=== PATIENT | male | born 1985 | race Caucasian/White ===

== ENCOUNTER 2020-12-17 12:54 | Emergency (ER) | payer MEDICAID, SELFPAY ==
[2020-12-17 13:08] VITALS: BP 151/99; PULSE 100; RESP 16; TEMP 36.9; O2SAT 99; BMI 29.2
--- NOTE | 2020-12-17 14:15 | XR_ITS ---
EXAMINATION: XR ELBOW, RIGHT CLINICAL INFORMATION: Pain, swelling, redness and warmth COMPARISON: None TECHNIQUE: AP, lateral, and oblique views of the right elbow. FINDINGS: Bone alignment is normal. No fracture or dislocation is seen. The joint spaces are normal. There is no joint effusion. There may be soft tissue swelling along the medial elbow, lower arm and forearm. XR/XR elbow RT min 3V IMPRESSION: Medial soft tissue swelling. Otherwise normal elbow.
--- NOTE | 2020-12-17 14:15 | ED.GENADULT ---
HPI - General Adult General Chief complaint: Skin/Abscess/Foreign Body Stated complaint: RIGHT ELBOW PAIN X'S 3 DAYS, ? SPIDER BITE Time Seen by Provider: 12/17/20 14:13 Source: patient Mode of arrival: ambulatory Limitations: language barrier History of Present Illness HPI narrative: 35 y/o male with history of DM, HTN presenting with right elbow pain, swelling and warmth after a possible spider bite. He reports an opening with clear drainage. No fevers at home. He has full ROM of the elbow. MD complaint: elbow pain Onset (ago): day(s) (3) Location: right and upper extremity Radiation: non-radiation Severity: moderate Severity scale (1-10): 6 Quality: burning and aching Pain Consistency: constant Relieving factors: none Exacerbating factors: movement Associated symptoms: denies other symptoms Treatments prior to arrival: none Related Data Previous Rx's Medication Instructions Recorded cephalexin [Keflex] 500 mg PO QID #28 cap 12/17/20 doxycycline monohydrate 100 mg PO BID #20 cap 12/17/20 Allergies Allergy/AdvReac Type Severity Reaction Status Date / Time No Known Allergies Allergy Unverified 08/14/20 17:22 Review of Systems Review of Systems: Constitutional: No Fever, No Chills ENT/Mouth: No sore throat Cardiovascular: No Chest Pain, No SOB, + Edema (right upper forarm) Respiratory: No Cough, No Sputum Gastrointestinal: No Nausea, No Vomiting Skin: + Skin Lesions, No rash Neuro: No Weakness, No Numbness, No Dizziness, No Headache Heme/Lymph: No Bruising PMFSH Past Medical History Attestation statement: The following information was validated with the patient. Medical History Diabetes Physical Exam Vital Signs: Vital Signs: Last Vital Signs Temp 98.4 F 12/17/20 13:08 Pulse 100 12/17/20 13:08 Resp 16 12/17/20 13:08 BP 151/99 H 12/17/20 13:08 Pulse Ox 99 12/17/20 13:08 Body Mass Index 29.2 Appearance: Alert. Oriented X3. No acute distress. HEENT: normal inspection CVS: Normal heart rate and rhythm. Pulses normal. Respiratory: No respiratory distress. Skin: Skin warm and dry. Normal skin color. Normal skin turgor. No rashes. Extremities: right dorsal elbow with erythema, warmth and swelling. minimal tenderness full ROM without pain. small wound with clear discharge, orange colored scabbing. no palpable abscess. compartments soft and compressable. Neuro: Oriented X 3. No motor deficit. No sensory deficit. Course Course Course Narrative: rapid medical assessment - 35 y/o male with hx DM, HTN presenting with 3 days of red, painful swollen right elbow with small amount of pus draining. ?Spider bite per patient. Will get XR of elbow and plan to start abx. Reevaluation(s) Reevaluation #1: XR shows soft tissue swelling. Will start abx - risk for MRSA, hx DM. Will refer to [facility] and have him f/u with PCP. He has been counseled on warning signs/symptoms to come back to the ER. Stable for d/c. Discharge Plan Discharge Clinical Impression: Cellulitis Qualifiers: Site of cellulitis: extremity Site of cellulitis of extremity: upper extremity Laterality: right Qualified Code(s): L03.113 - Cellulitis of right upper limb Patient Disposition: Home, Self-Care Instructions: Cellulitis (ED) Additional Instructions: Your x-ray showed soft tissue swelling. You are being started on 2 antibiotics for infection in the skin. Use warm soaks to your elbow multiple times per day. Elevate your arm when possible. Follow up with the Wound Center and your doctor. If the redness and swelling get worse, or if you can no longer bend or extend your elbow come back to the ER for further evaluation. Prescriptions: New doxycycline monohydrate 100 mg capsule 100 mg PO BID Qty: 20 RF: 0 cephalexin [Keflex] 500 mg capsule 500 mg PO QID Qty: 28 RF: 0 Referrals: [facility] [Outside] - 2 days Print Language: Syrian
--- NOTE | 2020-12-17 14:39 | PC.NURSE ---
PT EVALUATED BY HAYDEN COLLADO. PT AWARE/AGREEABLE TO PLAN OF CARE AND PENDING D/C.
== END 2020-12-17 14:52 | disposition home or self-care (01) ==
PROVIDERS: Emergency Provider Emergency Medicine
DX: L03.113 Cellulitis of right upper limb (principal); M25.521 Pain in right elbow; Z79.899 Other long term (current) drug therapy
CPT/HCPCS: 73080; 99283

== ENCOUNTER 2021-02-24 10:42 | Emergency (ER) | payer MEDICAID, SELFPAY ==
[2021-02-24 10:58] VITALS: BP 150/117; PULSE 88; RESP 18; TEMP 37.2; O2SAT 98; BMI 30.5
--- NOTE | 2021-02-24 11:11 | ED_ITS ---
HPI - Dental/Oral General Chief complaint: Dental/Oral Stated complaint: DENTAL PAIN Time Seen by Provider: 02/24/21 11:05 Source: patient and family Mode of arrival: ambulatory Limitations: no limitations History of Present Illness HPI Narrative: 35 y/o male presenting with 1 week of left upper tooth pain. He called an emergency dentist at [facility] and has an appointment on 03/11. They were worried about a possible infection and told him to complete a course of antibiotics before being seen. He denies fever, chills, facial swelling. He reports pain with eating and worsening pain last night. He has been taking extra strength tylenol with minimal relief. He has history of dental caries and extractions in the past. Location: Tooth # (2) Onset (ago): day(s) (7) Duration: worsening Severity: severe Relieving factors: nothing Exacerbating factors: chewing Context: history of dental caries and poor dental care Treatment prior to arrival: none Related Data Previous Rx's Medication Instructions Recorded cephalexin [Keflex] 500 mg PO QID #28 cap 12/17/20 doxycycline monohydrate 100 mg PO BID #20 cap 12/17/20 ibuprofen 600 mg PO Q8H PRN #20 tab 02/24/21 penicillin V potassium 500 mg PO BID #20 tab 02/24/21 tramadol 50 mg PO BID PRN #5 tab 02/24/21 Allergies Allergy/AdvReac Type Severity Reaction Status Date / Time No Known Allergies Allergy Verified 02/24/21 11:00 Review of Systems Review of Systems: Constitutional: No Fever, No Chills ENT/Mouth: No sore throat, No Rhinorrhea, No Swallowing Difficulty, +dental pain Cardiovascular: No Chest Pain, No SOB Respiratory: No Cough, No Sputum Gastrointestinal: No Nausea, No Vomiting, No Diarrhea, No abdominal Pain Skin: No Skin Lesions, No rash Neuro: + Headache Psych: No Anxiety/Panic, No Depression Heme/Lymph: No Lymphadenopathy PMFSH Past Medical History Attestation statement: The following information was validated with the patient. Medical History Diabetes Social History Social History Advance Directives: No Advance Directives Information Provided: No Physical Exam Vital Signs: Vital Signs: Last Vital Signs Temp 98.9 F 02/24/21 10:58 Pulse 88 02/24/21 10:58 Resp 18 02/24/21 10:58 BP 150/117 H 02/24/21 10:58 Pulse Ox 98 02/24/21 10:58 Body Mass Index 30.5 Appearance: Alert. Oriented X3. No acute distress. HEENT: normal external inspection, upper pre-molar with mild decay, mild gingival erythema and tenderness without palpable abscess, uvula midline, no LAD, no trismus CVS: Normal heart rate and rhythm. Pulses normal. Respiratory: No respiratory distress. Skin: Skin warm and dry. Normal skin color. Normal skin turgor. No rashes. Extremities: atraumatic, no edema. Neuro: Oriented X 3. No motor deficit. No sensory deficit. Course Course Course Narrative: 35 y/o male presenting with upper left premolar pain x1 week. No evidence of abscess on exam. Will treat with NSAID, abx and have him follow up as scheduled. He is stable for d/c, instructed to return to the ER if wor sening pain or swelling. Critical Care Time Critical Care Time Critical Care Time: No Discharge Plan Discharge Clinical Impression: Toothache Patient Disposition: Home, Self-Care Instructions: Toothache (ED) Additional Instructions: Take the prescribed antibiotic until it is completely gone. Take ibuprofen every 6 hours as needed for pain - take with food. Take tramadol as needed for severe pain. Do not drive after taking this, it can make you drowsy. Follow up with your dentist as scheduled in 2 weeks. If you have worsening pain despite prescribed medications come back to the ER for further evaluation. Prescriptions: New ibuprofen 600 mg tablet 600 mg PO Q8H PRN (Reason: pain) Qty: 20 RF: 0 penicillin V potassium 500 mg tablet 500 mg PO BID Qty: 20 RF: 0 tramadol 50 mg tablet 50 mg PO BID PRN (Reason: pain) Qty: 5 RF: 0 No Action doxycycline monohydrate 100 mg capsule 100 mg PO BID Qty: 20 RF: 0 cephalexin [Keflex] 500 mg capsule 500 mg PO QID Qty: 28 RF: 0 Stand Alone Forms: Work/School Release Discharge Date/Time: 02/24/21 11:30
== END 2021-02-24 11:30 | disposition home or self-care (01) ==
PROVIDERS: Emergency Provider Emergency Medicine; PCP Internal Medicine
DX: K08.89 Other specified disorders of teeth and supporting structures (principal); Z79.899 Other long term (current) drug therapy
CPT/HCPCS: 99283

== ENCOUNTER 2021-04-17 23:14 | Emergency (ER) | payer MEDICAID, SELFPAY ==
[2021-04-17 23:22] VITALS: BP 170/111; PULSE 115; RESP 14; O2SAT 100; BMI 30.1
[2021-04-18 00:09] VITALS: BP 158/104; PULSE 89; RESP 16; TEMP 36.9; O2SAT 97
--- NOTE | 2021-04-18 01:58 | PC.NURSE ---
PT LEFT AMA, PT EDUCATED ON THE DANGERS OF LEAVING AMA, BUT PT STILL WISHED TO LEAVE. PT REFUSED TO HAVE VITAL SIGNS TAKEN PRIOR TO D/C, PT IS A+O, AMBULATORY, STEADY GAIT, AND ACCOMPANIED BY FAMILY.
--- NOTE | 2021-04-18 02:06 | ED.DIZZY ---
HPI - Dizziness General Chief Complaint: Dizziness Stated Complaint: dizzy Time Seen by Provider: 04/18/21 01:48 Related Data Previous Rx's Medication Instructions Recorded cephalexin [Keflex] 500 mg PO QID #28 cap 12/17/20 doxycycline monohydrate 100 mg PO BID #20 cap 12/17/20 ibuprofen 600 mg PO Q8H PRN #20 tab 02/24/21 penicillin V potassium 500 mg PO BID #20 tab 02/24/21 tramadol 50 mg PO BID PRN #5 tab 02/24/21 Allergies Allergy/AdvReac Type Severity Reaction Status Date / Time No Known Allergies Allergy Verified 02/24/21 11:00 [facility] Past Medical History Medical History Diabetes Social History Social History Alcohol intake: never Smoking Status: Never smoker Use of substances other than those prescribed or required for medical reasons: No Advance Directives: No Advance Directives Information Provided: Yes Physical Exam Vital Signs: Vital Signs: Last Vital Signs Temp 98.5 F 04/18/21 00:09 Pulse 89 04/18/21 00:09 Resp 16 04/18/21 00:09 BP 158/104 H 04/18/21 00:09 Pulse Ox 97 04/18/21 00:09 Body Mass Index 30.1 Discharge Plan Discharge Patient Disposition: Left Against Medical Advice Prescriptions: No Action doxycycline monohydrate 100 mg capsule 100 mg PO BID Qty: 20 RF: 0 cephalexin [Keflex] 500 mg capsule 500 mg PO QID Qty: 28 RF: 0 ibuprofen 600 mg tablet 600 mg PO Q8H PRN (Reason: pain) Qty: 20 RF: 0 penicillin V potassium 500 mg tablet 500 mg PO BID Qty: 20 RF: 0 tramadol 50 mg tablet 50 mg PO BID PRN (Reason: pain) Qty: 5 RF: 0 Discharge Date/Time: 04/18/21 01:59
== END 2021-04-18 01:59 | disposition left against medical advice (07) ==
PROVIDERS: Emergency Provider Student in an Organized Health Care Education/Training Program; PCP Internal Medicine
DX: R42 Dizziness and giddiness (principal)
CPT/HCPCS: 99284

== ENCOUNTER 2021-04-18 21:19 | Emergency (ER) | payer MEDICAID, SELFPAY ==
[2021-04-18 22:29] VITALS: BP 165/96; PULSE 91; RESP 16; TEMP 36.8; O2SAT 99; BMI 30.1
[2021-04-19 02:00] VITALS: BP 151/101; PULSE 78; RESP 18; O2SAT 98
--- NOTE | 2021-04-19 02:37 | ECG_ITS ---
Test Reason : HEADACHE Blood Pressure : / mmHG Vent. Rate : 072 BPM Atrial Rate : 072 BPM P-R Int : 172 ms QRS Dur : 086 ms QT Int : 380 ms P-R-T Axes : 042 008 -04 degrees QTc Int : 416 ms Normal sinus rhythm Nonspecific ST and T wave abnormality Abnormal ECG When compared with ECG of 03-SEP-2011 23:55, ST elevation now present in Anterior leads Referred By: Elvie Underowod Electronically Signed By:BEL VANG MD
[2021-04-19 02:58] LABS: MANUAL DIFF FLAG NO
[2021-04-19 02:59] LABS: Basophils Percent Auto 0.2 % (0-2); Eosinophils Absolute Auto 0.1 X10*3/uL (0.0-0.4); Eosinophils Percent Auto 1.1 % (0-4); Hematocrit 43.5 % (42-52); Hemoglobin 13.4 g/dl (14.0-18.0); Imm Gran Abs Auto 0.04 X10*3/uL (0.00-0.03); Imm Gran Pct Auto 0.4 % (0.0-0.4); Lymphocytes Absolute Auto 3.3 X10*3/uL (1.2-4.9); Lymphocytes Percent Auto 34.1 % (20-40); Mean Corpuscular HGB Conc 30.8 g/dl (31.0-36.0); Mean Corpuscular Hemoglobin 22.8 pg (27.0-33.0); Mean Platelet Volume 10.4 fL (9.4-12.4); Monocytes Absolute Auto 0.6 X10*3/uL (0.1-1.2); Monocytes Percent Auto 6.5 % (2-11); Neutrophils Absolute Auto 5.6 X10*3/uL (2.0-8.3); Neutrophils Percent Auto 57.7 % (45-73); Platelet Count 255 X10*3/uL (160-400); Red Blood Count 5.88 X10*6/uL (4.60-5.80); White Blood Count 9.7 X10*3/uL (4.8-10.8)
--- NOTE | 2021-04-19 03:13 | ED.GENADULT ---
HPI - General Adult General Chief complaint: Headache Stated complaint: High blood pressure Time Seen by Provider: 04/19/21 00:04 Source: patient Mode of arrival: ambulatory History of Present Illness HPI narrative: 36-year-old male with history of diabetes and recently found out that he has high blood pressure and now has been experiencing mild headaches that resolved with Tylenol and currently that has resolved. He denies any shortness of breath, chest pain/palpitations, GI or symptoms. Related Data Previous Rx's Medication Instructions Recorded cephalexin [Keflex] 500 mg PO QID #28 cap 12/17/20 doxycycline monohydrate 100 mg PO BID #20 cap 12/17/20 ibuprofen 600 mg PO Q8H PRN #20 tab 02/24/21 penicillin V potassium 500 mg PO BID #20 tab 02/24/21 tramadol 50 mg PO BID PRN #5 tab 02/24/21 hydrochlorothiazide 12.5 mg PO DAILY 14 Days #14 tab 04/19/21 Allergies Allergy/AdvReac Type Severity Reaction Status Date / Time No Known Allergies Allergy Verified 04/18/21 22:33 Review of Systems Review of Systems: Pertinent positives and negatives as stated in HPI 10 point review systems is other otherwise negative PMFSH Past Medical History Source: nursing notes reviewed Medical History Diabetes Social History Social History Alcohol intake: never Smoking Status: Current every day smoker Smoked in Last 30 Days: Yes Substance Use Type: Marijuana Advance Directives: No Physical Exam Vital Signs: Vital Signs: Last Vital Signs Temp 98.2 F 04/18/21 22:29 Pulse 78 04/19/21 02:00 Resp 18 04/19/21 02:00 BP 151/101 H 04/19/21 02:00 Pulse Ox 98 04/19/21 02:00 Body Mass Index 30.1 VITAL SIGNS: Reviewed. GENERAL: Well developed, well nourished, in no acute distress. HEAD: Normocephalic/atraumatic EYES: PERRLA, EOMI NOSE: Nares patent bilateral OROPHARYNX: no oral lesions noted, posterior pharynx clear NECK: Supple, no adenopathy LUNGS: Normal breath sounds. No adventitious sounds or accessory muscle use. SpO2<98> CARDIOVASCULAR: Regular rate and rhythm without noted murmurs, no JVD or lower extremity edema. ABDOMEN: Soft, non-tender, non-distended with bowel sounds. NEUROLOGIC: Alert and oriented x 4. Strength and sensation to light touch were grossly intact x 4, no focal findings. Course Course Course Narrative: 36-year-old male with history and clinical presentation suggestive of anxiety regarding recent diagnosis of high blood pressure and is currently asymptomatic without any neurological findings. Will rule out any evidence of renal dysfunction, and obtain troponin. Patient provided with a 1 time dose of hydrochlorothiazide 25 mg. Review of all investigations negative for any acute findings from baseline. All results were discussed with him at bedside and he was discharged to home in stable condition. Medical Decision Making Lab Data Result diagrams: 04/19/21 02:51 04/19/21 02:51 Labs: Lab Results 04/19/21 04/19/21 04/19/21 Range/Units 02:51 02:51 02:51 WBC 9.7 (4.8-10.8) X10*3/uL RBC 5.88 H (4.60-5.80) X10*6/uL Hgb 13.4 L (14.0-18.0) g/dl Hct 43.5 (42-52) % MCV 74.0 L (80-98) fL MCH 22.8 L (27.0-33.0) pg MCHC 30.8 L (31.0-36.0) g/dl RDW 14.0 (11.0-16.0) % Plt Count 255 (160-400) X10*3/uL MPV 10.4 (9.4-12.4) fL Immature Gran % (Auto) 0.4 (0.0-0.4) % Neut % (Auto) 57.7 (45-73) % Lymph % (Auto) 34.1 (20-40) % Wright % (Auto) 6.5 (2-11) % Eos % (Auto) 1.1 (0-4) % Baso % (Auto) 0.2 (0-2) % Lymph # (Auto) 3.3 (1.2-4.9) X10*3/uL Wright # (Auto) 0.6 (0.1-1.2) X10*3/uL Eos # (Auto) 0.1 (0.0-0.4) X10*3/uL Baso # (Auto) 0.0 (0.0-0.2) X10*3/uL Abs Immat Gran (auto) 0.04 H (0.00-0.03) X10*3/uL Absolute Neuts (auto) 5.6 (2.0-8.3) X10*3/uL Absolute Nucleated RBC 0.000 (0.0-0.012) X10*3/uL Nucleated RBC % (auto) 0.0 (0.0-0.2) /100WBC Sodium 139 (135-145) mmol/L Potassium 4.0 (3.3-5.1) mmol/L Chloride 101 (96-108) mmol/L Carbon Dioxide 29 (22-29) mmol/L Anion Gap 13 (12-20) BUN 12 (9-16) mg/dL Creatinine 0.79 (0.5-1.4) mg/dL Estim Creat Clear Calc 155.7 Estimated GFR > 60 Random Glucose 126 H (60-115) mg/dL Calcium 9.8 (8.4-10.2) mg/dL Total Bilirubin 0.4 (0.0-1.0) mg/dL AST 20 (5-37) U/L ALT 28 (0-40) U/L Alkaline Phosphatase 75 (39-117) U/L Troponin I High Sens (<3.5-35.0) ng/L Total Protein 8.3 H (6.5-8.0) g/dL Albumin 4.7 (3.5-5.0) g/dL Urine Color Urine Appearance Urine pH (5.0-8.0) Ur Specific Crockett (1.005-1.025) Urine Protein (NEG-TRACE) MG/DL Urine Glucose (UA) (NEG) MG/DL Urine Ketones (NEG) MG/DL Urine Blood (NEG) Urine Nitrite (NEG) Ur Leukocyte Esterase (NEG) Urine Opiates Screen (Not Detect) Ur Barbiturates Screen (Not Detect) Ur Phencyclidine Scrn (Not Detect) Ur Amphetamines Screen (Not Detect) U Benzodiazepines Scrn (Not Detect) Urine Cocaine Screen (Not Detect) U Marijuana (THC) Screen (Not Detect) Ethyl Alcohol < 10 mg/dL 04/19/21 04/19/21 04/19/21 Range/Units 02:51 03:50 03:50 WBC (4.8-10.8) X10*3/uL RBC (4.60-5.80) X10*6/uL Hgb (14.0-18.0) g/dl Hct (42-52) % MCV (80-98) fL MCH (27.0-33.0) pg MCHC (31.0-36.0) g/dl RDW (11.0-16.0) % Plt Count (160-400) X10*3/uL MPV (9.4-12.4) fL Immature Gran % (Auto) (0.0-0.4) % Neut % (Auto) (45-73) % Lymph % (Auto) (20-40) % Wright % (Auto) (2-11) % Eos % (Auto) (0-4) % Baso % (Auto) (0-2) % Lymph # (Auto) (1.2-4.9) X10*3/uL Wright # (Auto) (0.1-1.2) X10*3/uL Eos # (Auto) (0.0-0.4) X10*3/uL Baso # (Auto) (0.0-0.2) X10*3/uL Abs Immat Gran (auto) (0.00-0.03) X10*3/uL Absolute Neuts (auto) (2.0-8.3) X10*3/uL Absolute Nucleated RBC (0.0-0.012) X10*3/uL Nucleated RBC % (auto) (0.0-0.2) /100WBC Sodium (135-145) mmol/L Potassium (3.3-5.1) mmol/L Chloride (96-108) mmol/L Carbon Dioxide (22-29) mmol/L Anion Gap (12-20) BUN (9-16) mg/dL Creatinine (0.5-1.4) mg/dL Estim Creat Clear Calc Estimated GFR Random Glucose (60-115) mg/dL Calcium (8.4-10.2) mg/dL Total Bilirubin (0.0-1.0) mg/dL AST (5-37) U/L ALT (0-40) U/L Alkaline Phosphatase (39-117) U/L Troponin I High Sens < 3.5 (<3.5-35.0) ng/L Total Protein (6.5-8.0) g/dL Albumin (3.5-5.0) g/dL Urine Color YELLOW Urine Appearance CLEAR Urine pH 6.0 (5.0-8.0) Ur Specific Crockett 1.020 (1.005-1.025) Urine Protein NEG (NEG-TRACE) MG/DL Urine Glucose (UA) NEG (NEG) MG/DL Urine Ketones NEG (NEG) MG/DL Urine Blood NEG (NEG) Urine Nitrite NEG (NEG) Ur Leukocyte Esterase NEG (NEG) Urine Opiates Screen Not Detected (Not Detect) Ur Barbiturates Screen Not Detected (Not Detect) Ur Phencyclidine Scrn Not Detected (Not Detect) Ur Amphetamines Screen Not Detected (Not Detect) U Benzodiazepines Scrn Not Detected (Not Detect) Urine Cocaine Screen Not Detected (Not Detect) U Marijuana (THC) Screen POSITIVE H (Not Detect) Ethyl Alcohol mg/dL Discharge Plan Discharge Clinical Impression: Hypertension Patient Disposition: Home, Self-Care Instructions: DASH Eating Plan (ED), Hypertension (ED) Additional Instructions: Follow-up with your primary care provider in 2-3 days for re-evaluation and discussion regarding medication for blood pressure control. Prescriptions: New hydrochlorothiazide 12.5 mg tablet 12.5 mg PO DAILY 14 Days Qty: 14 RF: 0 No Action doxycycline monohydrate 100 mg capsule 100 mg PO BID Qty: 20 RF: 0 cephalexin [Keflex] 500 mg capsule 500 mg PO QID Qty: 28 RF: 0 ibuprofen 600 mg tablet 600 mg PO Q8H PRN (Reason: pain) Qty: 20 RF: 0 penicillin V potassium 500 mg tablet 500 mg PO BID Qty: 20 RF: 0 tramadol 50 mg tablet 50 mg PO BID PRN (Reason: pain) Qty: 5 RF: 0 Referrals: Asiya Ochoa MD [Primary Care Provider] - 2 days Print Language: Malay
[2021-04-19 03:20] LABS: Ethanol < 10 mg/dL
[2021-04-19 03:22] LABS: Alanine Aminotransferase 28 U/L (0-40); Albumin Level 4.7 g/dL (3.5-5.0); Alkaline Phosphatase 75 U/L (39-117); Anion Gap 13 (12-20); Aspartate Amino Transferase 20 U/L (5-37); Bilirubin Total 0.4 mg/dL (0.0-1.0); Blood Urea Nitrogen 12 mg/dL (9-16); Calcium 9.8 mg/dL (8.4-10.2); Carbon Dioxide 29 mmol/L (22-29); Chloride 101 mmol/L (96-108); Creatinine Clr Calc Pharmacy 155.7; Estimated Glomerular Filt Rate > 60; Glucose Random 126 mg/dL (60-115); Sodium 139 mmol/L (135-145); Total Protein 8.3 g/dL (6.5-8.0)
[2021-04-19 04:02] LABS: Glucose Urine UA NEG (NEG); Leukocyte Esterase Urine NEG (NEG); Nitrite Urine NEG (NEG); Urine Blood NEG (NEG); Urine Ketones NEG (NEG); Urine Protein NEG (NEG-TRACE)
[2021-04-19 04:05] LABS: Appearance Urine CLEAR; Color Urine YELLOW
[2021-04-19 04:11] LABS: Troponin-I High Sensitivity < 3.5 ng/L (<3.5-35.0)
[2021-04-19 04:26] LABS: Amphetamine Screen Urine Not Detected (Not Detect); Barbiturates, Urine Not Detected (Not Detect); Benzodiazepines Screen Urine Not Detected (Not Detect); Cannabinoid Screen Urine POSITIVE (Not Detect); Cocaine Screen Urine Not Detected (Not Detect); Opiate Screen Urine Not Detected (Not Detect); Phencyclidine Screen Urine Not Detected (Not Detect)
[2021-04-19 04:34] VITALS: BP 153/99; PULSE 72; RESP 16; O2SAT 99
[2021-04-19] MEDS: hydroCHLOROthiazide 25 MG TABLET PO (04:35)
--- NOTE | 2021-04-19 04:36 | PC.NURSE ---
Report taken from Kati, pat RN resuming care. Pt found sitting upright in bed, family at bedside. VSS. Pt medicated per JAN. Continue to monitor.
== END 2021-04-19 04:57 | disposition home or self-care (01) ==
PROVIDERS: Emergency Provider Student in an Organized Health Care Education/Training Program; PCP Internal Medicine
DX: I10 Essential (primary) hypertension (principal); E11.9 Type 2 diabetes mellitus without complications; F17.200 Nicotine dependence, unspecified, uncomplicated; F12.90 Cannabis use, unspecified, uncomplicated
CPT/HCPCS: 36415; 80053; 80307; 80320; 81003; 84484; 85025; 93005; 99283; 99285

== ENCOUNTER 2021-05-29 06:44 | Emergency (ER) | payer MEDICAID, SELFPAY ==
[2021-05-29 06:54] VITALS: BP 161/96; PULSE 85; RESP 16; TEMP 36.8; O2SAT 98; BMI 30.1
--- NOTE | 2021-05-29 08:26 | ED.DENTAL ---
HPI - Dental/Oral General Chief complaint: Dental/Oral Stated complaint: oral pain Time Seen by Provider: 05/29/21 08:09 Source: patient Mode of arrival: ambulatory Limitations: no limitations History of Present Illness MD Complaint: tooth pain ( right upper molar right lower molar) Onset (ago): day(s) ( a few days worse today) Duration: worsening Severity: moderate Relieving factors: nothing Exacerbating factors: nothing Context: history of dental caries ( old dental fractures) and poor dental care Treatment prior to arrival: other ( has been taking [id number] Motrin Tylenol without any symptomatic relief) Related Data Previous Rx's Medication Instructions Recorded cephalexin [Keflex] 500 mg PO QID #28 cap 12/17/20 doxycycline monohydrate 100 mg PO BID #20 cap 12/17/20 ibuprofen 600 mg PO Q8H PRN #20 tab 02/24/21 penicillin V potassium 500 mg PO BID #20 tab 02/24/21 tramadol 50 mg PO BID PRN #5 tab 02/24/21 hydrochlorothiazide 12.5 mg PO DAILY 14 Days #14 tab 04/19/21 acetaminophen [Tylenol Extra 1,000 mg PO QID PRN #14 tab 05/29/21 Strength] amoxicillin-pot clavulanate 1 tab PO BID 10 Days #20 tab 05/29/21 [Augmentin] ibuprofen 800 mg PO Q8H PRN #14 tab 05/29/21 oxycodone 5 mg PO BID PRN #10 tab 05/29/21 Allergies Allergy/AdvReac Type Severity Reaction Status Date / Time No Known Allergies Allergy Verified 04/18/21 22:33 Review of Systems Review of Systems: Constitutional : No Fever, No Chills, No changes in PO intake, No difficulty speaking, no recent dental procedure, no heat or cold intolerance while eating, no recent face trauma, ENT/Mouth : + Dental pain, No Sore throat, No Jaw pain, No throat swelling, No swallowing difficulty, no change in voice, No facial swelling, no drooling, no trismus, no bleeding, no lacerations, no tongue swelling, gum swelling, Eyes: No Eye Pain, No periorbital Swelling Cardiovascular : No Chest Pain, No SOB Respiratory : No Cough, No Sputum, No Wheezing, No Smoke Exposure, No Dyspnea Gastrointestinal : No Nausea, No Vomiting, No Diarrhea Genitourinary : No Dysuria Musculoskeletal : No Myalgias Skin : No rash, no facial swelling or redness, Neuro : No Weakness, No Numbness, No Headache Yes all other systems are reviewed and are negative [facility] Past Medical History Attestation statement: The following information was validated with the patient. Medical History Diabetes Social History Social History Alcohol intake: never Substance Use Type: Marijuana Advance Directives: Yes Advance Directives Information Provided: No Advance Directives on File: No Physical Exam Vital Signs: Vital Signs: Last Vital Signs Temp 98.3 F 05/29/21 06:54 Pulse 85 05/29/21 06:54 Resp 16 05/29/21 06:54 BP 161/96 H 05/29/21 06:54 Pulse Ox 98 05/29/21 06:54 Body Mass Index 30.1 vital signs have been reviewed as normal and appeared to be correct. Blood pressure normal. Heart rate normal. Respiration rate normal. Temperature normal. Oxygen saturation normal. Appearance: Alert. Oriented X3. No acute distress. Head: Normal external exam. Normocephalic. Atraumatic. Eyes: PERRLA. EOMI. Conjunctiva and sclera normal. Eyelids normal. ENT: EAC normal. TM's Normal. Pharynx normal. Uvula midline. Moist mucous membranes. No trismus noted. No drooling noted. No muffled voice noted. Dentition: Patient with poor dentition throughout with multiple old fractured teeth with multiple dental caries. Gingival within normal limits. No fluctuance. Not consistent with peritonsillar abscess. Not consistent with dental abscess. No salivary duct obstruction noted. Neck: Normal inspection. Neck supple. FROM. No adenopathy. Thyroid Normal. No meningeal signs. No neck mass noted. Trachea midline. CVS: Normal heart rate and rhythm. Heart sound normal. No murmurs noted. Pulses normal throughout. Respiratory: No respiratory distress. Painless inspiration. Breath sounds normal. No wheezes/rales/rhonchi noted. Chest nontender. No accessory muscle usage noted or decreased air movement noted. Back: Full range of motion noted. Skin: Skin warm and dry. Normal skin color. Normal skin turgor. No rashes/lesions/lacerations noted. Extremities:Extremities exhibit normal range of motion. Extremities nontender. Neuro: Oriented X 3. No motor deficit. No sensory deficit. Reflexes normal. MDM - Dental/Oral Medical Records Attestation: I reviewed the patient's medical records. Discharge Plan Discharge Clinical Impression: Toothache, Dental caries, Fracture of tooth Patient Disposition: Home, Self-Care Instructions: Mouth Care (ED) Additional Instructions: you need to follow-up with your dentist as soon as possible. Return if any new or worsening symptoms. Prescriptions: New ibuprofen 800 mg tablet 800 mg PO Q8H PRN (Reason: pain) Qty: 14 RF: 0 acetaminophen [Tylenol Extra Strength] 500 mg tablet 1,000 mg PO QID PRN (Reason: fever or pain) Qty: 14 RF: 0 amoxicillin-pot clavulanate [Augmentin] 875-125 mg tablet 1 tab PO BID 10 Days Qty: 20 RF: 0 oxycodone 5 mg tablet 5 mg PO BID PRN (Reason: pain) Qty: 10 RF: 0 No Action doxycycline monohydrate 100 mg capsule 100 mg PO BID Qty: 20 RF: 0 cephalexin [Keflex] 500 mg capsule 500 mg PO QID Qty: 28 RF: 0 ibuprofen 600 mg tablet 600 mg PO Q8H PRN (Reason: pain) Qty: 20 RF: 0 penicillin V potassium 500 mg tablet 500 mg PO BID Qty: 20 RF: 0 tramadol 50 mg tablet 50 mg PO BID PRN (Reason: pain) Qty: 5 RF: 0 hydrochlorothiazide 12.5 mg tablet 12.5 mg PO DAILY 14 Days Qty: 14 RF: 0 Referrals: Asiya Ochoa MD [Primary Care Provider] - 2 days Print Language: Senegalese
== END 2021-05-29 08:33 | disposition home or self-care (01) ==
PROVIDERS: Emergency Provider Emergency Medicine Emergency Medical Services; PCP Internal Medicine
DX: K02.9 Dental caries, unspecified (principal); S02.5XXA Fracture of tooth (traumatic), initial encounter for closed fracture; X58.XXXA Exposure to other specified factors, initial encounter; Y93.9 Activity, unspecified; Y92.9 Unspecified place or not applicable; Y99.9 Unspecified external cause status
CPT/HCPCS: 99283

== ENCOUNTER 2022-03-11 03:44 | Emergency (ER) | payer MEDICAID, SELFPAY ==
--- NOTE | ~2022-03-11 | CT_ITS ---
EXAMINATION: CT ABDOMEN AND PELVIS WITHOUT CONTRAST CLINICAL INFORMATION: Abdominal pain. COMPARISON: CT abdomen and pelvis 05/13/2015.. TECHNIQUE: Multidetector volumetric imaging was performed from the superior aspect of the liver through the pubic symphysis. Sagittal and coronal reformatted images were obtained on the technologist's workstation. This CT examination was performed using dose optimization techniques as appropriate, variously including the following: *Automated exposure control *Adjustment of mA and/or kV according to patient size (this includes techniques or standardized protocols for targeted exams where dose is matched to indication/reason for exam; i.e. extremities or head) *Use of iterative reconstruction technique DLP: 791 mGy-cm FINDINGS: LUNG BASES: The visualized lung bases are unremarkable. LIVER, GALLBLADDER, AND BILIARY TREE: The liver is enlarged in size measuring 24 cm in length. There is diffuse hypoattenuation without focal lesion. No intrahepatic ductal dilatation. There is normal hepatic contour. The gallbladder is unremarkable with no evidence of radiopaque gallstones, gallbladder wall thickening, or obvious pericholecystic inflammatory changes. PANCREAS: Unremarkable. SPLEEN: Unremarkable. ADRENAL GLANDS: Unremarkable. KIDNEYS AND URETERS: The kidneys are normal in size, shape, and attenuation. No hydronephrosis, hydroureter, or calculi seen. No perinephric stranding. BLADDER: Unremarkable. GASTROINTESTINAL TRACT: There is scattered stool and gas seen throughout the colon without significant distention. The small bowel loops are normal caliber. Appendix ABDOMINAL WALL: No significant hernia is appreciated. LYMPH NODES: Normal. VASCULAR: Unremarkable. PELVIC VISCERA: Unremarkable. OSSEOUS STRUCTURES: No aggressive lytic or sclerotic process seen. CT/CT abdomen pelvis wo con IMPRESSION: No acute intra-abdominal process seen. No evidence of urolithiasis or hydronephrosis. Mild attenuation liver without focal lesion. No major change compared to previous study 05/13/2015. Fleischner guidelines were followed.
[2022-03-11 04:06] VITALS: BP 158/93; PULSE 79; RESP 18; TEMP 36.6; O2SAT 99; BMI 27.8
--- NOTE | 2022-03-11 05:06 | PC.NURSE ---
pt a&o, no sob or chest pain. IV placed and labs drawn. pt changed into hospital attire.
[2022-03-11 05:07] LABS: Basophils Absolute Auto 0.1 X10*3/uL (0.0-0.2); Basophils Percent Auto 0.3 % (0-2); Eosinophils Percent Auto 0.2 % (0-4); Hematocrit 44.7 % (42.0-52.0); Hemoglobin 13.9 g/dl (14.0-18.0); Imm Gran Abs Auto 0.06 X10*3/uL (0.00-0.03); Imm Gran Pct Auto 0.4 % (0.0-0.4); Lymphocytes Absolute Auto 1.8 X10*3/uL (1.2-4.9); Lymphocytes Percent Auto 11.1 % (20-40); MANUAL DIFF FLAG NO; Mean Corpuscular HGB Conc 31.1 g/dl (31.0-36.0); Mean Corpuscular Hemoglobin 22.6 pg (27.0-33.0); Mean Corpuscular Volume 72.8 fL (80.0-98.0); Mean Platelet Volume 11.5 fL (9.4-12.4); Monocytes Absolute Auto 0.7 X10*3/uL (0.1-1.2); Monocytes Percent Auto 4.4 % (2-11); Neutrophils Absolute Auto 13.3 x10*3/uL (2.0-8.3); Neutrophils Percent Auto 83.6 % (45-73); Platelet Count 244 X10*3/uL (160-400); Red Blood Count 6.14 X10*6/uL (4.60-5.80); Red Cell Distribution Width 13.9 % (11.0-16.0); White Blood Count 15.9 X10*3/uL (4.8-10.8)
[2022-03-11 05:27] LABS: Anion Gap 21 (12-20); Blood Urea Nitrogen 11 mg/dL (9-16); Calcium 10.1 mg/dL (8.4-10.2); Carbon Dioxide 20 mmol/L (22-29); Chloride 102 mmol/L (96-108); Creatinine Clr Calc Pharmacy 141.4; Estimated Glomerular Filt Rate > 60; Glucose Random 202 mg/dL (60-115); Lipase 9 U/L (8-78); Potassium 4.3 mmol/L (3.3-5.1); Sodium 139 mmol/L (135-145)
--- NOTE | 2022-03-11 05:45 | PC.NURSE ---
Pt awaiting provider evaluation. Provider is currently inserting chest tube in another pt room.
[2022-03-11 06:08] VITALS: BP 148/97; PULSE 81; RESP 16; TEMP 37.1; O2SAT 99
--- NOTE | 2022-03-11 07:04 | ED_ITS ---
HPI - Abdominal Pain General Chief Complaint: Abdominal Pain Stated Complaint: vomiting, migraine, insomnia Time Seen by Provider: 03/11/22 07:02 Source: patient and family Mode of arrival: ambulatory Limitations: no limitations History of Present Illness HPI narrative: 36-year-old male came in for evaluation of abdominal pain. Abdominal pain started since 12 midnight after eating pork and rice, patient described pain as burning and dull aching to the epigastric/right upper quadrant areas, pain is constant, described as severe 7/10, associated with nausea and vomiting, no diarrhea, no fever, no chills, no other sick contacts. No recent travel, no recent use of antibiotic. No history of abdominal surgery. No history of alcohol abuse just small marijuana daily. Related Data Previous Rx's Medication Instructions Recorded cephalexin 500 mg capsule (Keflex) 500 mg PO QID #28 cap 12/17/20 doxycycline monohydrate 100 mg 100 mg PO BID #20 cap 12/17/20 capsule ibuprofen 600 mg tablet 600 mg PO Q8H PRN #20 tab 02/24/21 penicillin V potassium 500 mg 500 mg PO BID #20 tab 02/24/21 tablet tramadol 50 mg tablet 50 mg PO BID PRN #5 tab 02/24/21 hydrochlorothiazide 12.5 mg tablet 12.5 mg PO DAILY 14 Days #14 tab 04/19/21 acetaminophen 500 mg tablet 1,000 mg PO QID PRN #14 tab 05/29/21 (Tylenol Extra Strength) amoxicillin 875 mg-potassium 1 tab PO BID 10 Days #20 tab 05/29/21 clavulanate 125 mg tablet (Augmentin) ibuprofen 800 mg tablet 800 mg PO Q8H PRN #14 tab 05/29/21 oxycodone 5 mg tablet 5 mg PO BID PRN #10 tab 05/29/21 omeprazole 40 mg capsule,delayed 40 mg PO DAILY #15 cap 03/11/22 release ondansetron 4 mg disintegrating 4 mg PO BEDTIME PRN 4 Days #8 tab 03/11/22 tablet Allergies Allergy/AdvReac Type Severity Reaction Status Date / Time No Known Allergies Allergy Verified 04/18/21 22:33 Review of Systems Review of Systems All other systems are reviewed and are negative Constitutional: Reports as per HPI and Reports no additional constitutional complaints Eyes: Reports as per HPI and Reports no additional eye complaints Reports system reviewed and no additional complaints, except as documented Cardiovascular: Reports as per HPI and Reports no additional cardiovascular complaints Respiratory: Reports as per HPI and Reports no additional respiratory complaints Gastrointestinal: Reports as per HPI and Reports no additional gastrointestinal complaints Genitourinary: Reports no additional female genitourinary complaints Musculoskeletal: Reports no additional musculoskeletal complaints Skin/Breast: Reports system reviewed and no additional complaints, except as doc u Psychiatric: Reports no additional psychiatric complaints Endocrine: Reports no additional endocrine complaints Hematologic/Lymphatic: Reports no additional hematologic/lymphatic complaints Allergic/Immunologic: Reports no additional allergic/immunologic complaints Reports system reviewed and no additional complaints, except as documented and Reports Abnormal speech present [facility] Past Medical History Medical History Diabetes Social History Social History Alcohol intake: never Substance Use Type: Marijuana Advance Directives: No Advance Directives Information Provided: Yes Physical Exam ED Vital Signs: Vital Signs - 24 hr 03/11/22 04:06 03/11/22 06:08 03/11/22 07:59 Temperature 97.9 F 98.7 F Pulse Rate 79 81 89 Respiratory Rate 18 16 14 Blood Pressure 158/93 H 148/97 H 139/80 Pulse Oximetry 99 99 99 03/11/22 12:36 Temperature Pulse Rate 96 Respiratory Rate 16 Blood Pressure 167/97 H Pulse Oximetry 98 BMI result Body Mass Index 27.8 Vital signs have been reviewed as appeared to be correct. Blood pressure normal. Heart rate normal. Respiration rate normal. Temperature normal. Oxygen saturation normal. Appearance: Alert. Oriented X3. No acute distress. Head: Normal external exam. Normocephalic. Atraumatic. No Nava signs noted. No raccoon eyes noted Eyes: PERRLA. EOMI. Conjunctiva and sclera normal. Eyelids normal. ENT: TM's Normal. Pharynx normal. Uvula midline. Moist mucous membranes. No trismus noted. No drooling noted. No muffled voice noted. Neck: Normal inspection. Neck supple. FROM. No adenopathy. Thyroid Normal. No meningeal signs. No neck mass noted. CVS: Normal heart rate and rhythm. Heart sound normal. No murmurs noted. Pulses normal throughout. Respiratory: No respiratory distress. Painless inspiration. Breath sounds normal. No wheezes/rales/rhonchi noted. Chest nontender. No accessory muscle usage noted or decreased air movement noted. Abdomen: Soft, epigastric tenderness, no guarding, no rebound tenderness. Bowel sounds normal in all 4 quadrants. No distention noted. No organomegaly noted. No visible injury noted. Back: No CVA tenderness. Full range of motion noted. Skin: Skin warm and dry. Normal skin color. Normal skin turgor. No rashes/lesions/lacerations noted. Extremities: No lower extremity edema. Extremities exhibit normal range of motion. Extremities nontender. Neuro: Oriented X 3. Cranial nerve exam: II-XII are grossly intact No motor deficit. No sensory deficit. Reflexes normal. Course Course Course Narrative: Assessment and plan. 36-year-old male came in for evaluation of abdominal pain and vomiting after eating pork last night, unremarkable labs/CT of the abdomen pelvis showed normal appendix, patient received IV hydration and PPI and anti emetic medication now feels better able to tolerate p.o. intake. Will discharge to follow-up with PCP. MDM - Abdominal Pain Lab Data Attestation: I reviewed the patient's lab results. Result diagrams: 03/11/22 05:00 03/11/22 05:00 Labs: Lab Results 03/11/22 03/11/22 Range/Units 05:00 05:00 WBC 15.9 H (4.8-10.8) X10*3/uL RBC 6.14 H (4.60-5.80) X10*6/uL Hgb 13.9 L (14.0-18.0) g/dl Hct 44.7 (42.0-52.0) % MCV 72.8 L (80.0-98.0) fL MCH 22.6 L (27.0-33.0) pg MCHC 31.1 (31.0-36.0) g/dl RDW 13.9 (11.0-16.0) % Plt Count 244 (160-400) X10*3/uL MPV 11.5 (9.4-12.4) fL Immature Gran % (Auto) 0.4 (0.0-0.4) % Neut % (Auto) 83.6 H (45-73) % Lymph % (Auto) 11.1 L (20-40) % [place]aufman % (Auto) 4.4 (2-11) % Eos % (Auto) 0.2 (0-4) % Baso % (Auto) 0.3 (0-2) % Lymph # (Auto) 1.8 (1.2-4.9) X10*3/uL [place] # (Auto) 0.7 (0.1-1.2) X10*3/uL Eos # (Auto) 0.0 (0.0-0.4) X10*3/uL Baso # (Auto) 0.1 (0.0-0.2) X10*3/uL Abs Immat Gran (auto) 0.06 H (0.00-0.03) X10*3/uL Absolute Neuts (auto) 13.3 H (2.0-8.3) x10*3/uL Absolute Nucleated RBC 0.000 (0.0-0.012) X10*3/uL Nucleated RBC % (auto) 0.0 (0.0-0.2) /100WBC Sodium 139 (135-145) mmol/L Potassium 4.3 (3.3-5.1) mmol/L Chloride 102 (96-108) mmol/L Carbon Dioxide 20 L (22-29) mmol/L Anion Gap 21 H (12-20) BUN 11 (9-16) mg/dL Creatinine 0.84 (0.5-1.4) mg/dL Estim Creat Clear Calc 141.4 Estimated GFR > 60 Random Glucose 202 H D (60-115) mg/dL Calcium 10.1 (8.4-10.2) mg/dL Total Bilirubin 0.6 (0.0-1.0) mg/dL Direct Bilirubin < 0.2 (0.0-0.5) mg/dL AST 24 (5-37) U/L ALT 23 (0-40) U/L Alkaline Phosphatase 75 (39-117) U/L Total Protein 8.6 H (6.5-8.0) g/dL Albumin 4.8 (3.5-5.0) g/dL Lipase 9 (8-78) U/L Imaging Data CT abdomen pelvis: Attestation: I personally reviewed and interpreted this imaging study as follows: My impression: No acute intra-abdominal process seen. ?No evidence of urolithiasis or hydronephrosis. ?Mild attenuation liver without focal lesion. ?No major change compared to previous study 05/13/2015. ? Discharge Plan Discharge Clinical Impression: Gastritis Patient Disposition: Home, Self-Care Instructions: Gastritis (DC) Prescriptions: New omeprazole 40 mg capsule,delayed release(DR/EC) 40 mg PO DAILY Qty: 15 0RF ondansetron 4 mg tablet,disintegrating 4 mg PO BEDTIME PRN (Reason: nausea and vomiting) 4 Days Qty: 8 0RF No Action doxycycline monohydrate 100 mg capsule 100 mg PO BID Qty: 20 0RF cephalexin [Keflex] 500 mg capsule 500 mg PO QID Qty: 28 0RF ibuprofen 600 mg tablet 600 mg PO Q8H PRN (Reason: pain) Qty: 20 0RF penicillin V potassium 500 mg tablet 500 mg PO BID Qty: 20 0RF tramadol 50 mg tablet 50 mg PO BID PRN (Reason: pain) Qty: 5 0RF Rx Instructions: for 3 days hydrochlorothiazide 12.5 mg tablet 12.5 mg PO DAILY 14 Days Qty: 14 0RF ibuprofen 800 mg tablet 800 mg PO Q8H PRN (Reason: pain) Qty: 14 0RF acetaminophen [Tylenol Extra Strength] 500 mg tablet 1,000 mg PO QID PRN (Reason: fever or pain) Qty: 14 0RF amoxicillin-pot clavulanate [Augmentin] 875-125 mg tablet 1 tab PO BID 10 Days Qty: 20 0RF oxycodone 5 mg tablet 5 mg PO BID PRN (Reason: pain) Qty: 10 0RF Referrals: [facility] [Primary Care Provider] -
[2022-03-11 07:23] LABS: Alanine Aminotransferase 23 U/L (0-40); Albumin Level 4.8 g/dL (3.5-5.0); Alkaline Phosphatase 75 U/L (39-117); Aspartate Amino Transferase 24 U/L (5-37); Bilirubin Direct < 0.2 mg/dL (0.0-0.5); Bilirubin Total 0.6 mg/dL (0.0-1.0); Total Protein 8.6 g/dL (6.5-8.0)
[2022-03-11] MEDS: Magnesium Hydrox/Alum Hydrox 30 ML ORAL.SUSP PO (07:25)
[2022-03-11] MEDS: 0.9 % Sodium Chloride 1,000 ML 999 ML IV (07:25)
[2022-03-11] MEDS: Famotidine/PF 20 MG/2 ML VIAL IVPUSH (07:25)
[2022-03-11] MEDS: ondansetron HCL 4 MG/2 ML VIAL IVPUSH (07:25)
[2022-03-11 07:59] VITALS: BP 139/80; PULSE 89; RESP 14; O2SAT 99
[2022-03-11] MEDS: Morphine Sulfate 2 MG/ML CARTRIDGE IVPUSH (10:39)
[2022-03-11 12:36] VITALS: BP 167/97; PULSE 96; RESP 16; O2SAT 98
== END 2022-03-11 13:10 | disposition home or self-care (01) ==
PROVIDERS: Emergency Provider Emergency Medicine
DX: K29.70 Gastritis, unspecified, without bleeding (principal); R10.11 Right upper quadrant pain; F12.90 Cannabis use, unspecified, uncomplicated; Z79.899 Other long term (current) drug therapy
CPT/HCPCS: 36415; 74176; 80048; 80076; 83690; 85025; 96361; 96374; 96375; 99284; J2270; J2405

== ENCOUNTER 2022-12-06 03:41 | Emergency (ER) | payer MEDICAID, SELFPAY ==
--- NOTE | ~2022-12-06 | CT_ITS ---
EXAMINATION: CT ABDOMEN AND PELVIS WITHOUT CONTRAST CLINICAL INFORMATION: Abdominal pain, nausea and vomiting. Evaluate for appendicitis. COMPARISON: 03/11/2022 TECHNIQUE: Multidetector volumetric imaging was performed from the superior aspect of the liver through the pubic symphysis. Sagittal and coronal reformatted images were obtained on the technologist's workstation. This CT examination was performed using dose optimization techniques as appropriate, variously including the following: *Automated exposure control *Adjustment of mA and/or kV according to patient size (this includes techniques or standardized protocols for targeted exams where dose is matched to indication/reason for exam; i.e. extremities or head) *Use of iterative reconstruction technique DLP: 1138 mGy-cm FINDINGS: LUNG BASES: The visualized lung bases are unremarkable. LIVER, GALLBLADDER, AND BILIARY TREE: The liver is normal in size, shape, and attenuation. No focal hepatic lesion or biliary ductal dilatation is present. Gallbladder unremarkable. PANCREAS: Unremarkable. SPLEEN: Unremarkable. ADRENAL GLANDS: Unremarkable. KIDNEYS AND URETERS: The kidneys are normal in size, shape, and attenuation. No hydronephrosis or hydroureter. There are one or 2 punctate nonobstructing calculi in the right kidney.. No perinephric stranding. BLADDER: Unremarkable. GASTROINTESTINAL TRACT: Small sliding-type hiatal hernia. Stomach otherwise unremarkable. The small and large bowel are unremarkable. Normal appendix. ABDOMINAL WALL: No significant hernia is appreciated. LYMPH NODES: Normal. VASCULAR: Unremarkable. PELVIC VISCERA: Unremarkable. OSSEOUS STRUCTURES: Unremarkable. CT/CT abdomen pelvis wo IV con IMPRESSION: * No acute findings within the abdomen or pelvis to explain the patient's symptomatology. * Normal appendix. * There are 1 or 2 punctate nonobstructing calculi in the right kidney.
[2022-12-06 03:47] VITALS: BP 158/102; PULSE 90; RESP 22; TEMP 36.4; O2SAT 100; BMI 28.5
[2022-12-06 04:13] LABS: Basophils Absolute Auto 0.1 X10*3/uL (0.0-0.2); Basophils Percent Auto 0.4 % (0-2); Eosinophils Absolute Auto 0.2 X10*3/uL (0.0-0.4); Eosinophils Percent Auto 0.9 % (0-4); Hematocrit 42.3 % (42.0-52.0); Hemoglobin 13.3 g/dl (14.0-18.0); Imm Gran Abs Auto 0.05 X10*3/uL (0.00-0.03); Imm Gran Pct Auto 0.3 % (0.0-0.4); Lymphocytes Absolute Auto 2.9 X10*3/uL (1.2-4.9); Lymphocytes Percent Auto 18.3 % (20-40); MANUAL DIFF FLAG NO; Mean Corpuscular HGB Conc 31.4 g/dl (31.0-36.0); Mean Corpuscular Hemoglobin 22.7 pg (27.0-33.0); Mean Corpuscular Volume 72.3 fL (80.0-98.0); Mean Platelet Volume 11.1 fL (9.4-12.4); Monocytes Absolute Auto 0.9 X10*3/uL (0.1-1.2); Monocytes Percent Auto 5.5 % (2-11); Neutrophils Absolute Auto 11.9 x10*3/uL (2.0-8.3); Neutrophils Percent Auto 74.6 % (45-73); Platelet Count 237 X10*3/uL (160-400); Red Blood Count 5.85 X10*6/uL (4.60-5.80); Red Cell Distribution Width 13.2 % (11.0-16.0)
--- NOTE | 2022-12-06 04:18 | ED.NAVMDI ---
HPI - Nausea/Vomiting/Diarrhea General Chief complaint: Nausea/Vomiting/Diarrhea Stated complaint: possible food poisoning Time Seen by Provider: 12/06/22 04:08 Source: patient Mode of arrival: ambulatory Limitations: no limitations History of Present Illness HPI Narrative: 37-year-old male came in for evaluation of abdominal pain, nausea, vomiting no diarrhea symptoms started about 6 hours ago, patient stated that he eat steak that he undercooked then the symptoms started about 1 hours later, pain was associated with nausea and multiple vomiting 4-5 times. No sick contacts, no recent travel, no recent use of antibiotic nobody else sick at home. Related Data Previous Rx's Medication Instructions Recorded cephalexin 500 mg capsule (Keflex) 500 mg PO QID #28 caps 12/17/20 doxycycline monohydrate 100 mg 100 mg PO BID #20 caps 12/17/20 capsule ibuprofen 600 mg tablet 600 mg PO Q8H PRN pain #20 tabs 02/24/21 penicillin V potassium 500 mg 500 mg PO BID #20 tabs 02/24/21 tablet tramadol 50 mg tablet 50 mg PO BID PRN pain #5 tabs 02/24/21 hydrochlorothiazide 12.5 mg tablet 12.5 mg PO DAILY 14 days #14 tabs 04/19/21 acetaminophen 500 mg tablet 1,000 mg PO QID PRN fever or pain 05/29/21 (Tylenol Extra Strength) #14 tabs amoxicillin 875 mg-potassium 1 tab PO BID 10 days #20 tabs 05/29/21 clavulanate 125 mg tablet (Augmentin) ibuprofen 800 mg tablet 800 mg PO Q8H PRN pain #14 tabs 05/29/21 oxycodone 5 mg tablet 5 mg PO BID PRN pain #10 tabs 05/29/21 omeprazole 40 mg capsule,delayed 40 mg PO DAILY #15 caps 03/11/22 release ondansetron 4 mg disintegrating 4 mg PO BEDTIME PRN nausea and 03/11/22 tablet vomiting 4 days #8 tabs Allergies Allergy/AdvReac Type Severity Reaction Status Date / Time No Known Allergies Allergy Verified 12/06/22 03:51 Review of Systems Review of Systems: All other systems are reviewed and are negative Constitutional: Reports as per HPI and Reports no additional constitutional complaints Eyes: Reports as per HPI and Reports no additional eye complaints Reports system reviewed and no additional complaints, except as documented Cardiovascular: Reports as per HPI and Reports no additional cardiovascular complaints Respiratory: Reports as per HPI and Reports no additional respiratory complaints Gastrointestinal: Reports as per HPI and Reports no additional gastrointestinal complaints Genitourinary: Reports no additional female genitourinary complaints Musculoskeletal: Reports no additional musculoskeletal complaints Skin/Breast: Reports system reviewed and no additional complaints, except as docu Psychiatric: Reports no additional psychiatric complaints Endocrine: Reports no additional endocrine complaints Hematologic/Lymphatic: Reports no additional hematologic/lymphatic complaints Allergic/Immunologic: Reports no additional allergic/immunologic complaints Reports system reviewed and no additional complaints, except as documented and Reports Abnormal speech present [facility] Past Medical History Medical History Diabetes Social History Social History Alcohol intake: never Substance Use Type: Marijuana Advance Directives: No Advance Directives Information Provided: Yes Physical Exam Vital Signs: Vital Signs: Last Vital Signs Temp 97.6 F 12/06/22 03:47 Pulse 90 12/06/22 03:47 Resp 22 H 12/06/22 03:47 BP 158/102 H 12/06/22 03:47 Pulse Ox 100 12/06/22 03:47 O2 Del Method 12/06/22 03:47 BMI result Body Mass Index 28.5 Vital signs have been reviewed as appeared to be correct. Blood pressure normal. Heart rate normal. Respiration rate normal. Temperature normal. Oxygen saturation normal. Appearance: Alert. Oriented X3. No acute distress. Head: Normal external exam. Normocephalic. Atraumatic. No Nava signs noted. No raccoon eyes noted Eyes: PERRLA. EOMI. Conjunctiva and sclera normal. Eyelids normal. ENT: TM's Normal. Pharynx normal. Uvula midline. Moist mucous membranes. No trismus noted. No drooling noted. No muffled voice noted. Neck: Normal inspection. Neck supple. FROM. No adenopathy. Thyroid Normal. No meningeal signs. No neck mass noted. CVS: Normal heart rate and rhythm. Heart sound normal. No murmurs noted. Pulses normal throughout. Respiratory: No respiratory distress. Painless inspiration. Breath sounds normal. No wheezes/rales/rhonchi noted. Chest nontender. No accessory muscle usage noted or decreased air movement noted. Abdomen: Soft, epigastric tenderness, no rebound tenderness, no guarding. Bowel sounds normal in all 4 quadrants. No distention noted. No organomegaly noted. No visible injury noted. Back: No CVA tenderness. Full range of motion noted. Skin: Skin warm and dry. Normal skin color. Normal skin turgor. No rashes/lesions/lacerations noted. Extremities: No lower extremity edema. Extremities exhibit normal range of motion. Extremities nontender. Neuro: Oriented X 3. Cranial nerve exam: II-XII are grossly intact No motor deficit. No sensory deficit. Reflexes normal. Course Course Course Narrative: 37-year-old male came in for abdominal pain with nausea and vomiting after eating undercooked steak home patient's symptoms is more than likely to be due to food poisoning, patient had a CT of the abdomen pelvis revealed a normal appendix. Leukocytosis secondary to vomiting and food poisoning. Patient's symptoms controlled well after Dilaudid and Zofran, able to tolerate p.o. intake with no nausea or vomiting or abdominal pain will discharge with his home. Medications Administered Discontinued Medications Generic Name Dose Route Start Last Admin Trade Name Freq PRN Reason Stop Dose Admin Al Hydroxide/Mg Hydroxide 30 ml 12/06/22 04:16 12/06/22 04:25 Magnesium Hydrox/Alum Hydrox 30 Ml Oral.Susp PO 12/06/22 04:17 30 ml ONCE ONE Administration Famotidine 20 mg 12/06/22 04:16 12/06/22 04:25 Famotidine/Pf 20 Mg/2 Ml Vial IVPUSH 12/06/22 04:17 20 mg ONCE ONE Administration Hydromorphone HCl 2 mg 12/06/22 05:01 12/06/22 05:10 Hydromorphone Hcl 2 Mg/Ml Vial IVPUSH 12/06/22 05:02 2 mg ONCE ONE Administration Protocol Sodium Chloride 1,000 mls @ 999 mls/hr 12/06/22 04:16 12/06/22 04:25 Ns IV 12/06/22 05:16 999 mls/hr .Q1H1M ONE Administration Ondansetron HCl 4 mg 12/06/22 04:16 12/06/22 04:25 Ondansetron Hcl 4 Mg/2 Ml Vial IVPUSH 12/06/22 04:17 4 mg ONCE ONE Administration Medical Decision Making Differential Diagnosis Differential Diagnoses: The differential diagnosis associated with the presentation includes (Food poisoning, gastroenteritis, kidney stone, acute appendicitis, colitis.) Lab Data MDM Lab Attestation statement: I reviewed the patient's lab results. 12/06/22 04:10 12/06/22 04:10 Labs: Lab Results 12/06/22 12/06/22 12/06/22 Range/Units 04:08 04:10 04:10 WBC 16.0 H (4.8-10.8) X10*3/uL RBC 5.85 H (4.60-5.80) X10*6/uL Hgb 13.3 L (14.0-18.0) g/dl Hct 42.3 (42.0-52.0) % MCV 72.3 L (80.0-98.0) fL MCH 22.7 L (27.0-33.0) pg MCHC 31.4 (31.0-36.0) g/dl RDW 13.2 (11.0-16.0) % Plt Count 237 (160-400) X10*3/uL MPV 11.1 (9.4-12.4) fL Immature Gran % (Auto) 0.3 (0.0-0.4) % Neut % (Auto) 74.6 H (45-73) % Lymph % (Auto) 18.3 L (20-40) % [place] % (Auto) 5.5 (2-11) % Eos % (Auto) 0.9 (0-4) % Baso % (Auto) 0.4 (0-2) % Lymph # (Auto) 2.9 (1.2-4.9) X10*3/uL [place] # (Auto) 0.9 (0.1-1.2) X10*3/uL Eos # (Auto) 0.2 (0.0-0.4) X10*3/uL Baso # (Auto) 0.1 (0.0-0.2) X10*3/uL Abs Immat Gran (auto) 0.05 H (0.00-0.03) X10*3/uL Absolute Neuts (auto) 11.9 H (2.0-8.3) x10*3/uL Absolute Nucleated RBC 0.000 (0.0-0.012) X10*3/uL Nucleated RBC % (auto) 0.0 (0.0-0.2) /100WBC Sodium 139 (135-145) mmol/L Potassium 3.4 D (3.3-5.1) mmol/L Chloride 104 (96-108) mmol/L Carbon Dioxide 25 (22-29) mmol/L Anion Gap 13 (12-20) BUN 9 (9-16) mg/dL Creatinine 0.87 (0.5-1.4) mg/dL Estim Creat Clear Calc 140.5 Estimated GFR > 60 Random Glucose 220 H (60-115) mg/dL Calcium 9.5 (8.4-10.2) mg/dL Total Bilirubin 0.3 (0.0-1.0) mg/dL Direct Bilirubin < 0.2 (0.0-0.5) mg/dL AST 14 (5-37) U/L ALT 15 (0-40) U/L Alkaline Phosphatase 86 (39-117) U/L Total Protein 7.3 (6.5-8.0) g/dL Albumin 4.4 (3.5-5.0) g/dL Lipase 42 (8-78) U/L Influenza Type A (PCR) NEGATIVE (Negative) Influenza Type B (PCR) NEGATIVE (Negative) RSV RNA Qual (PCR) NEGATIVE (Negative) SARS-CoV-2 RNA (RT-PCR) NEGATIVE (Negative) Independent Interpretation I performed an independent interpretation of an: CT Scan (Abdomen pelvis: No acute pathology.) Radiology Impression Discussion of test interpretation with radiology: I have reviewed the radiologist's reading. Discharge Plan Discharge Clinical Impression: Food poisoning Patient Disposition: Home, Self-Care Instructions: Food Poisoning (ED) Prescriptions: No Action doxycycline monohydrate 100 mg capsule 100 mg PO BID Qty: 20 0RF cephalexin [Keflex] 500 mg capsule 500 mg PO QID Qty: 28 0RF ibuprofen 600 mg tablet 600 mg PO Q8H PRN (Reason: pain) Qty: 20 0RF penicillin V potassium 500 mg tablet 500 mg PO BID Qty: 20 0RF tramadol 50 mg tablet 50 mg PO BID PRN (Reason: pain) Qty: 5 0RF Rx Instructions: for 3 days hydrochlorothiazide 12.5 mg tablet 12.5 mg PO DAILY 14 Days Qty: 14 0RF ibuprofen 800 mg tablet 800 mg PO Q8H PRN (Reason: pain) Qty: 14 0RF acetaminophen [Tylenol Extra Strength] 500 mg tablet 1,000 mg PO QID PRN (Reason: fever or pain) Qty: 14 0RF amoxicillin-pot clavulanate [Augmentin] 875-125 mg tablet 1 tab PO BID 10 Days Qty: 20 0RF oxycodone 5 mg tablet 5 mg PO BID PRN (Reason: pain) Qty: 10 0RF omeprazole 40 mg capsule,delayed release(DR/EC) 40 mg PO DAILY Qty: 15 0RF ondansetron 4 mg tablet,disintegrating 4 mg PO BEDTIME PRN (Reason: nausea and vomiting) 4 Days Qty: 8 0RF Referrals: Physician,Unknown J [Primary Care Provider] - Stand Alone Forms: Work/School Release
[2022-12-06] MEDS: ondansetron HCL 4 MG/2 ML VIAL IVPUSH (04:25)
[2022-12-06] MEDS: Famotidine/PF 20 MG/2 ML VIAL IVPUSH (04:25)
[2022-12-06] MEDS: 0.9 % Sodium Chloride 1,000 ML 999 ML IV (04:25)
[2022-12-06] MEDS: Magnesium Hydrox/Alum Hydrox 30 ML ORAL.SUSP PO (04:25)
[2022-12-06 04:33] LABS: Alanine Aminotransferase 15 U/L (0-40); Albumin Level 4.4 g/dL (3.5-5.0); Alkaline Phosphatase 86 U/L (39-117); Anion Gap 13 (12-20); Aspartate Amino Transferase 14 U/L (5-37); Bilirubin Direct < 0.2 mg/dL (0.0-0.5); Bilirubin Total 0.3 mg/dL (0.0-1.0); Blood Urea Nitrogen 9 mg/dL (9-16); Calcium 9.5 mg/dL (8.4-10.2); Carbon Dioxide 25 mmol/L (22-29); Chloride 104 mmol/L (96-108); Creatinine Clr Calc Pharmacy 140.5; Estimated Glomerular Filt Rate > 60; Glucose Random 220 mg/dL (60-115); Lipase 42 U/L (8-78); Potassium 3.4 mmol/L (3.3-5.1); Sodium 139 mmol/L (135-145); Total Protein 7.3 g/dL (6.5-8.0)
--- NOTE | 2022-12-06 04:33 | PC.NURSE ---
pt medicated according to mar at this time. pt provided with warm blanket. pt awaiting to be taken for CT
[2022-12-06 04:52] LABS: Influenza A PCR NEGATIVE (Negative); Influenza B PCR NEGATIVE (Negative); Resp Syncy Virus RNA Qual PCR NEGATIVE (Negative); SARS COV2 PCR INHOUSE NEGATIVE (Negative)
[2022-12-06] MEDS: HYDROmorphone HCl 2 MG/ML VIAL IVPUSH (05:10)
--- NOTE | 2022-12-06 05:13 | PC.NURSE ---
pt reports to this rn 09/[address] mcdaniel. orders placed. this rn medicated pt according to mar
[2022-12-06 06:16] VITALS: BP 143/94; PULSE 93; RESP 18; TEMP 36.8; O2SAT 98
--- NOTE | 2022-12-06 06:48 | PC.NURSE ---
iv removed at time of discharge. pt reports 0/10 pain at this time. discharge packet and work note provided to pt. pt verbalized understanding of dsicharge plan
== END 2022-12-06 06:49 | disposition home or self-care (01) ==
PROVIDERS: Emergency Provider Emergency Medicine
DX: A05.9 Bacterial foodborne intoxication, unspecified (principal); Z20.822 Contact with and (suspected) exposure to COVID-19; Z20.828 Contact with and (suspected) exposure to other viral communicable diseases; E11.9 Type 2 diabetes mellitus without complications; F12.90 Cannabis use, unspecified, uncomplicated; Z79.899 Other long term (current) drug therapy
CPT/HCPCS: 0241U; 36415; 74176; 80048; 80076; 83690; 85025; 96361; 96374; 96375; 99284; J1170; J2405

== ENCOUNTER 2023-01-05 19:52 | Emergency (ER) | payer MEDICAID, SELFPAY ==
[2023-01-05 19:54] VITALS: BP 180/90; PULSE 96; O2SAT 100
--- NOTE | 2023-01-05 20:13 | ED_ITS ---
HPI - General Adult General Chief complaint: General Medical <Teodora Mcallister NP - Last Filed: 01/05/23 20:17> Stated complaint: Hypertensive <Teodora Mcallister NP - Last Filed: 01/05/23 20:17> Time Seen by Provider: 01/05/23 22:44 <Teodora Mcallister NP - Last Filed: 01/05/23 20:17> Source: patient <Shayne Quiñonez MD - Last Filed: 01/05/23 23:22> Mode of arrival: ambulatory <Shayne Quiñonez MD - Last Filed: 01/05/23 23:22> Limitations: no limitations <Shayne Quiñonez MD - Last Filed: 01/05/23 23:22> History of Present Illness HPI narrative: Patient history of hypertension was given prescription 6 months ago never followed with PCP never took the medication after that today at work under stress patient check the blood pressure was 181/105 on arrival it was 166/102 repeat blood pressure 165/95. Patient denied any other symptoms no nausea no headache no chest pain or palpitation no shortness of breath not on NSAIDs <Shayne Quiñonez MD - Last Filed: 01/05/23 23:22> Related Data Home medications: Previous Rx's Medication Instructions Recorded cephalexin 500 mg capsule (Keflex) 500 mg PO QID #28 caps 12/17/20 doxycycline monohydrate 100 mg 100 mg PO BID #20 caps 12/17/20 capsule ibuprofen 600 mg tablet 600 mg PO Q8H PRN pain #20 tabs 02/24/21 penicillin V potassium 500 mg 500 mg PO BID #20 tabs 02/24/21 tablet tramadol 50 mg tablet 50 mg PO BID PRN pain #5 tabs 02/24/21 hydrochlorothiazide 12.5 mg tablet 12.5 mg PO DAILY 14 days #14 tabs 04/19/21 acetaminophen 500 mg tablet 1,000 mg PO QID PRN fever or pain 05/29/21 (Tylenol Extra Strength) #14 tabs amoxicillin 875 mg-potassium 1 tab PO BID 10 days #20 tabs 05/29/21 clavulanate 125 mg tablet (Augmentin) ibuprofen 800 mg tablet 800 mg PO Q8H PRN pain #14 tabs 05/29/21 oxycodone 5 mg tablet 5 mg PO BID PRN pain #10 tabs 05/29/21 omeprazole 40 mg capsule,delayed 40 mg PO DAILY #15 caps 03/11/22 release ondansetron 4 mg disintegrating 4 mg PO BEDTIME PRN nausea and 03/11/22 tablet vomiting 4 days #8 tabs lisinopril 10 mg tablet 10 mg PO DAILY #90 tabs 01/05/23 <Teodora Mcallister NP - Last Filed: 01/05/23 20:17> Allergies/adverse reactions: Allergies Allergy/AdvReac Type Severity Reaction Status Date / Time No Known Allergies Allergy Verified 01/05/23 20:16 <Teodora Mcallister NP - Last Filed: 01/05/23 20:17> Review of Systems Review of Systems: Yes all other systems are reviewed and are negative <Shayne Quiñonez MD - Last Filed: 01/05/23 23:22> PMFSH Past Medical History Medical History: Medical History Diabetes <Teodora Mcallister NP - Last Filed: 01/05/23 20:17> Social History Social History: Social History Alcohol intake: never Substance Use Type: Marijuana Advance Directives: No Advance Directives Information Provided: No <Teodora Mcallister NP - Last Filed: 01/05/23 20:17> Physical Exam ED Vital Signs: Vital Signs - 24 hr 01/05/23 20:14 Temperature 98.2 F Pulse Rate 82 Respiratory Rate 20 Blood Pressure 165/95 H Pulse Oximetry 97 Oxygen Delivery Method Room Air BMI result Body Mass Index 28.5 <Teodora Mcallister NP - Last Filed: 01/05/23 20:17> Vital Signs - 24 hr 01/05/23 20:14 Temperature 98.2 F Pulse Rate 82 Respiratory Rate 20 Blood Pressure 165/95 H Pulse Oximetry 97 Oxygen Delivery Method Room Air BMI result Body Mass Index 28.5 <Shayne Quiñonez MD - Last Filed: 01/05/23 23:22> Appearance: Alert. Oriented X3. No acute distress. Eyes: No pallor or icterus ENT: Pharynx normal. Oral Mucosa moist Neck: Normal inspection. Neck supple. CVS: Normal heart rate and rhythm. Pulses normal. Respiratory: No respiratory distress. Equal air entry bilateral, no wheezing/rales/rhonchi Abdomen: Soft and nontender. Bowel sounds are present, no mass palpable, no CVA tenderness Skin: Skin warm and dry. Normal skin color. Normal skin turgor. Extremities: No lower extremity edema. No calf tenderness Neuro: Oriented X 3. No motor deficit. <Shayne Quiñonez MD - Last Filed: 01/05/23 23:22> Course Course Course Narrative: This is a rapid medical exam. Deferred additional HPI, ROS, PE to primary provider. 37 yo with past medical history of DM, HTN here with complaints of high blood pressure at home, feeling dizzy when blood pressure is elevated. Patient has not taken his blood pressure and diabetes medication for many months. He does have a primary care. States he stopped taking the medication because he was feeling good. Will check labs, EKG. Mild hypertension in triage. Otherwise vitals stable <Teodroa Mcallister NP - Last Filed: 01/05/23 20:17> Medical Decision Making Medical Decision Making [facility] [place] Narrative: Patient with asymptomatic hypertension will start patient on lisinopril 10 mg daily advised to follow with PCP <Shayne Quiñonez MD - Last Filed: 01/05/23 23:22> Lab Data [facility] [place] Lab Attestation statement: I reviewed the patient's lab results. <Shayne Quiñonez MD - Last Filed: 01/05/23 23:22> Result Diagrams: 01/05/23 20:50 01/05/23 20:50 <Teodora Mcallister NP - Last Filed: 01/05/23 20:17> Labs: Lab Results 01/05/23 01/05/23 01/05/23 Range/Units 20:36 20:50 20:50 WBC 7.5 (4.8-10.8) X10*3/uL RBC 5.75 (4.60-5.80) X10*6/uL Hgb 13.2 L (14.0-18.0) g/dl Hct 41.7 L (42.0-52.0) % MCV 72.5 L (80.0-98.0) fL MCH 23.0 L (27.0-33.0) pg MCHC 31.7 (31.0-36.0) g/dl RDW 13.4 (11.0-16.0) % Plt Count 185 (160-400) X10*3/uL MPV 11.1 (9.4-12.4) fL Immature Gran % (Auto) 0.3 (0.0-0.4) % Neut % (Auto) 72.2 (45-73) % Lymph % (Auto) 17.2 L (20-40) % [place] % (Auto) 9.1 (2-11) % Eos % (Auto) 0.9 (0-4) % Baso % (Auto) 0.3 (0-2) % Lymph # (Auto) 1.3 (1.2-4.9) X10*3/uL [place] # (Auto) 0.7 (0.1-1.2) X10*3/uL Eos # (Auto) 0.1 (0.0-0.4) X10*3/uL Baso # (Auto) 0.0 (0.0-0.2) X10*3/uL Abs Immat Gran (auto) 0.02 (0.00-0.03) X10*3/uL Absolute Neuts (auto) 5.4 (2.0-8.3) x10*3/uL Absolute Nucleated RBC 0.000 (0.0-0.012) X10*3/uL Nucleated RBC % (auto) 0.0 (0.0-0.2) /100WBC Sodium 140 (135-145) mmol/L Potassium 3.4 (3.3-5.1) mmol/L Chloride 107 (96-108) mmol/L Carbon Dioxide 21 L (22-29) mmol/L Anion Gap 15 (12-20) BUN 9 (9-16) mg/dL Creatinine 0.76 (0.5-1.4) mg/dL Estim Creat Clear Calc 160.9 Estimated GFR > 60 POC Glucose 122 H (60-115) mg/dL Random Glucose 129 H (60-115) mg/dL Calcium 9.0 (8.4-10.2) mg/dL Total Bilirubin 0.4 (0.0-1.0) mg/dL Direct Bilirubin < 0.2 (0.0-0.5) mg/dL AST 14 (5-37) U/L ALT 15 (0-40) U/L Alkaline Phosphatase 83 (39-117) U/L Troponin I High Sens (<3.5-35.0) ng/L Total Protein 7.2 (6.5-8.0) g/dL Albumin 4.3 (3.5-5.0) g/dL 01/05/23 Range/Units 20:50 WBC (4.8-10.8) X10*3/uL RBC (4.60-5.80) X10*6/uL Hgb (14.0-18.0) g/dl Hct (42.0-52.0) % MCV (80.0-98.0) fL MCH (27.0-33.0) pg MCHC (31.0-36.0) g/dl RDW (11.0-16.0) % Plt Count (160-400) X10*3/uL MPV (9.4-12.4) fL Immature Gran % (Auto) (0.0-0.4) % Neut % (Auto) (45-73) % Lymph % (Auto) (20-40) % [place] % (Auto) (2-11) % Eos % (Auto) (0-4) % Baso % (Auto) (0-2) % Lymph # (Auto) (1.2-4.9) X10*3/uL [place] # (Auto) (0.1-1.2) X10*3/uL Eos # (Auto) (0.0-0.4) X10*3/uL Baso # (Auto) (0.0-0.2) X10*3/uL Abs Immat Gran (auto) (0.00-0.03) X10*3/uL Absolute Neuts (auto) (2.0-8.3) x10*3/uL Absolute Nucleated RBC (0.0-0.012) X10*3/uL Nucleated RBC % (auto) (0.0-0.2) /100WBC Sodium (135-145) mmol/L Potassium (3.3-5.1) mmol/L Chloride (96-108) mmol/L Carbon Dioxide (22-29) mmol/L Anion Gap (12-20) BUN (9-16) mg/dL Creatinine (0.5-1.4) mg/dL Estim Creat Clear Calc Estimated GFR POC Glucose (60-115) mg/dL Random Glucose (60-115) mg/dL Calcium (8.4-10.2) mg/dL Total Bilirubin (0.0-1.0) mg/dL Direct Bilirubin (0.0-0.5) mg/dL AST (5-37) U/L ALT (0-40) U/L Alkaline Phosphatase (39-117) U/L Troponin I High Sens < 3.5 (<3.5-35.0) ng/L Total Protein (6.5-8.0) g/dL Albumin (3.5-5.0) g/dL <Teodora Mcallister, SHELTER DIRECTOR - Last Filed: 01/05/23 20:17> Lab Results 01/05/23 01/05/23 01/05/23 Range/Units 20:36 20:50 20:50 WBC 7.5 (4.8-10.8) X10*3/uL RBC 5.75 (4.60-5.80) X10*6/uL Hgb 13.2 L (14.0-18.0) g/dl Hct 41.7 L (42.0-52.0) % MCV 72.5 L (80.0-98.0) fL MCH 23.0 L (27.0-33.0) pg MCHC 31.7 (31.0-36.0) g/dl RDW 13.4 (11.0-16.0) % Plt Count 185 (160-400) X10*3/uL MPV 11.1 (9.4-12.4) fL Immature Gran % (Auto) 0.3 (0.0-0.4) % Neut % (Auto) 72.2 (45-73) % Lymph % (Auto) 17.2 L (20-40) % [place] % (Auto) 9.1 (2-11) % Eos % (Auto) 0.9 (0-4) % Baso % (Auto) 0.3 (0-2) % Lymph # (Auto) 1.3 (1.2-4.9) X10*3/uL [place] # (Auto) 0.7 (0.1-1.2) X10*3/uL Eos # (Auto) 0.1 (0.0-0.4) X10*3/uL Baso # (Auto) 0.0 (0.0-0.2) X10*3/uL Abs Immat Gran (auto) 0.02 (0.00-0.03) X10*3/uL Absolute Neuts (auto) 5.4 (2.0-8.3) x10*3/uL Absolute Nucleated RBC 0.000 (0.0-0.012) X10*3/uL Nucleated RBC % (auto) 0.0 (0.0-0.2) /100WBC Sodium 140 (135-145) mmol/L Potassium 3.4 (3.3-5.1) mmol/L Chloride 107 (96-108) mmol/L Carbon Dioxide 21 L (22-29) mmol/L Anion Gap 15 (12-20) BUN 9 (9-16) mg/dL Creatinine 0.76 (0.5-1.4) mg/dL Estim Creat Clear Calc 160.9 Estimated GFR > 60 POC Glucose 122 H (60-115) mg/dL Random Glucose 129 H (60-115) mg/dL Calcium 9.0 (8.4-10.2) mg/dL Total Bilirubin 0.4 (0.0-1.0) mg/dL Direct Bilirubin < 0.2 (0.0-0.5) mg/dL AST 14 (5-37) U/L ALT 15 (0-40) U/L Alkaline Phosphatase 83 (39-117) U/L Troponin I High Sens (<3.5-35.0) ng/L Total Protein 7.2 (6.5-8.0) g/dL Albumin 4.3 (3.5-5.0) g/dL 01/05/23 Range/Units 20:50 WBC (4.8-10.8) X10*3/uL RBC (4.60-5.80) X10*6/uL Hgb (14.0-18.0) g/dl Hct (42.0-52.0) % MCV (80.0-98.0) fL MCH (27.0-33.0) pg MCHC (31.0-36.0) g/dl RDW (11.0-16.0) % Plt Count (160-400) X10*3/uL MPV (9.4-12.4) fL Immature Gran % (Auto) (0.0-0.4) % Neut % (Auto) (45-73) % Lymph % (Auto) (20-40) % [place] % (Auto) (2-11) % Eos % (Auto) (0-4) % Baso % (Auto) (0-2) % Lymph # (Auto) (1.2-4.9) X10*3/uL [place] # (Auto) (0.1-1.2) X10*3/uL Eos # (Auto) (0.0-0.4) X10*3/uL Baso # (Auto) (0.0-0.2) X10*3/uL Abs Immat Gran (auto) (0.00-0.03) X10*3/uL Absolute Neuts (auto) (2.0-8.3) x10*3/uL Absolute Nucleated RBC (0.0-0.012) X10*3/uL Nucleated RBC % (auto) (0.0-0.2) /100WBC Sodium (135-145) mmol/L Potassium (3.3-5.1) mmol/L Chloride (96-108) mmol/L Carbon Dioxide (22-29) mmol/L Anion Gap (12-20) BUN (9-16) mg/dL Creatinine (0.5-1.4) mg/dL Estim Creat Clear Calc Estimated GFR POC Glucose (60-115) mg/dL Random Glucose (60-115) mg/dL Calcium (8.4-10.2) mg/dL Total Bilirubin (0.0-1.0) mg/dL Direct Bilirubin (0.0-0.5) mg/dL AST (5-37) U/L ALT (0-40) U/L Alkaline Phosphatase (39-117) U/L Troponin I High Sens < 3.5 (<3.5-35.0) ng/L Total Protein (6.5-8.0) g/dL Albumin (3.5-5.0) g/dL <Shayne Quiñonez MD - Last Filed: 01/05/23 23:22> Independent Interpretation I performed an independent interpretation of an: EKG <Shayne Quiñonez MD - Last Filed: 01/05/23 23:22> Interpretation: Normal sinus rhythm heart rate 72 beats per minute poor progression of R- waves in anterior leads similar that in the past, nonspecific ST T wave changes no acute ischemia <Shayne Quiñonez MD - Last Filed: 01/05/23 23:22> Discharge Plan Discharge Clinical Impression: Benign essential HTN <Teodora Mcallister NP - Last Filed: 01/05/23 20:17> Patient Disposition: Home, Self-Care <Teodora Mcallister NP - Last Filed: 01/05/23 20:17> Instructions: Hypertension (ED) <Teodora Mcallister NP - Last Filed: 01/05/23 20:17> Additional Instructions: Decreased salt intake Start taking the blood pressure medication as prescribed daily Check blood pressure in the morning before you take the medicine and before going to bed it should be less than 135/85 <Teodora Mcallister NP - Last Filed: 01/05/23 20:17> Prescriptions: New lisinopril 10 mg tablet 10 mg PO DAILY Qty: 90 1RF No Action doxycycline monohydrate 100 mg capsule 100 mg PO BID Qty: 20 0RF cephalexin [Keflex] 500 mg capsule 500 mg PO QID Qty: 28 0RF ibuprofen 600 mg tablet 600 mg PO Q8H PRN (Reason: pain) Qty: 20 0RF penicillin V potassium 500 mg tablet 500 mg PO BID Qty: 20 0RF tramadol 50 mg tablet 50 mg PO BID PRN (Reason: pain) Qty: 5 0RF Rx Instructions: for 3 days hydrochlorothiazide 12.5 mg tablet 12.5 mg PO DAILY 14 Days Qty: 14 0RF ibuprofen 800 mg tablet 800 mg PO Q8H PRN (Reason: pain) Qty: 14 0RF acetaminophen [Tylenol Extra Strength] 500 mg tablet 1,000 mg PO QID PRN (Reason: fever or pain) Qty: 14 0RF amoxicillin-pot clavulanate [Augmentin] 875-125 mg tablet 1 tab PO BID 10 Days Qty: 20 0RF oxycodone 5 mg tablet 5 mg PO BID PRN (Reason: pain) Qty: 10 0RF omeprazole 40 mg capsule,delayed release(DR/EC) 40 mg PO DAILY Qty: 15 0RF ondansetron 4 mg tablet,disintegrating 4 mg PO BEDTIME PRN (Reason: nausea and vomiting) 4 Days Qty: 8 0RF <Teodora Mcallister SHELTER DIRECTOR - Last Filed: 01/05/23 20:17>
[2023-01-05 20:14] VITALS: BP 165/95; PULSE 82; RESP 20; TEMP 36.8; O2SAT 97; BMI 28.5
--- NOTE | 2023-01-05 20:16 | ECG_ITS ---
Test Reason : CHEST PAIN Blood Pressure : / mmHG Vent. Rate : 077 BPM Atrial Rate : 077 BPM P-R Int : 174 ms QRS Dur : 066 ms QT Int : 332 ms P-R-T Axes : 066 -04 -30 degrees QTc Int : 375 ms Normal sinus rhythm Possible Anterior infarct , age undetermined Abnormal ECG When compared to the previous EKG of Poor R wave progression is now Present Referred By: Teodora Mcallister Electronically Signed By:BEL VANG MD
[2023-01-05 20:44] LABS: Glucose, Whole Blood 122 mg/dL (60-115)
[2023-01-05 20:44] LABS: MANUAL DIFF FLAG NO
[2023-01-05 20:46] LABS: Basophils Percent Auto 0.3 % (0-2); Eosinophils Absolute Auto 0.1 X10*3/uL (0.0-0.4); Eosinophils Percent Auto 0.9 % (0-4); Hematocrit 41.7 % (42.0-52.0); Hemoglobin 13.2 g/dl (14.0-18.0); Imm Gran Abs Auto 0.02 X10*3/uL (0.00-0.03); Imm Gran Pct Auto 0.3 % (0.0-0.4); Lymphocytes Absolute Auto 1.3 X10*3/uL (1.2-4.9); Lymphocytes Percent Auto 17.2 % (20-40); Mean Corpuscular HGB Conc 31.7 g/dl (31.0-36.0); Mean Corpuscular Volume 72.5 fL (80.0-98.0); Mean Platelet Volume 11.1 fL (9.4-12.4); Monocytes Absolute Auto 0.7 X10*3/uL (0.1-1.2); Monocytes Percent Auto 9.1 % (2-11); Neutrophils Absolute Auto 5.4 x10*3/uL (2.0-8.3); Neutrophils Percent Auto 72.2 % (45-73); Platelet Count 185 X10*3/uL (160-400); Red Blood Count 5.75 X10*6/uL (4.60-5.80); Red Cell Distribution Width 13.4 % (11.0-16.0); White Blood Count 7.5 X10*3/uL (4.8-10.8)
[2023-01-05 22:35] LABS: Alanine Aminotransferase 15 U/L (0-40); Albumin Level 4.3 g/dL (3.5-5.0); Alkaline Phosphatase 83 U/L (39-117); Anion Gap 15 (12-20); Aspartate Amino Transferase 14 U/L (5-37); Bilirubin Direct < 0.2 mg/dL (0.0-0.5); Bilirubin Total 0.4 mg/dL (0.0-1.0); Blood Urea Nitrogen 9 mg/dL (9-16); Chloride 107 mmol/L (96-108); Creatinine Clr Calc Pharmacy 160.9; Estimated Glomerular Filt Rate > 60; Glucose Random 129 mg/dL (60-115); Potassium 3.4 mmol/L (3.3-5.1); Sodium 140 mmol/L (135-145); Total Protein 7.2 g/dL (6.5-8.0)
[2023-01-05 22:37] LABS: Carbon Dioxide 21 mmol/L (22-29)
[2023-01-05 22:43] LABS: Troponin-I High Sensitivity < 3.5 ng/L (<3.5-35.0)
[2023-01-05] MEDS: lisinopriL 10 MG TABLET PO (23:35)
== END 2023-01-05 23:38 | disposition home or self-care (01) ==
PROVIDERS: Nurse Practitioner Family; Emergency Provider Internal Medicine
DX: I10 Essential (primary) hypertension (principal); E11.9 Type 2 diabetes mellitus without complications; Z91.14 Patient's other noncompliance with medication regimen
CPT/HCPCS: 36415; 80048; 80076; 82947; 84484; 85025; 93005; 99283

== ENCOUNTER 2023-02-05 00:22 | Emergency (ER) | payer MEDICAID, SELFPAY ==
--- NOTE | 2023-02-05 | ECG_ITS ---
Test Reason : PALPATIONS Blood Pressure : / mmHG Vent. Rate : 073 BPM Atrial Rate : 073 BPM P-R Int : 166 ms QRS Dur : 084 ms QT Int : 374 ms P-R-T Axes : 071 015 024 degrees QTc Int : 412 ms Normal sinus rhythm Normal ECG When compared with ECG of 05-JAN-2023 20:27, No significant changes seen Referred By: Generic ED Physician Electronically Signed By:PRABHU QUIROGA
[2023-02-05 00:32] VITALS: BP 188/90; PULSE 88; O2SAT 98; BMI 27.1
--- NOTE | 2023-02-05 01:15 | ED.ARRPALP ---
HPI - Arrhythmia/Palpitations General Chief Complaint: Arrhythmia/Palpitations Stated Complaint: ANXIETY,S/P SMOKING MARIJUANA,HIGH BP 192/130 Time Seen by Provider: 02/05/23 01:09 Source: patient Mode of arrival: ambulatory Limitations: no limitations History of Present Illness HPI narrative: Patient comes to the emergency room complaining of palpitations after smoking marijuana. Patient states that it was given by his friend who said he got the marijuana from a dispensary. Patient denies chest pain or shortness of breath. Related Data Previous Rx's Medication Instructions Recorded cephalexin 500 mg capsule (Keflex) 500 mg PO QID #28 caps 12/17/20 doxycycline monohydrate 100 mg 100 mg PO BID #20 caps 12/17/20 capsule ibuprofen 600 mg tablet 600 mg PO Q8H PRN pain #20 tabs 02/24/21 penicillin V potassium 500 mg 500 mg PO BID #20 tabs 02/24/21 tablet tramadol 50 mg tablet 50 mg PO BID PRN pain #5 tabs 02/24/21 hydrochlorothiazide 12.5 mg tablet 12.5 mg PO DAILY 14 days #14 tabs 04/19/21 acetaminophen 500 mg tablet 1,000 mg PO QID PRN fever or pain 05/29/21 (Tylenol Extra Strength) #14 tabs amoxicillin 875 mg-potassium 1 tab PO BID 10 days #20 tabs 05/29/21 clavulanate 125 mg tablet (Augmentin) ibuprofen 800 mg tablet 800 mg PO Q8H PRN pain #14 tabs 05/29/21 oxycodone 5 mg tablet 5 mg PO BID PRN pain #10 tabs 05/29/21 omeprazole 40 mg capsule,delayed 40 mg PO DAILY #15 caps 03/11/22 release ondansetron 4 mg disintegrating 4 mg PO BEDTIME PRN nausea and 03/11/22 tablet vomiting 4 days #8 tabs lisinopril 10 mg tablet 10 mg PO DAILY #90 tabs 01/05/23 Allergies Allergy/AdvReac Type Severity Reaction Status Date / Time No Known Allergies Allergy Verified 01/05/23 20:16 [facility] Past Medical History Medical History Diabetes Social History Social History Alcohol intake: never Substance Use Type: Marijuana Advance Directives: No Advance Directives Information Provided: Yes Physical Exam Vital Signs: Vital Signs: Last Vital Signs Pulse 70 02/05/23 01:19 Resp 16 02/05/23 01:19 BP 153/91 H 02/05/23 01:19 Pulse Ox 99 02/05/23 01:19 O2 Del Method 02/05/23 01:19 BMI result Body Mass Index 27.1 Medical Decision Making Medical Decision Making MDM Narrative: Patient's EKG and troponin negative. Patient asymptomatic. Patient likely having palpitations from THC use Patient did not provide a urine sample for U tox. Differential Diagnosis Differential Diagnoses: The differential diagnosis associated with the presentation includes (Palpitations, THC overdose) Lab Data [facility] Lab Attestation statement: I reviewed the patient's lab results. 02/05/23 01:27 02/05/23 01:27 Labs: Lab Results 02/05/23 02/05/23 02/05/23 Range/Units 01:27 01:27 01:27 WBC 7.6 (4.8-10.8) X10*3/uL RBC 5.72 (4.60-5.80) X10*6/uL Hgb 12.9 L (14.0-18.0) g/dl Hct 42.1 (42.0-52.0) % MCV 73.6 L (80.0-98.0) fL MCH 22.6 L (27.0-33.0) pg MCHC 30.6 L (31.0-36.0) g/dl RDW 13.7 (11.0-16.0) % Plt Count 199 (160-400) X10*3/uL MPV 10.4 (9.4-12.4) fL Immature Gran % (Auto) 0.1 (0.0-0.4) % Neut % (Auto) 64.4 (45-73) % Lymph % (Auto) 26.9 (20-40) % [place] % (Auto) 6.6 (2-11) % Eos % (Auto) 1.7 (0-4) % Baso % (Auto) 0.3 (0-2) % Lymph # (Auto) 2.0 (1.2-4.9) X10*3/uL [place] # (Auto) 0.5 (0.1-1.2) X10*3/uL Eos # (Auto) 0.1 (0.0-0.4) X10*3/uL Baso # (Auto) 0.0 (0.0-0.2) X10*3/uL Abs Immat Gran (auto) 0.01 (0.00-0.03) X10*3/uL Absolute Neuts (auto) 4.9 (2.0-8.3) x10*3/uL Absolute Nucleated RBC 0.000 (0.0-0.012) X10*3/uL Nucleated RBC % (auto) 0.0 (0.0-0.2) /100WBC Sodium 142 (135-145) mmol/L Potassium 3.9 (3.3-5.1) mmol/L Chloride 106 (96-108) mmol/L Carbon Dioxide 27 (22-29) mmol/L Anion Gap 13 (12-20) BUN 9 (9-16) mg/dL Creatinine 0.74 (0.5-1.4) mg/dL Estim Creat Clear Calc 151.4 Estimated GFR > 60 Random Glucose 122 H (60-115) mg/dL Calcium 9.1 (8.4-10.2) mg/dL Troponin I High Sens < 3.5 (<3.5-35.0) ng/L Discharge Plan Discharge Clinical Impression: Palpitations Patient Disposition: Home, Self-Care Instructions: Heart Palpitations (ED) Additional Instructions: Please follow-up with your primary care physician tomorrow. If you have any worsening or new symptoms, please return to the emergency room or call 911 Prescriptions: No Action doxycycline monohydrate 100 mg capsule 100 mg PO BID Qty: 20 0RF cephalexin [Keflex] 500 mg capsule 500 mg PO QID Qty: 28 0RF ibuprofen 600 mg tablet 600 mg PO Q8H PRN (Reason: pain) Qty: 20 0RF penicillin V potassium 500 mg tablet 500 mg PO BID Qty: 20 0RF tramadol 50 mg tablet 50 mg PO BID PRN (Reason: pain) Qty: 5 0RF Rx Instructions: for 3 days hydrochlorothiazide 12.5 mg tablet 12.5 mg PO DAILY 14 Days Qty: 14 0RF ibuprofen 800 mg tablet 800 mg PO Q8H PRN (Reason: pain) Qty: 14 0RF acetaminophen [Tylenol Extra Strength] 500 mg tablet 1,000 mg PO QID PRN (Reason: fever or pain) Qty: 14 0RF amoxicillin-pot clavulanate [Augmentin] 875-125 mg tablet 1 tab PO BID 10 Days Qty: 20 0RF oxycodone 5 mg tablet 5 mg PO BID PRN (Reason: pain) Qty: 10 0RF omeprazole 40 mg capsule,delayed release(DR/EC) 40 mg PO DAILY Qty: 15 0RF ondansetron 4 mg tablet,disintegrating 4 mg PO BEDTIME PRN (Reason: nausea and vomiting) 4 Days Qty: 8 0RF lisinopril 10 mg tablet 10 mg PO DAILY Qty: 90 1RF
[2023-02-05 01:19] VITALS: BP 153/91; PULSE 70; RESP 16; O2SAT 99
[2023-02-05 01:32] LABS: MANUAL DIFF FLAG NO
[2023-02-05 01:33] LABS: Basophils Percent Auto 0.3 % (0-2); Eosinophils Absolute Auto 0.1 X10*3/uL (0.0-0.4); Eosinophils Percent Auto 1.7 % (0-4); Hematocrit 42.1 % (42.0-52.0); Hemoglobin 12.9 g/dl (14.0-18.0); Imm Gran Abs Auto 0.01 X10*3/uL (0.00-0.03); Imm Gran Pct Auto 0.1 % (0.0-0.4); Lymphocytes Percent Auto 26.9 % (20-40); Mean Corpuscular HGB Conc 30.6 g/dl (31.0-36.0); Mean Corpuscular Hemoglobin 22.6 pg (27.0-33.0); Mean Corpuscular Volume 73.6 fL (80.0-98.0); Mean Platelet Volume 10.4 fL (9.4-12.4); Monocytes Absolute Auto 0.5 X10*3/uL (0.1-1.2); Monocytes Percent Auto 6.6 % (2-11); Neutrophils Absolute Auto 4.9 x10*3/uL (2.0-8.3); Neutrophils Percent Auto 64.4 % (45-73); Platelet Count 199 X10*3/uL (160-400); Red Blood Count 5.72 X10*6/uL (4.60-5.80); Red Cell Distribution Width 13.7 % (11.0-16.0); White Blood Count 7.6 X10*3/uL (4.8-10.8)
[2023-02-05 01:52] LABS: Anion Gap 13 (12-20); Blood Urea Nitrogen 9 mg/dL (9-16); Calcium 9.1 mg/dL (8.4-10.2); Carbon Dioxide 27 mmol/L (22-29); Chloride 106 mmol/L (96-108); Creatinine Clr Calc Pharmacy 151.4; Estimated Glomerular Filt Rate > 60; Glucose Random 122 mg/dL (60-115); Potassium 3.9 mmol/L (3.3-5.1); Sodium 142 mmol/L (135-145)
[2023-02-05 02:01] LABS: Troponin-I High Sensitivity < 3.5 ng/L (<3.5-35.0)
== END 2023-02-05 02:15 | disposition home or self-care (01) ==
PROVIDERS: Emergency Provider Emergency Medicine
DX: R00.2 Palpitations (principal); F12.90 Cannabis use, unspecified, uncomplicated; E11.9 Type 2 diabetes mellitus without complications; Z79.899 Other long term (current) drug therapy
CPT/HCPCS: 36415; 80048; 84484; 85025; 93005; 99283; 99285

== ENCOUNTER 2023-02-08 21:04 | Emergency (ER) | payer MEDICAID, SELFPAY ==
[2023-02-08 21:09] VITALS: BP 172/110; BP 174/120; PULSE 88; PULSE 93; RESP 18; TEMP 36.4; O2SAT 98; BMI 25.7
[2023-02-08 21:51] LABS: MANUAL DIFF FLAG NO
[2023-02-08 21:52] LABS: Basophils Absolute Auto 0.1 X10*3/uL (0.0-0.2); Basophils Percent Auto 0.6 % (0-2); Eosinophils Absolute Auto 0.1 X10*3/uL (0.0-0.4); Hematocrit 46.3 % (42.0-52.0); Hemoglobin 14.4 g/dl (14.0-18.0); Imm Gran Abs Auto 0.01 X10*3/uL (0.00-0.03); Imm Gran Pct Auto 0.1 % (0.0-0.4); Lymphocytes Absolute Auto 2.7 X10*3/uL (1.2-4.9); Lymphocytes Percent Auto 31.9 % (20-40); Mean Corpuscular HGB Conc 31.1 g/dl (31.0-36.0); Mean Corpuscular Hemoglobin 22.6 pg (27.0-33.0); Mean Corpuscular Volume 72.6 fL (80.0-98.0); Mean Platelet Volume 10.2 fL (9.4-12.4); Monocytes Absolute Auto 0.7 X10*3/uL (0.1-1.2); Monocytes Percent Auto 8.4 % (2-11); Neutrophils Absolute Auto 4.8 x10*3/uL (2.0-8.3); Platelet Count 246 X10*3/uL (160-400); Red Blood Count 6.38 X10*6/uL (4.60-5.80); Red Cell Distribution Width 13.4 % (11.0-16.0); White Blood Count 8.3 X10*3/uL (4.8-10.8)
[2023-02-08 22:06] LABS: Alanine Aminotransferase 24 U/L (0-40); Albumin Level 4.5 g/dL (3.5-5.0); Alkaline Phosphatase 73 U/L (39-117); Anion Gap 13 (12-20); Aspartate Amino Transferase 26 U/L (5-37); Bilirubin Total 0.7 mg/dL (0.0-1.0); Blood Urea Nitrogen 12 mg/dL (9-16); Calcium 9.3 mg/dL (8.4-10.2); Carbon Dioxide 26 mmol/L (22-29); Chloride 107 mmol/L (96-108); Creatinine Clr Calc Pharmacy 130.3; Estimated Glomerular Filt Rate > 60; Glucose Random 156 mg/dL (60-115); Potassium 3.9 mmol/L (3.3-5.1); Sodium 142 mmol/L (135-145); Total Protein 7.7 g/dL (6.5-8.0)
[2023-02-08 23:40] VITALS: BP 168/109; PULSE 75; RESP 17; TEMP 37; O2SAT 99
--- NOTE | 2023-02-08 23:50 | ED.GENADULT ---
HPI - General Adult General Chief complaint: General Medical Stated complaint: Hypertension Time Seen by Provider: 02/08/23 23:44 Source: patient Mode of arrival: ambulatory Limitations: no limitations History of Present Illness HPI narrative: Patient recently diagnosed with hypertension 01/05/2023 started on lisinopril 10 mg has increased anxiety been here 3 days ago for same sling pressure. Patient comes back again blood pressure was elevated at home 170/112 on arrival it was 174/120 repeat blood pressure 165/104 heart rate of 80s patient feels relaxed otherwise no headache no chest pain no palpitation no shortness of breath Related Data Previous Rx's Medication Instructions Recorded cephalexin 500 mg capsule (Keflex) 500 mg PO QID #28 caps 12/17/20 doxycycline monohydrate 100 mg 100 mg PO BID #20 caps 12/17/20 capsule ibuprofen 600 mg tablet 600 mg PO Q8H PRN pain #20 tabs 02/24/21 penicillin V potassium 500 mg 500 mg PO BID #20 tabs 02/24/21 tablet tramadol 50 mg tablet 50 mg PO BID PRN pain #5 tabs 02/24/21 hydrochlorothiazide 12.5 mg tablet 12.5 mg PO DAILY 14 days #14 tabs 04/19/21 acetaminophen 500 mg tablet 1,000 mg PO QID PRN fever or pain 05/29/21 (Tylenol Extra Strength) #14 tabs amoxicillin 875 mg-potassium 1 tab PO BID 10 days #20 tabs 05/29/21 clavulanate 125 mg tablet (Augmentin) ibuprofen 800 mg tablet 800 mg PO Q8H PRN pain #14 tabs 05/29/21 oxycodone 5 mg tablet 5 mg PO BID PRN pain #10 tabs 05/29/21 omeprazole 40 mg capsule,delayed 40 mg PO DAILY #15 caps 03/11/22 release ondansetron 4 mg disintegrating 4 mg PO BEDTIME PRN nausea and 03/11/22 tablet vomiting 4 days #8 tabs lisinopril 10 mg tablet 10 mg PO DAILY #90 tabs 01/05/23 hydrochlorothiazide 12.5 mg tablet 12.5 mg PO QAM #30 tabs 02/09/23 lisinopril 20 mg tablet 20 mg PO DAILY #30 tabs 02/09/23 Allergies Allergy/AdvReac Type Severity Reaction Status Date / Time No Known Allergies Allergy Verified 01/05/23 20:16 Review of Systems Review of Systems: Constitutional : No Weight loss, No Fever, No Chills ENT/Mouth : No sore throat, No Rhinorrhea Eyes: No Eye Pain, No Swelling Cardiovascular : No Chest Pain, no palpitations Respiratory : No Cough, No Sputum, no shortness of breath Gastrointestinal : no Nausea, No Vomiting, No Diarrhea, No abdominal Pain, no black stools Genitourinary : No Dysuria, No Urinary Frequency Musculoskeletal : No joint pain, No Myalgias, No Joint Swelling Skin : No Skin Lesions, No rash Neuro : No Weakness, No Numbness, No Dizziness, No Headache Psych : No Anxiety/Panic, No Depression Heme/Lymph: No Bruising, No Lymphadenopathy Endocrine : No Polyuria, No Polydipsia All other systems reviewed and are negative Yes all other systems are reviewed and are negative [facility] Past Medical History Medical History Diabetes Social History Social History Alcohol intake: never Substance Use Type: Marijuana Advance Directives: No Advance Directives Information Provided: No Physical Exam ED Vital Signs: Vital Signs - 24 hr 02/08/23 21:09 02/08/23 23:40 Temperature 97.5 F 98.6 F Pulse Rate 88 75 Respiratory Rate 18 17 Blood Pressure 174/120 H 168/109 H Pulse Oximetry 98 99 Oxygen Delivery Method Room Air Room Air BMI result Body Mass Index 25.7 Appearance: Alert. Oriented X3. No acute distress. Anxious Eyes: PERRLA, No Nystagmus ENT: Pharynx normal. Oral Mucosa moist Neck: Normal inspection. Neck supple. CVS: Normal heart rate and rhythm. Pulses normal. Respiratory: No respiratory distress. Equal air entry bilateral, no wheezing/rales/rhonchi Abdomen: Soft and nontender. Bowel sounds are present, no mass palpable, no CVA tenderness Skin: Skin warm and dry. Normal skin color. Normal skin turgor. Extremities: No lower extremity edema. No calf tenderness Neuro: Oriented X 3. No motor deficit. No sensory deficit.No cerebellar signs , cranial nerves II-XII intact Medical Decision Making Medical Decision Making MDM Narrative: Patient with hypertension will increase the dose of lisinopril 20 mg along with and hydrochlorothiazide 1 tablet on advised to follow with PCP no signs of end-organ damage patient been educated about hypertension and importance of taking the medication daily at the same time and check blood pressure twice daily Lab Data MDM Lab Attestation statement: I reviewed the patient's lab results. 02/08/23 21:47 02/08/23 21:47 Labs: Lab Results 02/08/23 02/08/23 Range/Units 21:47 21:47 WBC 8.3 (4.8-10.8) X10*3/uL RBC 6.38 H (4.60-5.80) X10*6/uL Hgb 14.4 (14.0-18.0) g/dl Hct 46.3 (42.0-52.0) % MCV 72.6 L (80.0-98.0) fL MCH 22.6 L (27.0-33.0) pg MCHC 31.1 (31.0-36.0) g/dl RDW 13.4 (11.0-16.0) % Plt Count 246 (160-400) X10*3/uL MPV 10.2 (9.4-12.4) fL Immature Gran % (Auto) 0.1 (0.0-0.4) % Neut % (Auto) 58.0 (45-73) % Lymph % (Auto) 31.9 (20-40) % [place] % (Auto) 8.4 (2-11) % Eos % (Auto) 1.0 (0-4) % Baso % (Auto) 0.6 (0-2) % Lymph # (Auto) 2.7 (1.2-4.9) X10*3/uL [place] # (Auto) 0.7 (0.1-1.2) X10*3/uL Eos # (Auto) 0.1 (0.0-0.4) X10*3/uL Baso # (Auto) 0.1 (0.0-0.2) X10*3/uL Abs Immat Gran (auto) 0.01 (0.00-0.03) X10*3/uL Absolute Neuts (auto) 4.8 (2.0-8.3) x10*3/uL Absolute Nucleated RBC 0.000 (0.0-0.012) X10*3/uL Nucleated RBC % (auto) 0.0 (0.0-0.2) /100WBC Sodium 142 (135-145) mmol/L Potassium 3.9 (3.3-5.1) mmol/L Chloride 107 (96-108) mmol/L Carbon Dioxide 26 (22-29) mmol/L Anion Gap 13 (12-20) BUN 12 (9-16) mg/dL Creatinine 0.86 (0.5-1.4) mg/dL Estim Creat Clear Calc 130.3 Estimated GFR > 60 Random Glucose 156 H (60-115) mg/dL Calcium 9.3 (8.4-10.2) mg/dL Total Bilirubin 0.7 (0.0-1.0) mg/dL AST 26 (5-37) U/L ALT 24 (0-40) U/L Alkaline Phosphatase 73 (39-117) U/L Total Protein 7.7 (6.5-8.0) g/dL Albumin 4.5 (3.5-5.0) g/dL Discharge Plan Discharge Clinical Impression: Hypertension Patient Disposition: Home, Self-Care Instructions: Hypertension (ED) Additional Instructions: Increase the dose of lisinopril to 20 mg daily Start taking hydrochlorothiazide 12.5 mg daily in the a.m. along with lisinopril Prescriptions: New lisinopril 20 mg tablet 20 mg PO DAILY Qty: 30 3RF hydrochlorothiazide 12.5 mg tablet 12.5 mg PO QAM Qty: 30 3RF No Action doxycycline monohydrate 100 mg capsule 100 mg PO BID Qty: 20 0RF cephalexin [Keflex] 500 mg capsule 500 mg PO QID Qty: 28 0RF ibuprofen 600 mg tablet 600 mg PO Q8H PRN (Reason: pain) Qty: 20 0RF penicillin V potassium 500 mg tablet 500 mg PO BID Qty: 20 0RF tramadol 50 mg tablet 50 mg PO BID PRN (Reason: pain) Qty: 5 0RF Rx Instructions: for 3 days hydrochlorothiazide 12.5 mg tablet 12.5 mg PO DAILY 14 Days Qty: 14 0RF ibuprofen 800 mg tablet 800 mg PO Q8H PRN (Reason: pain) Qty: 14 0RF acetaminophen [Tylenol Extra Strength] 500 mg tablet 1,000 mg PO QID PRN (Reason: fever or pain) Qty: 14 0RF amoxicillin-pot clavulanate [Augmentin] 875-125 mg tablet 1 tab PO BID 10 Days Qty: 20 0RF oxycodone 5 mg tablet 5 mg PO BID PRN (Reason: pain) Qty: 10 0RF omeprazole 40 mg capsule,delayed release(DR/EC) 40 mg PO DAILY Qty: 15 0RF ondansetron 4 mg tablet,disintegrating 4 mg PO BEDTIME PRN (Reason: nausea and vomiting) 4 Days Qty: 8 0RF lisinopril 10 mg tablet 10 mg PO DAILY Qty: 90 1RF
[2023-02-09] MEDS: lisinopriL 10 MG TABLET PO (00:16)
[2023-02-09 00:17] VITALS: BP 159/92; PULSE 80
--- NOTE | 2023-02-09 00:29 | PC.NURSE ---
pt's family at bedside. pt ambulatory at this time. pt medicated according to mar.pt provided with discharge packet. pt verbalized understanding of discharge plan
== END 2023-02-09 00:30 | disposition home or self-care (01) ==
PROVIDERS: Emergency Provider Internal Medicine
DX: I10 Essential (primary) hypertension (principal); Z79.899 Other long term (current) drug therapy
CPT/HCPCS: 36415; 80053; 85025; 99283; 99284

== ENCOUNTER 2023-02-10 06:37 | Emergency (ER) | payer MEDICAID, SELFPAY ==
[2023-02-10 06:42] VITALS: BP 151/101; PULSE 108; RESP 18; TEMP 36.6; O2SAT 99; BMI 25.7
--- NOTE | 2023-02-10 06:44 | ECG_ITS ---
Test Reason : CHEST PAIN Blood Pressure : / mmHG Vent. Rate : 099 BPM Atrial Rate : 099 BPM P-R Int : 150 ms QRS Dur : 090 ms QT Int : 328 ms P-R-T Axes : 076 012 023 degrees QTc Int : 420 ms Normal sinus rhythm Cannot rule out Anterior infarct , age undetermined Abnormal ECG When compared with ECG of 05-FEB-2023 00:37, Nonspecific T wave abnormality, worse in Lateral leads Referred By: Generic ED Physician Electronically Signed By:Hunter Story
[2023-02-10 06:58] LABS: Basophils Absolute Auto 0.1 X10*3/uL (0.0-0.2); Basophils Percent Auto 0.6 % (0-2); Eosinophils Absolute Auto 0.1 X10*3/uL (0.0-0.4); Eosinophils Percent Auto 1.6 % (0-4); Hematocrit 52.1 % (42.0-52.0); Hemoglobin 16.3 g/dl (14.0-18.0); Imm Gran Abs Auto 0.02 X10*3/uL (0.00-0.03); Imm Gran Pct Auto 0.3 % (0.0-0.4); Lymphocytes Absolute Auto 2.1 X10*3/uL (1.2-4.9); Lymphocytes Percent Auto 26.5 % (20-40); MANUAL DIFF FLAG NO; Mean Corpuscular HGB Conc 31.3 g/dl (31.0-36.0); Mean Corpuscular Hemoglobin 22.6 pg (27.0-33.0); Mean Corpuscular Volume 72.4 fL (80.0-98.0); Mean Platelet Volume 11.1 fL (9.4-12.4); Monocytes Absolute Auto 0.9 X10*3/uL (0.1-1.2); Monocytes Percent Auto 11.9 % (2-11); Neutrophils Absolute Auto 4.6 x10*3/uL (2.0-8.3); Neutrophils Percent Auto 59.1 % (45-73); Platelet Count 247 X10*3/uL (160-400); Red Cell Distribution Width 14.4 % (11.0-16.0); White Blood Count 7.7 X10*3/uL (4.8-10.8)
[2023-02-10 07:19] VITALS: BP 154/109; PULSE 97; RESP 20; TEMP 36.4; O2SAT 97
[2023-02-10 07:22] LABS: Troponin-I High Sensitivity < 3.5 ng/L (<3.5-35.0)
[2023-02-10 07:26] VITALS: PULSE 94
--- NOTE | 2023-02-10 07:29 | PC.NURSE ---
Pt is alert/oriented. NSR on monitor. Skin color normal for ethnicity, warm and dry. Reports left posterior headache and CP. HTN, took meds as rx this AM. Denies dizziness or SOB. LS clear. Visitor at bedside
[2023-02-10 07:46] LABS: Anion Gap 14 (12-20); Blood Urea Nitrogen 10 mg/dL (9-16); Calcium 9.5 mg/dL (8.4-10.2); Carbon Dioxide 23 mmol/L (22-29); Chloride 106 mmol/L (96-108); Estimated Glomerular Filt Rate > 60; Glucose Random 256 mg/dL (60-115); Potassium 4.3 mmol/L (3.3-5.1); Sodium 139 mmol/L (135-145)
--- NOTE | 2023-02-10 08:13 | ED.CHESTPAIN ---
HPI - Chest Pain General Chief Complaint: Chest Pain Stated Complaint: high bp Time Seen by Provider: 02/10/23 08:11 Source: patient Mode of arrival: ambulatory Limitations: no limitations History of Present Illness HPI narrative: Patient is a 37 year old assigned male at with a history of HTN presenting to the emergency department today with now resolved chest pain and headache. Patient states that he has had intermittent chest pain and headaches for the last 2 days and he was concerned that his blood pressure was higher than usual. Patient states that he has an appointment with his PCP coming but thought he should be checked here first. Patient denies any current dizziness, lightheadedness, abdominal pain, nausea, vomiting, fever, chills, blurry vision, double vision, loss of vision, chest pain, difficulty breathing, shortness of breath, back pain, night sweats, pain with urination, increased urinary frequency, increased urinary urgency, blood in his urine or stool, syncope or a near syncopal episode, recent trauma or falls, bowel incontinence, bladder incontinence, bowel retention, bladder retention, or any other complaints at this time. Relieving factors: nothing Exacerbating factors: nothing Treatment prior to arrival: none Related Data Previous Rx's Medication Instructions Recorded cephalexin 500 mg capsule (Keflex) 500 mg PO QID #28 caps 12/17/20 doxycycline monohydrate 100 mg 100 mg PO BID #20 caps 12/17/20 capsule ibuprofen 600 mg tablet 600 mg PO Q8H PRN pain #20 tabs 02/24/21 penicillin V potassium 500 mg 500 mg PO BID #20 tabs 02/24/21 tablet tramadol 50 mg tablet 50 mg PO BID PRN pain #5 tabs 02/24/21 hydrochlorothiazide 12.5 mg tablet 12.5 mg PO DAILY 14 days #14 tabs 04/19/21 acetaminophen 500 mg tablet 1,000 mg PO QID PRN fever or pain 05/29/21 (Tylenol Extra Strength) #14 tabs amoxicillin 875 mg-potassium 1 tab PO BID 10 days #20 tabs 05/29/21 clavulanate 125 mg tablet (Augmentin) ibuprofen 800 mg tablet 800 mg PO Q8H PRN pain #14 tabs 05/29/21 oxycodone 5 mg tablet 5 mg PO BID PRN pain #10 tabs 05/29/21 omeprazole 40 mg capsule,delayed 40 mg PO DAILY #15 caps 03/11/22 release ondansetron 4 mg disintegrating 4 mg PO BEDTIME PRN nausea and 03/11/22 tablet vomiting 4 days #8 tabs lisinopril 10 mg tablet 10 mg PO DAILY #90 tabs 01/05/23 hydrochlorothiazide 12.5 mg tablet 12.5 mg PO QAM #30 tabs 02/09/23 lisinopril 20 mg tablet 20 mg PO DAILY #30 tabs 02/09/23 Allergies Allergy/AdvReac Type Severity Reaction Status Date / Time No Known Allergies Allergy Verified 01/05/23 20:16 Review of Systems Constitutional: Constitutional: Reports no additional constitutional complaints, Denies chills, Denies fever(s), Reports headache(s) (now resolved) and Denies night sweats Eyes: Eyes: Reports no additional eye complaints, Denies blurry vision, Denies change in vision, Denies diplopia, Denies eye discharge, Denies loss of vision and Denies eye pain ENT: Denies dizziness and Reports headache(s) (now resolved) Cardiovascular: Cardiovascular: Reports no additional cardiovascular complaints, Reports chest pain (now resolved), Denies lightheadedness, Denies Loss of Consciousness and Denies dyspnea Respiratory: Respiratory: Reports no additional respiratory complaints and Denies dyspnea Gastrointestinal: Gastrointestinal: Reports no additional gastrointestinal complaints, Denies abdominal pain, Denies melena, Denies hematochezia, Denies change in bowel habits and Denies change in stool character Genitourinary: Genitourinary: Reports no additional male genitourinary complaints, Denies hematuria, Denies oliguria, Denies difficulty urinating, Denies dysuria, Denies urinary frequency, Denies urinary hesitancy, Denies urinary incontinence and Denies urinary urgency Musculoskeletal: Musculoskeletal: Reports no additional musculoskeletal complaints, Denies numbness and Denies tingling Neurologic: Denies dizziness, Reports headache(s) (now resolved), Denies loss of vision, Denies numbness and Denies tingling Psychiatric: Psychiatric: Reports no additional psychiatric complaints Endocrine: Endocrine: Reports no additional endocrine complaints Hematologic/Lymphatic: Hematologic/Lymphatic: Reports no additional hematologic/lymphatic complaints Allergic/Immunologic: Allergic/Immunologic: Reports no additional allergic/immunologic complaints PMFSH Past Medical History Attestation statement: The following information was validated with the patient. Source: old records reviewed and nursing notes reviewed Medical History Diabetes Social History Social History Alcohol intake: never Smoked in Last 30 Days: No Use of substances other than those prescribed or required for medical reasons: Yes Substance Use Type: Marijuana Advance Directives: No Advance Directives Information Provided: No Physical Exam Vital Signs: Vital Signs: Last Vital Signs Temp 97.6 F 02/10/23 07:19 Pulse 97 02/10/23 07:19 Resp 20 02/10/23 07:19 BP 154/109 H 02/10/23 07:19 Pulse Ox 97 02/10/23 07:19 O2 Del Method 02/10/23 07:19 BMI result Body Mass Index 25.7 Const: General: cooperative, no acute distress, alert and awake Nutritional Appearance: well nourished Orientation/consciousness: patient oriented x3 Limitations: no limitations HEENT: Head: Yes normal to inspection and Yes atraumatic Ears: hearing grossly normal bilaterally and external ears normal General nose exam: Normal external nose present, no nasal discharge noted and no epistaxis Face and sinus: Yes normal facial exam, No abrasion and No laceration Mouth: Normal oral and palatal mucosa present, no drooling and no muffled voice Eyes: General: appearance normal, both eyes and all related structures Periorbital: periorbital findings normal Eyelids: Yes eyelids normal Conjunctivae: conjunctivae normal Pupils: Equal, round and reactive pupils present EOM: EOMs intact bilaterally Neck: Neck: Yes normal visual inspection, Yes full ROM and Yes no lymphadenopathy Chest: Chest palpation & inspection: normal inspection of the chest Resp: Effort & Inspection: normal respiratory effort and able to speak in complete sentences Auscultation: clear to auscultation bilaterally Cardio: Rate: regular rate Rhythm: regular rhythm GI: Inspection: Yes normal to inspection Palpation (GI): Soft to palpation, not firm, nontender, no guarding and not rigid Neuro: General: patient oriented x3 and moves all extremities Cranial nerves: Yes Equal, round and reactive pupils present Cognition (Neuro): normal cognition Motor exam (neuro): 5/5 motor strength present throughout Sensory Exam: Normal double simultaneous stimulation for sensation Coordination: [id number] test normal Extrem: General: Yes normal to inspection, Yes full ROM and Yes capillary refill normal Psych: Appearance: grossly normal Mental Status: mental status grossly normal Affect: normal affect Attitude: cooperative Thought process: Normal thought process present Thought content: Normal thought content present Insight: Good insight present (Psych) Medical Decision Making Medical Decision Making [facility] Narrative: Patient is a 37 year old assigned male at with a history of HTN presenting to the emergency department today with now resolved intermittent chest pain and intermittent headaches. Patient's physical exam was unremarkable. Patient's blood work was unremarkable. Patient's EKG was unremarkable. I explained my physical exam findings as well as all test results to the patient. I answered all questions asked by the patient. I stressed the importance of the patient taking his medication as prescribed. I stressed the importance of the patient following up with his primary care provider and a preassembler and inspector. I stressed the importance of the patient returning to the emergency department immediately if his symptoms were to worsen or if he were to develop any dizziness, shortness of breath, difficulty breathing, chest pain, blurry vision, loss of vision, nausea, vomiting, abdominal pain, fever, chills, back pain, or any other complaints. Patient verbalized agreement and understanding with this treatment plan and discharge. Differential Diagnosis Differential Diagnoses: The differential diagnosis associated with the presentation includes hx of HTN Lab Data [facility] Lab Attestation statement: I reviewed the patient's lab results. 02/10/23 06:52 02/10/23 07:27 Labs: Lab Results 02/10/23 02/10/23 02/10/23 Range/Units 06:52 06:52 07:27 WBC 7.7 (4.8-10.8) X10*3/uL RBC 7.20 H (4.60-5.80) X10*6/uL Hgb 16.3 (14.0-18.0) g/dl Hct 52.1 H (42.0-52.0) % MCV 72.4 L (80.0-98.0) fL MCH 22.6 L (27.0-33.0) pg MCHC 31.3 (31.0-36.0) g/dl RDW 14.4 (11.0-16.0) % Plt Count 247 (160-400) X10*3/uL MPV 11.1 (9.4-12.4) fL Immature Gran % (Auto) 0.3 (0.0-0.4) % Neut % (Auto) 59.1 (45-73) % Lymph % (Auto) 26.5 (20-40) % [place] % (Auto) 11.9 H (2-11) % Eos % (Auto) 1.6 (0-4) % Baso % (Auto) 0.6 (0-2) % Lymph # (Auto) 2.1 (1.2-4.9) X10*3/uL [place] # (Auto) 0.9 (0.1-1.2) X10*3/uL Eos # (Auto) 0.1 (0.0-0.4) X10*3/uL Baso # (Auto) 0.1 (0.0-0.2) X10*3/uL Abs Immat Gran (auto) 0.02 (0.00-0.03) X10*3/uL Absolute Neuts (auto) 4.6 (2.0-8.3) x10*3/uL Absolute Nucleated RBC 0.000 (0.0-0.012) X10*3/uL Nucleated RBC % (auto) 0.0 (0.0-0.2) /100WBC Sodium 139 (135-145) mmol/L Potassium 4.3 (3.3-5.1) mmol/L Chloride 106 (96-108) mmol/L Carbon Dioxide 23 (22-29) mmol/L Anion Gap 14 (12-20) BUN 10 (9-16) mg/dL Creatinine 1.00 (0.5-1.4) mg/dL Estim Creat Clear Calc 112.0 Estimated GFR > 60 Random Glucose 256 H (60-115) mg/dL Calcium 9.5 (8.4-10.2) mg/dL Troponin I High Sens < 3.5 (<3.5-35.0) ng/L Independent Interpretation I performed an independent interpretation of an: EKG Interpretation: Vent. Rate: 099 BPM ? ? Atrial Rate: 099 BPM P-R Int: 150 ms? QRS Dur: 090 ms QT Int: 328 ms ? ? ? P-R-T Axes: 076 012 023 degrees QTc Int: 420 ms ? Normal sinus rhythm Cannot rule out Anterior infarct , age undetermined Abnormal ECG When compared with ECG of 05-FEB-2023 00:37, Nonspecific T wave abnormality, worse in Lateral leads DD/ [id number] Discharge Plan Discharge Clinical Impression: HTN (hypertension) Patient Disposition: Home, Self-Care Instructions: Hypertension (ED) Additional Instructions: Follow up with your primary care provider. Return to the emergency department immediately if your symptoms worsen or if you develop any dizziness, shortness of breath, difficulty breathing, chest pain, blurry vision, loss of vision, nausea, vomiting, abdominal pain, fever, chills, back pain, or any other complaints. Prescriptions: No Action doxycycline monohydrate 100 mg capsule 100 mg PO BID Qty: 20 0RF cephalexin [Keflex] 500 mg capsule 500 mg PO QID Qty: 28 0RF ibuprofen 600 mg tablet 600 mg PO Q8H PRN (Reason: pain) Qty: 20 0RF penicillin V potassium 500 mg tablet 500 mg PO BID Qty: 20 0RF tramadol 50 mg tablet 50 mg PO BID PRN (Reason: pain) Qty: 5 0RF Rx Instructions: for 3 days hydrochlorothiazide 12.5 mg tablet 12.5 mg PO DAILY 14 Days Qty: 14 0RF ibuprofen 800 mg tablet 800 mg PO Q8H PRN (Reason: pain) Qty: 14 0RF acetaminophen [Tylenol Extra Strength] 500 mg tablet 1,000 mg PO QID PRN (Reason: fever or pain) Qty: 14 0RF amoxicillin-pot clavulanate [Augmentin] 875-125 mg tablet 1 tab PO BID 10 Days Qty: 20 0RF oxycodone 5 mg tablet 5 mg PO BID PRN (Reason: pain) Qty: 10 0RF omeprazole 40 mg capsule,delayed release(DR/EC) 40 mg PO DAILY Qty: 15 0RF ondansetron 4 mg tablet,disintegrating 4 mg PO BEDTIME PRN (Reason: nausea and vomiting) 4 Days Qty: 8 0RF lisinopril 20 mg tablet 20 mg PO DAILY Qty: 30 3RF hydrochlorothiazide 12.5 mg tablet 12.5 mg PO QAM Qty: 30 3RF lisinopril 10 mg tablet 10 mg PO DAILY Qty: 90 1RF Referrals: [facility] [Primary Care Provider] - [facility] [place] [facility] [Provider Group] (Call to establish and follow up with a preassembler and inspector. ) Stand Alone Forms: Work/School Release Print Language: Lithuanian
[2023-02-10 09:11] VITALS: BP 148/100; PULSE 83; RESP 16
== END 2023-02-10 09:11 | disposition home or self-care (01) ==
PROVIDERS: Emergency Provider Emergency Medicine
DX: I10 Essential (primary) hypertension (principal); E11.9 Type 2 diabetes mellitus without complications; F12.90 Cannabis use, unspecified, uncomplicated; Z79.899 Other long term (current) drug therapy
CPT/HCPCS: 36415; 80048; 84484; 85025; 93005; 99284; 99285

== ENCOUNTER 2023-02-11 07:20 | Emergency (ER) | payer MEDICAID, SELFPAY ==
[2023-02-11 07:29] VITALS: BP 147/107; PULSE 113; RESP 18; TEMP 36.5; O2SAT 99; BMI 25.7
--- NOTE | 2023-02-11 07:35 | ECG_ITS ---
Test Reason : hi bp Blood Pressure : / mmHG Vent. Rate : 104 BPM Atrial Rate : 104 BPM P-R Int : 146 ms QRS Dur : 082 ms QT Int : 314 ms P-R-T Axes : 077 027 047 degrees QTc Int : 412 ms Sinus tachycardia Nonspecific T wave abnormality Abnormal ECG When compared with ECG of 10-FEB-2023 06:47, No significant change was found Referred By: Generic ED Physician Electronically Signed By:Hunter Story
--- NOTE | 2023-02-11 07:47 | ED_ITS ---
HPI - General Adult General Chief complaint: General Medical Stated complaint: high bp Time Seen by Provider: 02/11/23 07:43 Source: patient Mode of arrival: ambulatory Limitations: no limitations History of Present Illness HPI narrative: Patient felt heart palpitations and checked his blood pressure. Today he felt that his palpitations were worse. 158/120 and his heart rate was 120. Patient was seen in the ED 2 days ago for the same thing. His EKG has remained unchanged and his troponin has remained negative. His sugars have been running high. Onset (ago): week(s) Location: chest Severity: mild Quality: other (palpitations) Pain Consistency: intermittent Related Data Previous Rx's Medication Instructions Recorded cephalexin 500 mg capsule (Keflex) 500 mg PO QID #28 caps 12/17/20 doxycycline monohydrate 100 mg 100 mg PO BID #20 caps 12/17/20 capsule ibuprofen 600 mg tablet 600 mg PO Q8H PRN pain #20 tabs 02/24/21 penicillin V potassium 500 mg 500 mg PO BID #20 tabs 02/24/21 tablet tramadol 50 mg tablet 50 mg PO BID PRN pain #5 tabs 02/24/21 hydrochlorothiazide 12.5 mg tablet 12.5 mg PO DAILY 14 days #14 tabs 04/19/21 acetaminophen 500 mg tablet 1,000 mg PO QID PRN fever or pain 05/29/21 (Tylenol Extra Strength) #14 tabs amoxicillin 875 mg-potassium 1 tab PO BID 10 days #20 tabs 05/29/21 clavulanate 125 mg tablet (Augmentin) ibuprofen 800 mg tablet 800 mg PO Q8H PRN pain #14 tabs 05/29/21 oxycodone 5 mg tablet 5 mg PO BID PRN pain #10 tabs 05/29/21 omeprazole 40 mg capsule,delayed 40 mg PO DAILY #15 caps 03/11/22 release ondansetron 4 mg disintegrating 4 mg PO BEDTIME PRN nausea and 03/11/22 tablet vomiting 4 days #8 tabs lisinopril 10 mg tablet 10 mg PO DAILY #90 tabs 01/05/23 hydrochlorothiazide 12.5 mg tablet 12.5 mg PO QAM #30 tabs 02/09/23 lisinopril 20 mg tablet 20 mg PO DAILY #30 tabs 02/09/23 Allergies Allergy/AdvReac Type Severity Reaction Status Date / Time No Known Allergies Allergy Verified 02/11/23 07:33 Review of Systems Review of Systems: Yes all other systems are reviewed and are negative Cardiovascular: Cardiovascular: Reports other (palpitations and high blood pressure) [facility] Past Medical History Medical History Diabetes Social History Social History Alcohol intake: never Substance Use Type: Marijuana Advance Directives: No Advance Directives Information Provided: Yes Physical Exam ED Vital Signs: Vital Signs - 24 hr 02/11/23 07:29 02/11/23 08:24 Temperature 97.7 F 98.3 F Pulse Rate 113 H 106 H Respiratory Rate 18 14 Blood Pressure 147/107 H 139/95 H Pulse Oximetry 99 99 Oxygen Delivery Method Room Air Room Air BMI result Body Mass Index 25.7 Const General: healthy appearing Nutritional Appearance: average body habitus Orientation/consciousness: oriented to person and patient oriented x3 Limitations: no limitations HENMT Head: Yes normal to inspection Ears: external ears normal General nose exam: Normal external nose present Mouth: Normal oral and palatal mucosa present and oropharynx normal Throat: Yes posterior oropharynx normal Eyes General: appearance normal, both eyes and all related structures Neck Neck: Yes normal visual inspection Chest Chest palpation & inspection: normal inspection of the chest Resp Auscultation: clear to auscultation bilaterally Cardio Jugular venous distension: no JVD Rate: regular rate Rhythm: regular rhythm Heart sounds: S1 normal heart sound present and S2 normal heart sound present GI Inspection: Yes normal to inspection Palpation (GI): Soft to palpation, nontender and No hepatosplenomegaly present Auscultation: normal bowel sounds General: Yes no CVA tenderness Back/Spine/Pelvis Back: no CVA tenderness Skin General skin exam: no rashes or lesions noted Neuro General: oriented to person and patient oriented x3 Cranial nerves: Yes CN's II-XII intact bilaterally Motor exam (neuro): 5/5 motor strength present throughout Extrem General: Yes normal to inspection Psych Appearance: grossly normal Medical Decision Making Differential Diagnosis Differential Diagnoses: The differential diagnosis associated with the prese ntation includes (palpitations, anxiety, high blood pressure, diabetes) Admission/Observation Consideration of admission/observation: Escalation of care including admission/observation considered (In a patient with diabetes, high blood pressure, palpitations admission was considered.) Lab Data 02/11/23 08:16 Labs: Lab Results 02/11/23 02/11/23 Range/Units 08:16 08:16 Sodium 138 (135-145) mmol/L Potassium 4.1 (3.3-5.1) mmol/L Chloride 104 (96-108) mmol/L Carbon Dioxide 22 (22-29) mmol/L Anion Gap 16 (12-20) BUN 12 (9-16) mg/dL Creatinine 1.05 (0.5-1.4) mg/dL Estim Creat Clear Calc 106.7 Estimated GFR > 60 Random Glucose 259 H (60-115) mg/dL Calcium 9.7 (8.4-10.2) mg/dL Troponin I High Sens 11.3 D (<3.5-35.0) ng/L Independent Interpretation I performed an independent interpretation of an: EKG (sinus of 100, non specific st or twave changes, no changes from yesterday) Discharge Plan Discharge Clinical Impression: Heart palpitations, BP (high blood pressure) Patient Disposition: Home, Self-Care Instructions: Heart Palpitations (ED), Hypertension (ED) Prescriptions: No Action doxycycline monohydrate 100 mg capsule 100 mg PO BID Qty: 20 0RF cephalexin [Keflex] 500 mg capsule 500 mg PO QID Qty: 28 0RF ibuprofen 600 mg tablet 600 mg PO Q8H PRN (Reason: pain) Qty: 20 0RF penicillin V potassium 500 mg tablet 500 mg PO BID Qty: 20 0RF tramadol 50 mg tablet 50 mg PO BID PRN (Reason: pain) Qty: 5 0RF Rx Instructions: for 3 days hydrochlorothiazide 12.5 mg tablet 12.5 mg PO DAILY 14 Days Qty: 14 0RF ibuprofen 800 mg tablet 800 mg PO Q8H PRN (Reason: pain) Qty: 14 0RF acetaminophen [Tylenol Extra Strength] 500 mg tablet 1,000 mg PO QID PRN (Reason: fever or pain) Qty: 14 0RF amoxicillin-pot clavulanate [Augmentin] 875-125 mg tablet 1 tab PO BID 10 Days Qty: 20 0RF oxycodone 5 mg tablet 5 mg PO BID PRN (Reason: pain) Qty: 10 0RF omeprazole 40 mg capsule,delayed release(DR/EC) 40 mg PO DAILY Qty: 15 0RF ondansetron 4 mg tablet,disintegrating 4 mg PO BEDTIME PRN (Reason: nausea and vomiting) 4 Days Qty: 8 0RF lisinopril 20 mg tablet 20 mg PO DAILY Qty: 30 3RF hydrochlorothiazide 12.5 mg tablet 12.5 mg PO QAM Qty: 30 3RF lisinopril 10 mg tablet 10 mg PO DAILY Qty: 90 1RF Referrals: Physician,Unknown J [Primary Care Provider] - 1 week
[2023-02-11 08:24] VITALS: BP 139/95; PULSE 106; RESP 14; TEMP 36.8; O2SAT 99
[2023-02-11 08:43] LABS: Anion Gap 16 (12-20); Blood Urea Nitrogen 12 mg/dL (9-16); Calcium 9.7 mg/dL (8.4-10.2); Carbon Dioxide 22 mmol/L (22-29); Chloride 104 mmol/L (96-108); Creatinine Clr Calc Pharmacy 106.7; Estimated Glomerular Filt Rate > 60; Glucose Random 259 mg/dL (60-115); Potassium 4.1 mmol/L (3.3-5.1); Sodium 138 mmol/L (135-145)
[2023-02-11 08:51] LABS: Troponin-I High Sensitivity 11.3 ng/L (<3.5-35.0)
[2023-02-11 10:51] VITALS: BP 134/98; PULSE 100; RESP 19; O2SAT 98
== END 2023-02-11 10:53 | disposition home or self-care (01) ==
PROVIDERS: Emergency Provider Emergency Medicine
DX: R00.2 Palpitations (principal); R03.0 Elevated blood-pressure reading, without diagnosis of hypertension; Z79.899 Other long term (current) drug therapy
CPT/HCPCS: 36415; 80048; 84484; 93005; 99283; 99284

== ENCOUNTER 2023-02-12 09:35 | Emergency (ER) | payer MEDICAID, SELFPAY ==
--- NOTE | ~2023-02-12 | XR_ITS ---
EXAMINATION: XR CHEST CLINICAL INFORMATION: Chest pressure. COMPARISON: None available. TECHNIQUE: Frontal view of the chest was obtained. FINDINGS: No significant abnormality is noted involving the heart, lungs, mediastinum, bony thorax or soft tissues. XR/XR chest 1V IMPRESSION: No acute cardiopulmonary process.
[2023-02-12 09:38] VITALS: BP 152/126; PULSE 131; RESP 17; TEMP 36.1; O2SAT 100; BMI 25.7
--- NOTE | 2023-02-12 09:42 | ECG_ITS ---
Test Reason : SOB Blood Pressure : / mmHG Vent. Rate : 109 BPM Atrial Rate : 109 BPM P-R Int : 134 ms QRS Dur : 082 ms QT Int : 336 ms P-R-T Axes : 078 028 -06 degrees QTc Int : 452 ms Sinus tachycardia Nonspecific T wave abnormality Abnormal ECG When compared with ECG of 11-FEB-2023 07:36, No significant change was found Referred By: Generic ED Physician Electronically Signed By:Hunter Story
--- NOTE | 2023-02-12 09:52 | ED_ITS ---
HPI - General Adult General Chief complaint: General Medical Stated complaint: high BP Time Seen by Provider: 02/12/23 09:51 Source: patient Mode of arrival: ambulatory Limitations: no limitations History of Present Illness HPI narrative: 37 yo male with history of HTN presents to the ER for the 3rd day in a row for elevated BP, palpitations. He reports compliance with his lisinopril 20 mg and HCTZ 12.5 mg per day. He takes them at 7am. He took his BP today around 8am and it was 190/160 at home. He states he has had some mild chest pressure for the last 2 days along with anxiety, palpitations and low back pain. He was seen here yesterday for the same, labs and EKG were unremarkable. His BP was 140/100s. He states he does not know what his BP usually runs. He has been taking it frequently over the last few days but not much prior to that. He denies headache, dizziness or vision changes. MD complaint: elevated BP and chest pressure Onset (ago): day(s) Location: chest and back Radiation: non-radiation Severity: moderate Severity scale (1-10): 6 Quality: aching Pain Consistency: intermittent Relieving factors: none Exacerbating factors: none Associated symptoms: denies other symptoms Treatments prior to arrival: none Related Data Previous Rx's Medication Instructions Recorded cephalexin 500 mg capsule (Keflex) 500 mg PO QID #28 caps 12/17/20 doxycycline monohydrate 100 mg 100 mg PO BID #20 caps 12/17/20 capsule ibuprofen 600 mg tablet 600 mg PO Q8H PRN pain #20 tabs 02/24/21 penicillin V potassium 500 mg 500 mg PO BID #20 tabs 02/24/21 tablet tramadol 50 mg tablet 50 mg PO BID PRN pain #5 tabs 02/24/21 hydrochlorothiazide 12.5 mg tablet 12.5 mg PO DAILY 14 days #14 tabs 04/19/21 acetaminophen 500 mg tablet 1,000 mg PO QID PRN fever or pain 05/29/21 (Tylenol Extra Strength) #14 tabs amoxicillin 875 mg-potassium 1 tab PO BID 10 days #20 tabs 05/29/21 clavulanate 125 mg tablet (Augmentin) ibuprofen 800 mg tablet 800 mg PO Q8H PRN pain #14 tabs 05/29/21 oxycodone 5 mg tablet 5 mg PO BID PRN pain #10 tabs 05/29/21 omeprazole 40 mg capsule,delayed 40 mg PO DAILY #15 caps 03/11/22 release ondansetron 4 mg disintegrating 4 mg PO BEDTIME PRN nausea and 03/11/22 tablet vomiting 4 days #8 tabs lisinopril 10 mg tablet 10 mg PO DAILY #90 tabs 01/05/23 hydrochlorothiazide 12.5 mg tablet 12.5 mg PO QAM #30 tabs 02/09/23 lisinopril 20 mg tablet 20 mg PO DAILY #30 tabs 02/09/23 Allergies Allergy/AdvReac Type Severity Reaction Status Date / Time No Known Allergies Allergy Verified 02/11/23 07:33 Review of Systems Review of Systems: Yes all other systems are reviewed and are negative [facility] Past Medical History Medical History Diabetes Social History Social History Alcohol intake: never Substance Use Type: Marijuana Advance Directives: No Advance Directives Information Provided: No Physical Exam ED Vital Signs: Vital Signs - 24 hr 02/12/23 09:38 02/12/23 10:16 Temperature 97.0 F Pulse Rate 131 H 105 H Respiratory Rate 17 13 Blood Pressure 152/126 H 133/97 H Pulse Oximetry 100 99 Oxygen Delivery Method Room Air Room Air BMI result Body Mass Index 25.7 Appearance: Alert. Oriented X3. No acute distress. Eyes: Pupils equal, round and reactive to light. ENT: Pharynx normal. Neck: Normal inspection. Neck supple. CVS: regular rhythm, rate low 100s, no appreciated murmur, normal S1/S2 Respiratory: No respiratory distress. Breath sounds normal. Abdomen: Soft and nontender. +BS x4 Skin: Skin warm and dry. Normal skin color. Normal skin turgor. No rashes. Extremities: No lower extremity edema. Neuro: Oriented X 3. No motor deficit. No sensory deficit. Slightly anxious Medical Decision Making Medical Decision Making MDM Narrative: 37 yo male presenting to the ER for evaluation of HTN, palpitations and chest pressure. 3rd ER visit in 3 days. BP 152/126 on arrival w/ HR 131. He is anxious. Repeat vital signs in treatment are improved without any intervention. HR 105, BP 133/97 Repeat labs, including TSH and troponin are unremarkable. Chest pains have been going on/off for a few days with no significant troponemia. EKG without acute ischemic changes, reviewed by Dr. Moore. His BP remains stable here 134/97. HR improved 90s. Tachycardia most likely a nxiety related. Stable for d/c home with outpatient follow up with his PCP. Encouarge to take his BP several hours after taking his meds and to keep a record for his doctor. Differential Diagnosis Differential Diagnoses: The differential diagnosis associated with the presentation includes HTN urgency, HTN emergency, anxiety, palpitations, PVC, anxiety, dehydration, hyperthyroidism, anemia, electrolyte derrangement, less likely ACS Admission/Observation Consideration of admission/observation: Escalation of care including admission/observation considered 3rd visit in 3 days, BP improved without intervention and lab workup unremarkable so patient is stable to go home Lab Data MDM Lab Attestation statement: I reviewed the patient's lab results. 02/12/23 10:13 02/12/23 10:13 Labs: Lab Results 02/12/23 02/12/23 02/12/23 Range/Units 10:13 10:13 10:13 WBC 7.9 (4.8-10.8) X10*3/uL RBC 7.12 H (4.60-5.80) X10*6/uL Hgb 16.2 (14.0-18.0) g/dl Hct 51.3 (42.0-52.0) % MCV 72.1 L (80.0-98.0) fL MCH 22.8 L (27.0-33.0) pg MCHC 31.6 (31.0-36.0) g/dl RDW 13.9 (11.0-16.0) % Plt Count 315 D (160-400) X10*3/uL MPV 10.6 (9.4-12.4) fL Immature Gran % (Auto) 0.1 (0.0-0.4) % Neut % (Auto) 57.8 (45-73) % Lymph % (Auto) 31.4 (20-40) % Starr % (Auto) 9.7 (2-11) % Eos % (Auto) 0.4 (0-4) % Baso % (Auto) 0.6 (0-2) % Lymph # (Auto) 2.5 (1.2-4.9) X10*3/uL Starr # (Auto) 0.8 (0.1-1.2) X10*3/uL Eos # (Auto) 0.0 (0.0-0.4) X10*3/uL Baso # (Auto) 0.1 (0.0-0.2) X10*3/uL Abs Immat Gran (auto) 0.01 (0.00-0.03) X10*3/uL Absolute Neuts (auto) 4.6 (2.0-8.3) x10*3/uL Absolute Nucleated RBC 0.000 (0.0-0.012) X10*3/uL Nucleated RBC % (auto) 0.0 (0.0-0.2) /100WBC Sodium 139 (135-145) mmol/L Potassium 4.5 (3.3-5.1) mmol/L Chloride 104 (96-108) mmol/L Carbon Dioxide 23 (22-29) mmol/L Anion Gap 17 (12-20) BUN 15 (9-16) mg/dL Creatinine 1.11 (0.5-1.4) mg/dL Estim Creat Clear Calc 100.9 Estimated GFR > 60 Random Glucose 243 H (60-115) mg/dL Calcium 9.9 (8.4-10.2) mg/dL Magnesium 1.8 (1.6-2.6) mg/dL Total Bilirubin 0.9 (0.0-1.0) mg/dL Direct Bilirubin 0.2 (0.0-0.5) mg/dL AST 17 (5-37) U/L ALT 23 (0-40) U/L Alkaline Phosphatase 75 (39-117) U/L Troponin I High Sens 13.9 (<3.5-35.0) ng/L Total Protein 8.2 H (6.5-8.0) g/dL Albumin 4.8 (3.5-5.0) g/dL TSH (0.32-4.0) uIU/mL Urine Color Urine Appearance Urine pH (5.0-9.0) Ur Specific [place] (1.005-1.025) Urine Protein (Neg-Trace) mg/dL Urine Glucose (UA) (Negative) mg/dL Urine Ketones (Negative) mg/dL Urine Blood (Negative) Urine Nitrite (Negative) Ur Leukocyte Esterase (Negative) Urine RBC (0-2) /HPF Urine WBC (0-5) /HPF Ur Squamous Epith Cells (0-2) /HPF Urine Bacteria (None Seen) Hyaline Casts (0-2) /LPF 02/12/23 02/12/23 Range/Units 10:13 10:27 WBC (4.8-10.8) X10*3/uL RBC (4.60-5.80) X10*6/uL Hgb (14.0-18.0) g/dl Hct (42.0-52.0) % MCV (80.0-98.0) fL MCH (27.0-33.0) pg MCHC (31.0-36.0) g/dl RDW (11.0-16.0) % Plt Count (160-400) X10*3/uL MPV (9.4-12.4) fL Immature Gran % (Auto) (0.0-0.4) % Neut % (Auto) (45-73) % Lymph % (Auto) (20-40) % Starr % (Auto) (2-11) % Eos % (Auto) (0-4) % Baso % (Auto) (0-2) % Lymph # (Auto) (1.2-4.9) X10*3/uL Starr # (Auto) (0.1-1.2) X10*3/uL Eos # (Auto) (0.0-0.4) X10*3/uL Baso # (Auto) (0.0-0.2) X10*3/uL Abs Immat Gran (auto) (0.00-0.03) X10*3/uL Absolute Neuts (auto) (2.0-8.3) x10*3/uL Absolute Nucleated RBC (0.0-0.012) X10*3/uL Nucleated RBC % (auto) (0.0-0.2) /100WBC Sodium (135-145) mmol/L Potassium (3.3-5.1) mmol/L Chloride (96-108) mmol/L Carbon Dioxide (22-29) mmol/L Anion Gap (12-20) BUN (9-16) mg/dL Creatinine (0.5-1.4) mg/dL Estim Creat Clear Calc Estimated GFR Random Glucose (60-115) mg/dL Calcium (8.4-10.2) mg/dL Magnesium (1.6-2.6) mg/dL Total Bilirubin (0.0-1.0) mg/dL Direct Bilirubin (0.0-0.5) mg/dL AST (5-37) U/L ALT (0-40) U/L Alkaline Phosphatase (39-117) U/L Troponin I High Sens (<3.5-35.0) ng/L Total Protein (6.5-8.0) g/dL Albumin (3.5-5.0) g/dL TSH 0.41 (0.32-4.0) uIU/mL Urine Color Yellow Urine Appearance Clear Urine pH 6.0 (5.0-9.0) Ur Specific [place] 1.025 (1.005-1.025) Urine Protein 30 (1+) H (Neg-Trace) mg/dL Urine Glucose (UA) Negative (Negative) mg/dL Urine Ketones Trace (Negative) mg/dL Urine Blood Negative (Negative) Urine Nitrite Negative (Negative) Ur Leukocyte Esterase Negative (Negative) Urine RBC 0-2 (0-2) /HPF Urine WBC 0-5 (0-5) /HPF Ur Squamous Epith Cells 0-2 (0-2) /HPF Urine Bacteria None Seen (None Seen) Hyaline Casts 0-2 (0-2) /LPF Independent Interpretation I performed an independent interpretation of an: Plain X-Ray Interpretation: Chest x-ray reviewed, no evidence of any infiltrate or effusion. No acute process. EKG with sinus tachycardia, ventricular rate 109 beats per minute, peak T-waves in V2 and V3. T-wave inversions in leads 2, 3, AVF Radiology Impression Discussion of test interpretation with radiology: I have reviewed the radiologist's reading. Radiologist Impression: No acute cardiopulmonary process External Record Review External record reviewed: Outpatient record Chronic Conditions Patient?s care impacted by: Hypertension Critical Care Time Critical Care Time Critical Care Time: No Discharge Plan Discharge Clinical Impression: Hypertension, Anxiety Patient Disposition: Home, Self-Care Instructions: Hypertension and Diabetes (ED) Additional Instructions: Your lab workup today was unremarkable. Your blood pressure improved as the medications started to work. Recommend monitoring your BP at home ONCE per day, several hours AFTER taking your medications. Follow up with your doctor next week. Prescriptions: No Action doxycycline monohydrate 100 mg capsule 100 mg PO BID Qty: 20 0RF cephalexin [Keflex] 500 mg capsule 500 mg PO QID Qty: 28 0RF ibuprofen 600 mg tablet 600 mg PO Q8H PRN (Reason: pain) Qty: 20 0RF penicillin V potassium 500 mg tablet 500 mg PO BID Qty: 20 0RF tramadol 50 mg tablet 50 mg PO BID PRN (Reason: pain) Qty: 5 0RF Rx Instructions: for 3 days hydrochlorothiazide 12.5 mg tablet 12.5 mg PO DAILY 14 Days Qty: 14 0RF ibuprofen 800 mg tablet 800 mg PO Q8H PRN (Reason: pain) Qty: 14 0RF acetaminophen [Tylenol Extra Strength] 500 mg tablet 1,000 mg PO QID PRN (Reason: fever or pain) Qty: 14 0RF amoxicillin-pot clavulanate [Augmentin] 875-125 mg tablet 1 tab PO BID 10 Days Qty: 20 0RF oxycodone 5 mg tablet 5 mg PO BID PRN (Reason: pain) Qty: 10 0RF omeprazole 40 mg capsule,delayed release(DR/EC) 40 mg PO DAILY Qty: 15 0RF ondansetron 4 mg tablet,disintegrating 4 mg PO BEDTIME PRN (Reason: nausea and vomiting) 4 Days Qty: 8 0RF lisinopril 20 mg tablet 20 mg PO DAILY Qty: 30 3RF hydrochlorothiazide 12.5 mg tablet 12.5 mg PO QAM Qty: 30 3RF lisinopril 10 mg tablet 10 mg PO DAILY Qty: 90 1RF
[2023-02-12 10:16] VITALS: BP 133/97; PULSE 105; RESP 13; O2SAT 99
[2023-02-12 10:20] LABS: MANUAL DIFF FLAG NO
[2023-02-12 10:21] LABS: Basophils Absolute Auto 0.1 X10*3/uL (0.0-0.2); Basophils Percent Auto 0.6 % (0-2); Eosinophils Percent Auto 0.4 % (0-4); Hematocrit 51.3 % (42.0-52.0); Hemoglobin 16.2 g/dl (14.0-18.0); Imm Gran Abs Auto 0.01 X10*3/uL (0.00-0.03); Imm Gran Pct Auto 0.1 % (0.0-0.4); Lymphocytes Absolute Auto 2.5 X10*3/uL (1.2-4.9); Lymphocytes Percent Auto 31.4 % (20-40); Mean Corpuscular HGB Conc 31.6 g/dl (31.0-36.0); Mean Corpuscular Hemoglobin 22.8 pg (27.0-33.0); Mean Corpuscular Volume 72.1 fL (80.0-98.0); Mean Platelet Volume 10.6 fL (9.4-12.4); Monocytes Absolute Auto 0.8 X10*3/uL (0.1-1.2); Monocytes Percent Auto 9.7 % (2-11); Neutrophils Absolute Auto 4.6 x10*3/uL (2.0-8.3); Neutrophils Percent Auto 57.8 % (45-73); Platelet Count 315 X10*3/uL (160-400); Red Blood Count 7.12 X10*6/uL (4.60-5.80); Red Cell Distribution Width 13.9 % (11.0-16.0); White Blood Count 7.9 X10*3/uL (4.8-10.8)
[2023-02-12 10:35] LABS: Appearance Urine Clear; Color Urine Yellow; Glucose Urine UA Negative (Negative); Leukocyte Esterase Urine Negative (Negative); Nitrite Urine Negative (Negative); Specific Gravity - Urine 1.025 (1.005-1.025); UMIC TRIGGER UACC YES; Urine Blood Negative (Negative); Urine Ketones Trace mg/dL (Negative); Urine Protein 30 (1+) mg/dL (Neg-Trace)
[2023-02-12 10:40] LABS: Bacteria Urine None Seen (None Seen); Hyaline Casts Urine 0-2 /LPF (0-2); RBC Urine 0-2 /HPF (0-2); Squamous Epithelial Cell Urine 0-2 /HPF (0-2); WBC Urine 0-5 /HPF (0-5)
[2023-02-12 10:44] LABS: Alanine Aminotransferase 23 U/L (0-40); Albumin Level 4.8 g/dL (3.5-5.0); Alkaline Phosphatase 75 U/L (39-117); Anion Gap 17 (12-20); Aspartate Amino Transferase 17 U/L (5-37); Bilirubin Direct 0.2 mg/dL (0.0-0.5); Bilirubin Total 0.9 mg/dL (0.0-1.0); Blood Urea Nitrogen 15 mg/dL (9-16); Calcium 9.9 mg/dL (8.4-10.2); Carbon Dioxide 23 mmol/L (22-29); Chloride 104 mmol/L (96-108); Creatinine Clr Calc Pharmacy 100.9; Estimated Glomerular Filt Rate > 60; Glucose Random 243 mg/dL (60-115); Magnesium 1.8 mg/dL (1.6-2.6); Potassium 4.5 mmol/L (3.3-5.1); Sodium 139 mmol/L (135-145); Total Protein 8.2 g/dL (6.5-8.0)
[2023-02-12 10:50] LABS: Troponin-I High Sensitivity 13.9 ng/L (<3.5-35.0)
[2023-02-12 11:25] LABS: TSH reflex Free T4 0.41 uIU/mL (0.32-4.0)
[2023-02-12 11:33] VITALS: BP 134/96; PULSE 103; RESP 20; O2SAT 98
== END 2023-02-12 11:35 | disposition home or self-care (01) ==
PROVIDERS: Physician Assistant; Emergency Provider Emergency Medicine
DX: F41.9 Anxiety disorder, unspecified (principal); I10 Essential (primary) hypertension; Z79.899 Other long term (current) drug therapy
CPT/HCPCS: 36415; 71045; 80048; 80076; 81001; 83735; 84443; 84484; 85025; 93005; 99283; 99284

== ENCOUNTER 2023-02-14 09:43 | Emergency (ER) | payer MEDICAID, SELFPAY ==
--- NOTE | ~2023-02-14 | XR_ITS ---
EXAMINATION: XR CHEST CLINICAL INFORMATION: Palpitation COMPARISON: Prior chest January 2023 TECHNIQUE: Frontal view of the chest was obtained. FINDINGS: No significant abnormality is noted involving the heart, lungs, mediastinum, bony thorax or soft tissues. XR/XR chest 1V IMPRESSION: Unremarkable examination.
--- NOTE | 2023-02-14 09:46 | ECG_ITS ---
Test Reason : chest pain Blood Pressure : / mmHG Vent. Rate : 115 BPM Atrial Rate : 115 BPM P-R Int : 134 ms QRS Dur : 074 ms QT Int : 312 ms P-R-T Axes : 083 057 039 degrees QTc Int : 431 ms Sinus tachycardia Right atrial enlargement Nonspecific T wave abnormality Abnormal ECG When compared with ECG of 12-FEB-2023 09:52, No significant change was found Referred By: Generic ED Physician Electronically Signed By:BEL VANG MD
[2023-02-14 09:50] VITALS: BP 121/79; PULSE 110; RESP 19; TEMP 36.6; O2SAT 98; BMI 25.7
[2023-02-14 10:01] VITALS: BP 144/86; RESP 14; TEMP 36.8; O2SAT 99
--- NOTE | 2023-02-14 10:14 | ED_ITS ---
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 Nothing trigger patient's palpitation or make it better. No radiating chest p ain. No SOB. Declined using any drugs. Related Data Previous Rx's Medication Instructions Recorded cephalexin 500 mg capsule (Keflex) 500 mg PO QID #28 caps 12/17/20 doxycycline monohydrate 100 mg 100 mg PO BID #20 caps 12/17/20 capsule ibuprofen 600 mg tablet 600 mg PO Q8H PRN pain #20 tabs 02/24/21 penicillin V potassium 500 mg 500 mg PO BID #20 tabs 02/24/21 tablet tramadol 50 mg tablet 50 mg PO BID PRN pain #5 tabs 02/24/21 hydrochlorothiazide 12.5 mg tablet 12.5 mg PO DAILY 14 days #14 tabs 04/19/21 acetaminophen 500 mg tablet 1,000 mg PO QID PRN fever or pain 05/29/21 (Tylenol Extra Strength) #14 tabs amoxicillin 875 mg-potassium 1 tab PO BID 10 days #20 tabs 05/29/21 clavulanate 125 mg tablet (Augmentin) ibuprofen 800 mg tablet 800 mg PO Q8H PRN pain #14 tabs 05/29/21 oxycodone 5 mg tablet 5 mg PO BID PRN pain #10 tabs 05/29/21 omeprazole 40 mg capsule,delayed 40 mg PO DAILY #15 caps 03/11/22 release ondansetron 4 mg disintegrating 4 mg PO BEDTIME PRN nausea and 03/11/22 tablet vomiting 4 days #8 tabs lisinopril 10 mg tablet 10 mg PO DAILY #90 tabs 01/05/23 hydrochlorothiazide 12.5 mg tablet 12.5 mg PO QAM #30 tabs 02/09/23 lisinopril 20 mg tablet 20 mg PO DAILY #30 tabs 02/09/23 Allergies Allergy/AdvReac Type Severity Reaction Status Date / Time No Known Allergies Allergy Verified 02/14/23 09:50 Review of Systems Review of Systems: All other systems are reviewed and are negative Constitutional: Reports as per HPI and Reports no additional constitutional complaints Eyes: Reports as per HPI and Reports no additional eye complaints Reports system reviewed and no additional complaints, except as documented Cardiovascular: Reports as per HPI and Reports no additional cardiovascular complaints Respiratory: Reports as per HPI and Reports no additional respiratory complaints Gastrointestinal: Reports as per HPI and Reports no additional gastrointestinal complaints Genitourinary: Reports no additional female genitourinary complaints Musculoskeletal: Reports no additional musculoskeletal complaints Skin/Breast: Reports system reviewed and no additional complaints, except as docu Psychiatric: Reports no additional psychiatric complaints Endocrine: Reports no additional endocrine complaints Hematologic/Lymphatic: Reports no additional hematologic/lymphatic complaints Allergic/Immunologic: Reports no additional allergic/immunologic complaints Reports system reviewed and no additional complaints, except as documented and R eports Abnormal speech present [facility] Past Medical History Medical History Diabetes Social History Social History Alcohol intake: never Substance Use Type: Marijuana Advance Directives: No Advance Directives Information Provided: No Physical Exam Vital Signs: Vital Signs: Last Vital Signs Temp 98.2 F 02/14/23 10:01 Pulse 110 H 02/14/23 09:50 Resp 14 02/14/23 10:01 BP 144/86 H 02/14/23 10:01 Pulse Ox 99 02/14/23 10:01 O2 Del Method 02/14/23 10:01 BMI result Body Mass Index 25.7 Vital signs have been reviewed as appeared to be correct. Blood pressure normal. Heart rate elevated. Respiration rate normal. Temperature normal. Oxygen saturation normal. Appearance: Alert. Oriented X3. No acute distress. Head: Normal external exam. Normocephalic. Atraumatic. No Nava signs noted. No raccoon eyes noted Eyes: PERRLA. EOMI. Conjunctiva and sclera normal. Eyelids normal. ENT: TM's Normal. Pharynx normal. Uvula midline. Moist mucous membranes. No trismus noted. No drooling noted. No muffled voice noted. Neck: Normal inspection. Neck supple. FROM. No adenopathy. Thyroid Normal. No meningeal signs. No neck mass noted. CVS: Normal heart rate and rhythm. Heart sound normal. No murmurs noted. Pulses normal throughout. Respiratory: No respiratory distress. Painless inspiration. Breath sounds normal. No wheezes/rales/rhonchi noted. Chest nontender. No accessory muscle usage noted or decreased air movement noted. Abdomen: Soft and nontender. Bowel sounds normal in all 4 quadrants. No distention noted. No organomegaly noted. No visible injury noted. Back: No CVA tenderness. Full range of motion noted. Skin: Skin warm and dry. Normal skin color. Normal skin turgor. No rashes/lesions/lacerations noted. Extremities: No lower extremity edema. Extremities exhibit normal range of motion. Extremities nontender. Neuro: Oriented X 3. Cranial nerve exam: II-XII are grossly intact No motor deficit. No sensory deficit. Reflexes normal. Course Course Course Narrative: 37-year-old male is quitting marijuana for the past few days feeling very anxious, patient has been visiting the ED 5 times in the past week concerned about health issue. 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 Medications Administered Discontinued Medications Generic Name Dose Route Start Last Admin Trade Name Freq PRN Reason Stop Dose Admin Sodium Chloride 1,000 mls @ 999 mls/hr 02/14/23 10:07 02/14/23 11:32 Ns IV 02/14/23 11:07 Infused .Q1H1M ONE Infusion Medical Decision Making Differential Diagnosis Differential Diagnoses: The differential diagnosis associated with the presentation includes (Anxiety, drug withdrawal, ACS, electrolyte disturbance, anemia.) Lab Data MDM Lab Attestation statement: I reviewed the patient's lab results. 02/14/23 10:37 02/14/23 10:37 Labs: Lab Results 02/14/23 02/14/23 02/14/23 Range/Units 10:21 10:37 10:37 WBC 8.8 (4.8-10.8) X10*3/uL RBC 6.95 H (4.60-5.80) X10*6/uL Hgb 15.8 (14.0-18.0) g/dl Hct 50.4 (42.0-52.0) % MCV 72.5 L (80.0-98.0) fL MCH 22.7 L (27.0-33.0) pg MCHC 31.3 (31.0-36.0) g/dl RDW 13.2 (11.0-16.0) % Plt Count 295 (160-400) X10*3/uL MPV 10.5 (9.4-12.4) fL Immature Gran % (Auto) 0.2 (0.0-0.4) % Neut % (Auto) 64.2 (45-73) % Lymph % (Auto) 27.4 (20-40) % [place] % (Auto) 7.2 (2-11) % Eos % (Auto) 0.3 (0-4) % Baso % (Auto) 0.7 (0-2) % Lymph # (Auto) 2.4 (1.2-4.9) X10*3/uL [place] # (Auto) 0.6 (0.1-1.2) X10*3/uL Eos # (Auto) 0.0 (0.0-0.4) X10*3/uL Baso # (Auto) 0.1 (0.0-0.2) X10*3/uL Abs Immat Gran (auto) 0.02 (0.00-0.03) X10*3/uL Absolute Neuts (auto) 5.7 (2.0-8.3) x10*3/uL Absolute Nucleated RBC 0.000 (0.0-0.012) X10*3/uL Nucleated RBC % (auto) 0.0 (0.0-0.2) /100WBC Sodium 136 (135-145) mmol/L Potassium 5.5 H D (3.3-5.1) mmol/L Chloride 102 (96-108) mmol/L Carbon Dioxide 22 (22-29) mmol/L Anion Gap 18 (12-20) BUN 24 H (9-16) mg/dL Creatinine 1.20 (0.5-1.4) mg/dL Estim Creat Clear Calc 93.4 Estimated GFR > 60 Random Glucose 183 H (60-115) mg/dL Calcium 10.0 (8.4-10.2) mg/dL Total Bilirubin 1.0 (0.0-1.0) mg/dL Direct Bilirubin 0.3 (0.0-0.5) mg/dL AST 22 (5-37) U/L ALT 25 (0-40) U/L Alkaline Phosphatase 73 (39-117) U/L Troponin I High Sens (<3.5-35.0) ng/L B-Natriuretic Peptide (<100) pg/mL Total Protein 8.2 H (6.5-8.0) g/dL Albumin 4.8 (3.5-5.0) g/dL Lipase 17 (8-78) U/L Influenza Type A (PCR) NEGATIVE (Negative) Influenza Type B (PCR) NEGATIVE (Negative) RSV RNA Qual (PCR) NEGATIVE (Negative) SARS-CoV-2 RNA (RT-PCR) NEGATIVE (Negative) 02/14/23 02/14/23 Range/Units 10:37 10:37 WBC (4.8-10.8) X10*3/uL RBC (4.60-5.80) X10*6/uL Hgb (14.0-18.0) g/dl Hct (42.0-52.0) % MCV (80.0-98.0) fL MCH (27.0-33.0) pg MCHC (31.0-36.0) g/dl RDW (11.0-16.0) % Plt Count (160-400) X10*3/uL MPV (9.4-12.4) fL Immature Gran % (Auto) (0.0-0.4) % Neut % (Auto) (45-73) % Lymph % (Auto) (20-40) % [place] % (Auto) (2-11) % Eos % (Auto) (0-4) % Baso % (Auto) (0-2) % Lymph # (Auto) (1.2-4.9) X10*3/uL [place] # (Auto) (0.1-1.2) X10*3/uL Eos # (Auto) (0.0-0.4) X10*3/uL Baso # (Auto) (0.0-0.2) X10*3/uL Abs Immat Gran (auto) (0.00-0.03) X10*3/uL Absolute Neuts (auto) (2.0-8.3) x10*3/uL Absolute Nucleated RBC (0.0-0.012) X10*3/uL Nucleated RBC % (auto) (0.0-0.2) /100WBC Sodium (135-145) mmol/L Potassium (3.3-5.1) mmol/L Chloride (96-108) mmol/L Carbon Dioxide (22-29) mmol/L Anion Gap (12-20) BUN (9-16) mg/dL Creatinine (0.5-1.4) mg/dL Estim Creat Clear Calc Estimated GFR Random Glucose (60-115) mg/dL Calcium (8.4-10.2) mg/dL Total Bilirubin (0.0-1.0) mg/dL Direct Bilirubin (0.0-0.5) mg/dL AST (5-37) U/L ALT (0-40) U/L Alkaline Phosphatase (39-117) U/L Troponin I High Sens 6.3 D (<3.5-35.0) ng/L B-Natriuretic Peptide < 10 (<100) pg/mL Total Protein (6.5-8.0) g/dL Albumin (3.5-5.0) g/dL Lipase (8-78) U/L Influenza Type A (PCR) (Negative) Influenza Type B (PCR) (Negative) RSV RNA Qual (PCR) (Negative) SARS-CoV-2 RNA (RT-PCR) (Negative) Discharge Plan Discharge Clinical Impression: Palpitation, Chest pain Patient Disposition: Home, Self-Care Instructions: Anxiety (ED) Prescriptions: No Action doxycycline monohydrate 100 mg capsule 100 mg PO BID Qty: 20 0RF cephalexin [Keflex] 500 mg capsule 500 mg PO QID Qty: 28 0RF ibuprofen 600 mg tablet 600 mg PO Q8H PRN (Reason: pain) Qty: 20 0RF penicillin V potassium 500 mg tablet 500 mg PO BID Qty: 20 0RF tramadol 50 mg tablet 50 mg PO BID PRN (Reason: pain) Qty: 5 0RF Rx Instructions: for 3 days hydrochlorothiazide 12.5 mg tablet 12.5 mg PO DAILY 14 Days Qty: 14 0RF ibuprofen 800 mg tablet 800 mg PO Q8H PRN (Reason: pain) Qty: 14 0RF acetaminophen [Tylenol Extra Strength] 500 mg tablet 1,000 mg PO QID PRN (Reason: fever or pain) Qty: 14 0RF amoxicillin-pot clavulanate [Augmentin] 875-125 mg tablet 1 tab PO BID 10 Days Qty: 20 0RF oxycodone 5 mg tablet 5 mg PO BID PRN (Reason: pain) Qty: 10 0RF omeprazole 40 mg capsule,delayed release(DR/EC) 40 mg PO DAILY Qty: 15 0RF ondansetron 4 mg tablet,disintegrating 4 mg PO BEDTIME PRN (Reason: nausea and vomiting) 4 Days Qty: 8 0RF lisinopril 20 mg tablet 20 mg PO DAILY Qty: 30 3RF hydrochlorothiazide 12.5 mg tablet 12.5 mg PO QAM Qty: 30 3RF lisinopril 10 mg tablet 10 mg PO DAILY Qty: 90 1RF Referrals: Asiya Ochoa MD [Primary Care Provider] - Cesar Felix MD [Physician] -
[2023-02-14] MEDS: 0.9 % Sodium Chloride 1,000 ML 999 ML IV (10:38)
[2023-02-14 10:42] LABS: MANUAL DIFF FLAG NO
[2023-02-14 10:48] LABS: Basophils Absolute Auto 0.1 X10*3/uL (0.0-0.2); Basophils Percent Auto 0.7 % (0-2); Eosinophils Percent Auto 0.3 % (0-4); Hematocrit 50.4 % (42.0-52.0); Hemoglobin 15.8 g/dl (14.0-18.0); Imm Gran Abs Auto 0.02 X10*3/uL (0.00-0.03); Imm Gran Pct Auto 0.2 % (0.0-0.4); Lymphocytes Absolute Auto 2.4 X10*3/uL (1.2-4.9); Lymphocytes Percent Auto 27.4 % (20-40); Mean Corpuscular HGB Conc 31.3 g/dl (31.0-36.0); Mean Corpuscular Hemoglobin 22.7 pg (27.0-33.0); Mean Corpuscular Volume 72.5 fL (80.0-98.0); Mean Platelet Volume 10.5 fL (9.4-12.4); Monocytes Absolute Auto 0.6 X10*3/uL (0.1-1.2); Monocytes Percent Auto 7.2 % (2-11); Neutrophils Absolute Auto 5.7 x10*3/uL (2.0-8.3); Neutrophils Percent Auto 64.2 % (45-73); Platelet Count 295 X10*3/uL (160-400); Red Blood Count 6.95 X10*6/uL (4.60-5.80); Red Cell Distribution Width 13.2 % (11.0-16.0); White Blood Count 8.8 X10*3/uL (4.8-10.8)
[2023-02-14 11:07] LABS: Alkaline Phosphatase 73 U/L (39-117); B Type Natriuretic Peptide < 10 pg/mL (<100)
[2023-02-14 11:08] LABS: Alanine Aminotransferase 25 U/L (0-40); Albumin Level 4.8 g/dL (3.5-5.0); Anion Gap 18 (12-20); Aspartate Amino Transferase 22 U/L (5-37); Bilirubin Direct 0.3 mg/dL (0.0-0.5); Blood Urea Nitrogen 24 mg/dL (9-16); Carbon Dioxide 22 mmol/L (22-29); Chloride 102 mmol/L (96-108); Creatinine Clr Calc Pharmacy 93.4; Estimated Glomerular Filt Rate > 60; Glucose Random 183 mg/dL (60-115); Lipase 17 U/L (8-78); Potassium 5.5 mmol/L (3.3-5.1); Sodium 136 mmol/L (135-145); Total Protein 8.2 g/dL (6.5-8.0)
[2023-02-14 11:11] LABS: Troponin-I High Sensitivity 6.3 ng/L (<3.5-35.0)
[2023-02-14 11:13] LABS: Influenza A PCR NEGATIVE (Negative); Influenza B PCR NEGATIVE (Negative); Resp Syncy Virus RNA Qual PCR NEGATIVE (Negative); SARS COV2 PCR INHOUSE NEGATIVE (Negative)
== END 2023-02-14 12:19 | disposition home or self-care (01) ==
PROVIDERS: Emergency Provider Emergency Medicine; PCP Internal Medicine
DX: R00.2 Palpitations (principal); R07.9 Chest pain, unspecified; F41.9 Anxiety disorder, unspecified; Z20.822 Contact with and (suspected) exposure to COVID-19
CPT/HCPCS: 0241U; 36415; 71045; 80048; 80076; 83690; 83880; 84484; 85025; 93005; 99284

== ENCOUNTER 2023-02-18 00:32 | Emergency (ER) | payer MEDICAID, SELFPAY ==
[2023-02-18 01:10] VITALS: BP 136/98; BP 148/90; PULSE 77; PULSE 93; RESP 20; TEMP 36.8; O2SAT 100; O2SAT 97; BMI 53.8
[2023-02-18 01:12] VITALS: BP 135/96; PULSE 78; RESP 16; TEMP 36.7; O2SAT 99; BMI 24.4
[2023-02-18 01:27] LABS: Hematocrit 49.2 % (42.0-52.0); Hemoglobin 15.6 g/dl (14.0-18.0); Mean Corpuscular HGB Conc 31.7 g/dl (31.0-36.0); Mean Corpuscular Hemoglobin 22.6 pg (27.0-33.0); Mean Corpuscular Volume 71.4 fL (80.0-98.0); Mean Platelet Volume 10.1 fL (9.4-12.4); Platelet Count 288 X10*3/uL (160-400); Red Blood Count 6.89 X10*6/uL (4.60-5.80); Red Cell Distribution Width 12.9 % (11.0-16.0); White Blood Count 9.4 X10*3/uL (4.8-10.8)
--- NOTE | 2023-02-18 01:52 | ED.GENADULT ---
HPI - General Adult General Chief complaint: General Medical Stated complaint: Anxiety/Hyperglycemic Time Seen by Provider: 02/18/23 01:51 Source: patient Mode of arrival: ambulatory Limitations: no limitations History of Present Illness HPI narrative: Patient with a new diagnosis of diabetes on metformin with history of anxiety start medication yesterday for blood sugar 240 comes here as blood sugar was 185 at home feeling anxious afraid of taking too many medications in ER blood sugar was 165 Related Data Previous Rx's Medication Instructions Recorded cephalexin 500 mg capsule (Keflex) 500 mg PO QID #28 caps 12/17/20 doxycycline monohydrate 100 mg 100 mg PO BID #20 caps 12/17/20 capsule ibuprofen 600 mg tablet 600 mg PO Q8H PRN pain #20 tabs 02/24/21 penicillin V potassium 500 mg 500 mg PO BID #20 tabs 02/24/21 tablet tramadol 50 mg tablet 50 mg PO BID PRN pain #5 tabs 02/24/21 hydrochlorothiazide 12.5 mg tablet 12.5 mg PO DAILY 14 days #14 tabs 04/19/21 acetaminophen 500 mg tablet 1,000 mg PO QID PRN fever or pain 05/29/21 (Tylenol Extra Strength) #14 tabs amoxicillin 875 mg-potassium 1 tab PO BID 10 days #20 tabs 05/29/21 clavulanate 125 mg tablet (Augmentin) ibuprofen 800 mg tablet 800 mg PO Q8H PRN pain #14 tabs 05/29/21 oxycodone 5 mg tablet 5 mg PO BID PRN pain #10 tabs 05/29/21 omeprazole 40 mg capsule,delayed 40 mg PO DAILY #15 caps 03/11/22 release ondansetron 4 mg disintegrating 4 mg PO BEDTIME PRN nausea and 03/11/22 tablet vomiting 4 days #8 tabs lisinopril 10 mg tablet 10 mg PO DAILY #90 tabs 01/05/23 hydrochlorothiazide 12.5 mg tablet 12.5 mg PO QAM #30 tabs 02/09/23 lisinopril 20 mg tablet 20 mg PO DAILY #30 tabs 02/09/23 Allergies Allergy/AdvReac Type Severity Reaction Status Date / Time No Known Allergies Allergy Verified 02/14/23 09:50 Review of Systems Review of Systems: Yes all other systems are reviewed and are negative PMFSH Past Medical History Medical History Diabetes Social History Social History Alcohol intake: never Substance Use Type: Marijuana Advance Directives: No Advance Directives Information Provided: No Physical Exam ED Vital Signs: Vital Signs - 24 hr 02/18/23 01:10 02/18/23 01:12 Temperature 98.2 F 98.0 F Pulse Rate 77 78 Respiratory Rate 20 16 Blood Pressure 148/90 H 135/96 H Pulse Oximetry 100 99 Oxygen Delivery Method Room Air Room Air BMI result Body Mass Index 24.4 Appearance: Alert. Oriented X3. No acute distress. Anxious ENT: Pharynx normal. Oral Mucosa moist Neck: Normal inspection. Neck supple. CVS: Normal heart rate and rhythm. Pulses normal. Respiratory: No respiratory distress. Equal air entry bilateral, no wheezing/rales/rhonchi Abdomen: Soft and nontender. Bowel sounds are present, no mass palpable, no CVA tenderness Skin: Skin warm and dry. Normal skin color. Normal skin turgor. Extremities: No lower extremity edema. No calf tenderness Neuro: Oriented X 3. No motor deficit. Medical Decision Making Medical Decision Making MDM Narrative: Patient with anxiety with new onset of diabetes blood sugar well controlled advised to continue his medication follow with PCP Lab Data MDM Lab Attestation statement: I reviewed the patient's lab results. 02/18/23 01:22 02/18/23 01:22 Labs: Lab Results 02/18/23 Range/Units 01:22 WBC 9.4 (4.8-10.8) X10*3/uL RBC 6.89 H (4.60-5.80) X10*6/uL Hgb 15.6 (14.0-18.0) g/dl Hct 49.2 (42.0-52.0) % MCV 71.4 L (80.0-98.0) fL MCH 22.6 L (27.0-33.0) pg MCHC 31.7 (31.0-36.0) g/dl RDW 12.9 (11.0-16.0) % Plt Count 288 (160-400) X10*3/uL MPV 10.1 (9.4-12.4) fL Absolute Nucleated RBC 0.000 (0.0-0.012) X10*3/uL Nucleated RBC % (auto) 0.0 (0.0-0.2) /100WBC Discharge Plan Discharge Clinical Impression: Diabetes mellitus, Anxiety Patient Disposition: Home, Self-Care Instructions: Type 2 Diabetes in Adults: New Diagnosis (DC), Anxiety (ED) Additional Instructions: Drink plenty of fluids Take medication as prescribed by your PCP Follow-up with your PCP Report to your pcp if blood sugars higher than 300 Prescriptions: No Action doxycycline monohydrate 100 mg capsule 100 mg PO BID Qty: 20 0RF cephalexin [Keflex] 500 mg capsule 500 mg PO QID Qty: 28 0RF ibuprofen 600 mg tablet 600 mg PO Q8H PRN (Reason: pain) Qty: 20 0RF penicillin V potassium 500 mg tablet 500 mg PO BID Qty: 20 0RF tramadol 50 mg tablet 50 mg PO BID PRN (Reason: pain) Qty: 5 0RF Rx Instructions: for 3 days hydrochlorothiazide 12.5 mg tablet 12.5 mg PO DAILY 14 Days Qty: 14 0RF ibuprofen 800 mg tablet 800 mg PO Q8H PRN (Reason: pain) Qty: 14 0RF acetaminophen [Tylenol Extra Strength] 500 mg tablet 1,000 mg PO QID PRN (Reason: fever or pain) Qty: 14 0RF amoxicillin-pot clavulanate [Augmentin] 875-125 mg tablet 1 tab PO BID 10 Days Qty: 20 0RF oxycodone 5 mg tablet 5 mg PO BID PRN (Reason: pain) Qty: 10 0RF omeprazole 40 mg capsule,delayed release(DR/EC) 40 mg PO DAILY Qty: 15 0RF ondansetron 4 mg tablet,disintegrating 4 mg PO BEDTIME PRN (Reason: nausea and vomiting) 4 Days Qty: 8 0RF lisinopril 20 mg tablet 20 mg PO DAILY Qty: 30 3RF hydrochlorothiazide 12.5 mg tablet 12.5 mg PO QAM Qty: 30 3RF lisinopril 10 mg tablet 10 mg PO DAILY Qty: 90 1RF
[2023-02-18 02:01] LABS: Alanine Aminotransferase 23 U/L (0-40); Albumin Level 4.4 g/dL (3.5-5.0); Alkaline Phosphatase 77 U/L (39-117); Anion Gap 17 (12-20); Aspartate Amino Transferase 15 U/L (5-37); Bilirubin Total 0.5 mg/dL (0.0-1.0); Blood Urea Nitrogen 20 mg/dL (9-16); Calcium 9.6 mg/dL (8.4-10.2); Carbon Dioxide 23 mmol/L (22-29); Chloride 100 mmol/L (96-108); Creatinine Clr Calc Pharmacy 113.2; Estimated Glomerular Filt Rate > 60; Glucose Random 165 mg/dL (60-115); Potassium 4.7 mmol/L (3.3-5.1); Sodium 135 mmol/L (135-145); Total Protein 7.6 g/dL (6.5-8.0)
== END 2023-02-18 03:06 | disposition home or self-care (01) ==
PROVIDERS: Emergency Provider Internal Medicine
DX: F41.1 Generalized anxiety disorder (principal); E11.9 Type 2 diabetes mellitus without complications; F43.0 Acute stress reaction; Z79.899 Other long term (current) drug therapy
CPT/HCPCS: 36415; 80053; 85027; 99282; 99283

== ENCOUNTER 2023-02-18 09:44 | Emergency (ER) | payer MEDICAID, SELFPAY ==
[2023-02-18 09:49] VITALS: BP 150/128; PULSE 115; RESP 16; TEMP 36.3; O2SAT 100; BMI 24.4
--- NOTE | 2023-02-18 10:04 | ED.RECABL ---
HPI - Recheck/Abnormal Lab/Rx General Chief Complaint: Recheck/Abnormal Lab/Rx Stated Complaint: sugar levels high Time Seen by Provider: 02/18/23 09:52 Source: patient, family and old records reviewed Limitations: no limitations History of Present Illness HPI narrative: 37 yo male with recently diagnosed diabetes, started on Metformin this week presents to the ER for evaluation of hyperglycemia when he woke up this morning. Glucose was 340 before eating or drinking anything. He was seen here last night at 2am for hyperglycemia 240. He was anxious. He was discharged after having normal labs. He was told to follow up with his PCP if his glucose was >300. He thought he was told to come to the ER if glucose was >300. He has been compliant with his metformin and reports making dietary modifications at home. He did not eat or drink anything after taking his reading this morning and came right to the hospital. No polyuria or polydipsia. MD complaint: abnormal lab Initial visit (ago): day(s) Returns today for: other Description of abnormal result: glucose 340 at home Symptoms since prior visit: no new symptoms Associated symptoms: none Related Data Previous Rx's Medication Instructions Recorded cephalexin 500 mg capsule (Keflex) 500 mg PO QID #28 caps 12/17/20 doxycycline monohydrate 100 mg 100 mg PO BID #20 caps 12/17/20 capsule ibuprofen 600 mg tablet 600 mg PO Q8H PRN pain #20 tabs 02/24/21 penicillin V potassium 500 mg 500 mg PO BID #20 tabs 02/24/21 tablet tramadol 50 mg tablet 50 mg PO BID PRN pain #5 tabs 02/24/21 hydrochlorothiazide 12.5 mg tablet 12.5 mg PO DAILY 14 days #14 tabs 04/19/21 acetaminophen 500 mg tablet 1,000 mg PO QID PRN fever or pain 05/29/21 (Tylenol Extra Strength) #14 tabs amoxicillin 875 mg-potassium 1 tab PO BID 10 days #20 tabs 05/29/21 clavulanate 125 mg tablet (Augmentin) ibuprofen 800 mg tablet 800 mg PO Q8H PRN pain #14 tabs 05/29/21 oxycodone 5 mg tablet 5 mg PO BID PRN pain #10 tabs 05/29/21 omeprazole 40 mg capsule,delayed 40 mg PO DAILY #15 caps 03/11/22 release ondansetron 4 mg disintegrating 4 mg PO BEDTIME PRN nausea and 03/11/22 tablet vomiting 4 days #8 tabs lisinopril 10 mg tablet 10 mg PO DAILY #90 tabs 01/05/23 hydrochlorothiazide 12.5 mg tablet 12.5 mg PO QAM #30 tabs 02/09/23 lisinopril 20 mg tablet 20 mg PO DAILY #30 tabs 02/09/23 Allergies Allergy/AdvReac Type Severity Reaction Status Date / Time No Known Allergies Allergy Verified 02/14/23 09:50 Review of Systems Review of Systems: Yes all other systems are reviewed and are negative [facility] Past Medical History Medical History Diabetes Social History Social History Alcohol intake: never Substance Use Type: Marijuana Advance Directives: No Advance Directives Information Provided: No Physical Exam Vital Signs: Vital Signs: Last Vital Signs Temp 97.4 F 02/18/23 09:49 Pulse 115 H 02/18/23 09:49 Resp 16 02/18/23 09:49 BP 150/128 H 02/18/23 09:49 Pulse Ox 100 02/18/23 09:49 O2 Del Method Room Air 02/18/23 09:49 BMI result Body Mass Index 24.4 Appearance: Alert. Oriented X3. No acute distress. HEENT: normal inspection Neck: Normal inspection. CVS: Normal heart rate and rhythm. Pulses normal. Respiratory: No respiratory distress. Breath sounds normal. Skin: Skin warm and dry. Normal skin color. Normal skin turgor. No rashes. Extremities: No lower extremity edema. Neuro: Oriented X 3. Anxious, nonfocal. Medical Decision Making Medical Decision Making MDM Narrative: 37-year-old male with history of anxiety, HTN, newly diagnosed diabetes presents to the ER for evaluation hyperglycemia. Glucose was 340 at home before eating or drinking anything. Arrival to the ER glucose improved to 220 without any intervention. He has a follow-up appointment with his primary care doctor next Tuesday. Was just started on metformin 2 days ago. He just started making dietary modifications 2 days ago. He had labs last night that were unremarkable. He arrives to the ER hypertensive and tachycardic, he is anxious and all worked up. He was able to be reassured that he is doing all the right things, has all the right follow-up and that he needs to monitor his glucose at home. He will follow-up with his PCP. At this time is stable for discharge home Differential Diagnosis Differential Diagnoses: The differential diagnosis associated with the presentation includes Hyperglycemia, poorly-controlled diabetes, no evidence of DKA or HHS Lab Data MDM Lab Attestation statement: I reviewed the patient's lab results. Labs: Lab Results 02/18/23 Range/Units 10:01 POC Glucose 220 H (60-115) mg/dL Independent Historian Clinical information obtained from an independent historian. History obtained from or confirmed by: Spouse External Record Review External record reviewed: Outpatient record Prescription Management I considered prescription management with: Other (Consider increasing metformin however this is a brand new medication and dosing can be re-evaluated by his primary care doctor next week) Chronic Conditions Patient?s care impacted by: Diabetes and Hypertension Critical Care Time Critical Care Time Critical Care Time: No Discharge Plan Discharge Clinical Impression: Hyperglycemia due to diabetes mellitus Patient Disposition: Home, Self-Care Instructions: Diabetes and Exercise (ED), Type 2 Diabetes Management for Adults (ED) Additional Instructions: Your blood sugar was 220 today Recommend continuing your metformin AVOID food and drinks high in sugar and carbohydrates. Count your carbohydrates Follow up with your doctor for further management of your diabetes Prescriptions: No Action doxycycline monohydrate 100 mg capsule 100 mg PO BID Qty: 20 0RF cephalexin [Keflex] 500 mg capsule 500 mg PO QID Qty: 28 0RF ibuprofen 600 mg tablet 600 mg PO Q8H PRN (Reason: pain) Qty: 20 0RF penicillin V potassium 500 mg tablet 500 mg PO BID Qty: 20 0RF tramadol 50 mg tablet 50 mg PO BID PRN (Reason: pain) Qty: 5 0RF Rx Instructions: for 3 days hydrochlorothiazide 12.5 mg tablet 12.5 mg PO DAILY 14 Days Qty: 14 0RF ibuprofen 800 mg tablet 800 mg PO Q8H PRN (Reason: pain) Qty: 14 0RF acetaminophen [Tylenol Extra Strength] 500 mg tablet 1,000 mg PO QID PRN (Reason: fever or pain) Qty: 14 0RF amoxicillin-pot clavulanate [Augmentin] 875-125 mg tablet 1 tab PO BID 10 Days Qty: 20 0RF oxycodone 5 mg tablet 5 mg PO BID PRN (Reason: pain) Qty: 10 0RF omeprazole 40 mg capsule,delayed release(DR/EC) 40 mg PO DAILY Qty: 15 0RF ondansetron 4 mg tablet,disintegrating 4 mg PO BEDTIME PRN (Reason: nausea and vomiting) 4 Days Qty: 8 0RF lisinopril 20 mg tablet 20 mg PO DAILY Qty: 30 3RF hydrochlorothiazide 12.5 mg tablet 12.5 mg PO QAM Qty: 30 3RF lisinopril 10 mg tablet 10 mg PO DAILY Qty: 90 1RF Interventions: ED Discharge Assessment Last Done: 02/18/23 10:15 Discharge Date/Time: 02/18/23 10:15
[2023-02-18 10:06] LABS: Glucose, Whole Blood 220 mg/dL (60-115)
--- NOTE | 2023-02-18 10:07 | PC.NURSE ---
Patient with concern for high blood sugar diabetic recently started to befollowed by PCP and taking medication BS 220 provider aware will prepare for discharge
== END 2023-02-18 10:15 | disposition home or self-care (01) ==
PROVIDERS: Emergency Provider Student in an Organized Health Care Education/Training Program
DX: E11.65 Type 2 diabetes mellitus with hyperglycemia (principal); R79.89 Other specified abnormal findings of blood chemistry; Z79.899 Other long term (current) drug therapy
CPT/HCPCS: 82947; 99282

== ENCOUNTER 2023-02-21 16:57 | Emergency (ER) | payer MEDICAID, SELFPAY ==
[2023-02-21 17:07] VITALS: BP 134/80; PULSE 100; RESP 20; TEMP 36.8; O2SAT 99; BMI 24.4
[2023-02-21 17:15] LABS: Glucose, Whole Blood 249 mg/dL (60-115)
--- NOTE | 2023-02-21 17:15 | ED.GENADULT ---
HPI - General Adult General Chief complaint: General Medical Stated complaint: elevated blood sugar Time Seen by Provider: 02/21/23 18:46 Related Data Previous Rx's Medication Instructions Recorded cephalexin 500 mg capsule (Keflex) 500 mg PO QID #28 caps 12/17/20 doxycycline monohydrate 100 mg 100 mg PO BID #20 caps 12/17/20 capsule ibuprofen 600 mg tablet 600 mg PO Q8H PRN pain #20 tabs 02/24/21 penicillin V potassium 500 mg 500 mg PO BID #20 tabs 02/24/21 tablet tramadol 50 mg tablet 50 mg PO BID PRN pain #5 tabs 02/24/21 hydrochlorothiazide 12.5 mg tablet 12.5 mg PO DAILY 14 days #14 tabs 04/19/21 acetaminophen 500 mg tablet 1,000 mg PO QID PRN fever or pain 05/29/21 (Tylenol Extra Strength) #14 tabs amoxicillin 875 mg-potassium 1 tab PO BID 10 days #20 tabs 05/29/21 clavulanate 125 mg tablet (Augmentin) ibuprofen 800 mg tablet 800 mg PO Q8H PRN pain #14 tabs 05/29/21 oxycodone 5 mg tablet 5 mg PO BID PRN pain #10 tabs 05/29/21 omeprazole 40 mg capsule,delayed 40 mg PO DAILY #15 caps 03/11/22 release ondansetron 4 mg disintegrating 4 mg PO BEDTIME PRN nausea and 03/11/22 tablet vomiting 4 days #8 tabs lisinopril 10 mg tablet 10 mg PO DAILY #90 tabs 01/05/23 hydrochlorothiazide 12.5 mg tablet 12.5 mg PO QAM #30 tabs 02/09/23 lisinopril 20 mg tablet 20 mg PO DAILY #30 tabs 02/09/23 Allergies Allergy/AdvReac Type Severity Reaction Status Date / Time No Known Allergies Allergy Verified 02/14/23 09:50 [facility] Past Medical History Medical History Diabetes Social History Social History Alcohol intake: never Substance Use Type: Marijuana Advance Directives: No Advance Directives Information Provided: Yes Physical Exam ED Vital Signs: Vital Signs - 24 hr 02/21/23 17:07 Temperature 98.3 F Pulse Rate 100 Respiratory Rate 20 Blood Pressure 134/80 Pulse Oximetry 99 Oxygen Delivery Method Room Air BMI result Body Mass Index 24.4 Course Course Course Narrative: RME: 37-year-old male presents to the ED concern for hypoglycemia. Patient known diabetic. Patient states this morning glucose was 360. Patient is symptomatic. POC 249. Will do labs Medical Decision Making Lab Data 02/21/23 17:49 02/21/23 17:49 Labs: Lab Results 02/21/23 02/21/23 02/21/23 Range/Units 17:10 17:49 17:49 WBC 7.7 (4.8-10.8) X10*3/uL RBC 6.71 H (4.60-5.80) X10*6/uL Hgb 15.2 (14.0-18.0) g/dl Hct 47.6 (42.0-52.0) % MCV 70.9 L (80.0-98.0) fL MCH 22.7 L (27.0-33.0) pg MCHC 31.9 (31.0-36.0) g/dl RDW 12.5 (11.0-16.0) % Plt Count 271 (160-400) X10*3/uL MPV 10.6 (9.4-12.4) fL Immature Gran % (Auto) 0.3 (0.0-0.4) % Neut % (Auto) 60.0 (45-73) % Lymph % (Auto) 31.0 (20-40) % [place] % (Auto) 7.5 (2-11) % Eos % (Auto) 0.6 (0-4) % Baso % (Auto) 0.6 (0-2) % Lymph # (Auto) 2.4 (1.2-4.9) X10*3/uL [place] # (Auto) 0.6 (0.1-1.2) X10*3/uL Eos # (Auto) 0.1 (0.0-0.4) X10*3/uL Baso # (Auto) 0.1 (0.0-0.2) X10*3/uL Abs Immat Gran (auto) 0.02 (0.00-0.03) X10*3/uL Absolute Neuts (auto) 4.6 (2.0-8.3) x10*3/uL Absolute Nucleated RBC 0.000 (0.0-0.012) X10*3/uL Nucleated RBC % (auto) 0.0 (0.0-0.2) /100WBC Sodium 134 L (135-145) mmol/L Potassium 4.3 (3.3-5.1) mmol/L Chloride 99 (96-108) mmol/L Carbon Dioxide 26 (22-29) mmol/L Anion Gap 13 (12-20) BUN 21 H (9-16) mg/dL Creatinine 1.02 (0.5-1.4) mg/dL Estim Creat Clear Calc 109.8 Estimated GFR > 60 POC Glucose 249 H (60-115) mg/dL Random Glucose 216 H (60-115) mg/dL Calcium 9.4 (8.4-10.2) mg/dL Total Bilirubin 0.4 (0.0-1.0) mg/dL AST 17 (5-37) U/L ALT 23 (0-40) U/L Alkaline Phosphatase 85 (39-117) U/L Total Protein 7.4 (6.5-8.0) g/dL Albumin 4.3 (3.5-5.0) g/dL Acetone, Qual Negative (Negative) Discharge Plan Discharge Clinical Impression: Acute hyperglycemia Patient Disposition: Home, Self-Care Instructions: Diabetic Hyperglycemia (ED) Additional Instructions: Please continue metformin in T can follow-up with your primary physician and postop pain the new prescription. Small frequent meals. No simple sugar. Prescriptions: No Action doxycycline monohydrate 100 mg capsule 100 mg PO BID Qty: 20 0RF cephalexin [Keflex] 500 mg capsule 500 mg PO QID Qty: 28 0RF ibuprofen 600 mg tablet 600 mg PO Q8H PRN (Reason: pain) Qty: 20 0RF penicillin V potassium 500 mg tablet 500 mg PO BID Qty: 20 0RF tramadol 50 mg tablet 50 mg PO BID PRN (Reason: pain) Qty: 5 0RF Rx Instructions: for 3 days hydrochlorothiazide 12.5 mg tablet 12.5 mg PO DAILY 14 Days Qty: 14 0RF ibuprofen 800 mg tablet 800 mg PO Q8H PRN (Reason: pain) Qty: 14 0RF acetaminophen [Tylenol Extra Strength] 500 mg tablet 1,000 mg PO QID PRN (Reason: fever or pain) Qty: 14 0RF amoxicillin-pot clavulanate [Augmentin] 875-125 mg tablet 1 tab PO BID 10 Days Qty: 20 0RF oxycodone 5 mg tablet 5 mg PO BID PRN (Reason: pain) Qty: 10 0RF omeprazole 40 mg capsule,delayed release(DR/EC) 40 mg PO DAILY Qty: 15 0RF ondansetron 4 mg tablet,disintegrating 4 mg PO BEDTIME PRN (Reason: nausea and vomiting) 4 Days Qty: 8 0RF lisinopril 20 mg tablet 20 mg PO DAILY Qty: 30 3RF hydrochlorothiazide 12.5 mg tablet 12.5 mg PO QAM Qty: 30 3RF lisinopril 10 mg tablet 10 mg PO DAILY Qty: 90 1RF Referrals: Physician,Unknown J [Primary Care Provider] - Interventions: ED Discharge Assessment Last Done: 02/21/23 19:27 Discharge Date/Time: 02/21/23 19:28
[2023-02-21 17:53] LABS: MANUAL DIFF FLAG NO
[2023-02-21 18:09] LABS: Alanine Aminotransferase 23 U/L (0-40); Albumin Level 4.3 g/dL (3.5-5.0); Alkaline Phosphatase 85 U/L (39-117); Anion Gap 13 (12-20); Aspartate Amino Transferase 17 U/L (5-37); Bilirubin Total 0.4 mg/dL (0.0-1.0); Blood Urea Nitrogen 21 mg/dL (9-16); Calcium 9.4 mg/dL (8.4-10.2); Carbon Dioxide 26 mmol/L (22-29); Chloride 99 mmol/L (96-108); Creatinine Clr Calc Pharmacy 109.8; Estimated Glomerular Filt Rate > 60; Glucose Random 216 mg/dL (60-115); Potassium 4.3 mmol/L (3.3-5.1); Sodium 134 mmol/L (135-145); Total Protein 7.4 g/dL (6.5-8.0)
[2023-02-21 18:12] LABS: Basophils Absolute Auto 0.1 X10*3/uL (0.0-0.2); Basophils Percent Auto 0.6 % (0-2); Eosinophils Absolute Auto 0.1 X10*3/uL (0.0-0.4); Eosinophils Percent Auto 0.6 % (0-4); Hematocrit 47.6 % (42.0-52.0); Hemoglobin 15.2 g/dl (14.0-18.0); Imm Gran Abs Auto 0.02 X10*3/uL (0.00-0.03); Imm Gran Pct Auto 0.3 % (0.0-0.4); Lymphocytes Absolute Auto 2.4 X10*3/uL (1.2-4.9); Mean Corpuscular HGB Conc 31.9 g/dl (31.0-36.0); Mean Corpuscular Hemoglobin 22.7 pg (27.0-33.0); Mean Corpuscular Volume 70.9 fL (80.0-98.0); Mean Platelet Volume 10.6 fL (9.4-12.4); Monocytes Absolute Auto 0.6 X10*3/uL (0.1-1.2); Monocytes Percent Auto 7.5 % (2-11); Neutrophils Absolute Auto 4.6 x10*3/uL (2.0-8.3); Platelet Count 271 X10*3/uL (160-400); Red Blood Count 6.71 X10*6/uL (4.60-5.80); Red Cell Distribution Width 12.5 % (11.0-16.0); White Blood Count 7.7 X10*3/uL (4.8-10.8)
[2023-02-21 18:48] LABS: Acetone, serum QL Negative (Negative)
--- NOTE | 2023-02-21 19:11 | ED_ITS ---
HPI - General Adult General Chief complaint: General Medical Stated complaint: elevated blood sugar Time Seen by Provider: 02/21/23 18:46 History of Present Illness HPI narrative: Patient is a 36-year-old male with a history of diabetes. Baseline is on metformin. Presented today because his sugar was in the 300. Patient has no symptoms. No chest pain or shortness breath no nausea no vomiting. Patient from home. Been taking metformin. Recently patient was switched to a different medication but he was unable to obtain it for now. No coughing or congestion or upper story symptoms. No diaphoresis Related Data Previous Rx's Medication Instructions Recorded cephalexin 500 mg capsule (Keflex) 500 mg PO QID #28 caps 12/17/20 doxycycline monohydrate 100 mg 100 mg PO BID #20 caps 12/17/20 capsule ibuprofen 600 mg tablet 600 mg PO Q8H PRN pain #20 tabs 02/24/21 penicillin V potassium 500 mg 500 mg PO BID #20 tabs 02/24/21 tablet tramadol 50 mg tablet 50 mg PO BID PRN pain #5 tabs 02/24/21 hydrochlorothiazide 12.5 mg tablet 12.5 mg PO DAILY 14 days #14 tabs 04/19/21 acetaminophen 500 mg tablet 1,000 mg PO QID PRN fever or pain 05/29/21 (Tylenol Extra Strength) #14 tabs amoxicillin 875 mg-potassium 1 tab PO BID 10 days #20 tabs 05/29/21 clavulanate 125 mg tablet (Augmentin) ibuprofen 800 mg tablet 800 mg PO Q8H PRN pain #14 tabs 05/29/21 oxycodone 5 mg tablet 5 mg PO BID PRN pain #10 tabs 05/29/21 omeprazole 40 mg capsule,delayed 40 mg PO DAILY #15 caps 03/11/22 release ondansetron 4 mg disintegrating 4 mg PO BEDTIME PRN nausea and 03/11/22 tablet vomiting 4 days #8 tabs lisinopril 10 mg tablet 10 mg PO DAILY #90 tabs 01/05/23 hydrochlorothiazide 12.5 mg tablet 12.5 mg PO QAM #30 tabs 02/09/23 lisinopril 20 mg tablet 20 mg PO DAILY #30 tabs 02/09/23 Allergies Allergy/AdvReac Type Severity Reaction Status Date / Time No Known Allergies Allergy Verified 02/14/23 09:50 Review of Systems Review of Systems: Positive elevated sugar Yes all other systems are reviewed and are negative [facility] Past Medical History Attestation statement: The following information was validated with the patient. Medical History Diabetes Social History Social History Alcohol intake: never Substance Use Type: Marijuana Advance Directives: No Advance Directives Information Provided: No Physical Exam ED Vital Signs: Vital Signs - 24 hr 02/21/23 17:07 Temperature 98.3 F Pulse Rate 100 Respiratory Rate 20 Blood Pressure 134/80 Pulse Oximetry 99 Oxygen Delivery Method Room Air BMI result Body Mass Index 24.4 Appearance: Alert. Oriented X3. No acute distress. Eyes: Pupils equal, round and reactive to light. ENT: Pharynx normal. Neck: Normal inspection. Neck supple. No lymph nodes noted. No crepitus CVS: Normal heart rate and rhythm. Pulses normal. Normal S1 and S2 Respiratory: No respiratory distress. Breath sounds normal. No Wheezing. No rales Abdomen: Soft and nontender. No rigidity. No distention. good BS x4 Skin: Skin warm and dry. Normal skin color. Normal skin turgor. Extremities: No lower extremity edema. Neurovascular intact to all extremities. No Lacerations. No Rash Neuro: Oriented X 3. No motor deficit. No sensory deficit. Moving all extermities. No slurred speech Medical Decision Making Medical Decision Making [facility] Narrative: Patient's sugar elevated over 300. Electrolytes showed no anion gap. Recheck s ugar today in the emergency department is 216. Patient has no symptoms. Asked patient to take his medication. Closely follow up on an outpatient basis. In stable condition. Differential Diagnosis Differential Diagnoses: The differential diagnosis associated with the presentation includes Diabetic ketoacidosis, hyperglycemia Lab Data [facility] Lab Attestation statement: I reviewed the patient's lab results. 02/21/23 17:49 02/21/23 17:49 Labs: Lab Results 02/21/23 02/21/23 02/21/23 Range/Units 17:10 17:49 17:49 WBC 7.7 (4.8-10.8) X10*3/uL RBC 6.71 H (4.60-5.80) X10*6/uL Hgb 15.2 (14.0-18.0) g/dl Hct 47.6 (42.0-52.0) % MCV 70.9 L (80.0-98.0) fL MCH 22.7 L (27.0-33.0) pg MCHC 31.9 (31.0-36.0) g/dl RDW 12.5 (11.0-16.0) % Plt Count 271 (160-400) X10*3/uL MPV 10.6 (9.4-12.4) fL Immature Gran % (Auto) 0.3 (0.0-0.4) % Neut % (Auto) 60.0 (45-73) % Lymph % (Auto) 31.0 (20-40) % [place] % (Auto) 7.5 (2-11) % Eos % (Auto) 0.6 (0-4) % Baso % (Auto) 0.6 (0-2) % Lymph # (Auto) 2.4 (1.2-4.9) X10*3/uL [place] # (Auto) 0.6 (0.1-1.2) X10*3/uL Eos # (Auto) 0.1 (0.0-0.4) X10*3/uL Baso # (Auto) 0.1 (0.0-0.2) X10*3/uL Abs Immat Gran (auto) 0.02 (0.00-0.03) X10*3/uL Absolute Neuts (auto) 4.6 (2.0-8.3) x10*3/uL Absolute Nucleated RBC 0.000 (0.0-0.012) X10*3/uL Nucleated RBC % (auto) 0.0 (0.0-0.2) /100WBC Sodium 134 L (135-145) mmol/L Potassium 4.3 (3.3-5.1) mmol/L Chloride 99 (96-108) mmol/L Carbon Dioxide 26 (22-29) mmol/L Anion Gap 13 (12-20) BUN 21 H (9-16) mg/dL Creatinine 1.02 (0.5-1.4) mg/dL Estim Creat Clear Calc 109.8 Estimated GFR > 60 POC Glucose 249 H (60-115) mg/dL Random Glucose 216 H (60-115) mg/dL Calcium 9.4 (8.4-10.2) mg/dL Total Bilirubin 0.4 (0.0-1.0) mg/dL AST 17 (5-37) U/L ALT 23 (0-40) U/L Alkaline Phosphatase 85 (39-117) U/L Total Protein 7.4 (6.5-8.0) g/dL Albumin 4.3 (3.5-5.0) g/dL Acetone, Qual Negative (Negative) Chronic Conditions Patient?s care impacted by: Diabetes Discharge Plan Discharge Clinical Impression: Acute hyperglycemia Patient Disposition: Home, Self-Care Instructions: Diabetic Hyperglycemia (ED) Additional Instructions: Please continue metformin in T can follow-up with your primary physician and postop pain the new prescription. Small frequent meals. No simple sugar. Prescriptions: No Action doxycycline monohydrate 100 mg capsule 100 mg PO BID Qty: 20 0RF cephalexin [Keflex] 500 mg capsule 500 mg PO QID Qty: 28 0RF ibuprofen 600 mg tablet 600 mg PO Q8H PRN (Reason: pain) Qty: 20 0RF penicillin V potassium 500 mg tablet 500 mg PO BID Qty: 20 0RF tramadol 50 mg tablet 50 mg PO BID PRN (Reason: pain) Qty: 5 0RF Rx Instructions: for 3 days hydrochlorothiazide 12.5 mg tablet 12.5 mg PO DAILY 14 Days Qty: 14 0RF ibuprofen 800 mg tablet 800 mg PO Q8H PRN (Reason: pain) Qty: 14 0RF acetaminophen [Tylenol Extra Strength] 500 mg tablet 1,000 mg PO QID PRN (Reason: fever or pain) Qty: 14 0RF amoxicillin-pot clavulanate [Augmentin] 875-125 mg tablet 1 tab PO BID 10 Days Qty: 20 0RF oxycodone 5 mg tablet 5 mg PO BID PRN (Reason: pain) Qty: 10 0RF omeprazole 40 mg capsule,delayed release(DR/EC) 40 mg PO DAILY Qty: 15 0RF ondansetron 4 mg tablet,disintegrating 4 mg PO BEDTIME PRN (Reason: nausea and vomiting) 4 Days Qty: 8 0RF lisinopril 20 mg tablet 20 mg PO DAILY Qty: 30 3RF hydrochlorothiazide 12.5 mg tablet 12.5 mg PO QAM Qty: 30 3RF lisinopril 10 mg tablet 10 mg PO DAILY Qty: 90 1RF Referrals: Physician,Unknown J [Primary Care Provider] -
== END 2023-02-21 19:28 | disposition home or self-care (01) ==
PROVIDERS: Physician Assistant; Emergency Provider Emergency Medicine Emergency Medical Services
DX: E11.65 Type 2 diabetes mellitus with hyperglycemia (principal); Z79.899 Other long term (current) drug therapy
CPT/HCPCS: 36415; 80053; 82009; 82947; 85025; 99282; 99283

== ENCOUNTER 2023-02-21 23:12 | Emergency (ER) | payer MEDICAID, SELFPAY ==
[2023-02-21 23:17] VITALS: BP 131/88; PULSE 86; RESP 18; TEMP 36.6; O2SAT 100; BMI 24.4
--- NOTE | 2023-02-22 00:24 | PC.NURSE ---
pt not in waiting room, unwitnessed depart, pt not present for ekg and labs work. pt was here yesterday and seen by provider.
== END 2023-02-22 00:32 | disposition left against medical advice (07) ==
PROVIDERS: Emergency Provider Emergency Medicine; PCP Internal Medicine
DX: R07.89 Other chest pain (principal)
CPT/HCPCS: 99281

== ENCOUNTER 2023-03-02 00:29 | Emergency (ER) | payer MEDICAID, SELFPAY ==
--- NOTE | ~2023-03-02 | XR_ITS ---
EXAMINATION: XR CHEST CLINICAL INFORMATION: Chest pain COMPARISON: 02/14/2023 TECHNIQUE: Frontal view of the chest was obtained. FINDINGS: Normal symmetric lung volumes. No parenchymal consolidation. No pleural effusion. No pneumothorax. Cardiomediastinal silhouette and pulmonary vascularity are within normal limits. No acute osseous abnormalities. XR/XR chest 1V IMPRESSION: Clear lungs
--- NOTE | 2023-03-02 00:32 | ECG_ITS ---
Test Reason : CHEST PAIN Blood Pressure : / mmHG Vent. Rate : 072 BPM Atrial Rate : 072 BPM P-R Int : 186 ms QRS Dur : 092 ms QT Int : 380 ms P-R-T Axes : 061 040 -22 degrees QTc Int : 416 ms Normal sinus rhythm Cannot rule out Anterior infarct , age undetermined T wave abnormality, consider inferior ischemia and lateral ischemia Abnormal ECG When compared with ECG of 14-FEB-2023 09:47, Vent. rate has decreased BY 43 BPM Inverted T waves have replaced nonspecific T wave abnormality in Inferior leads Referred By: Generic ED Physician Electronically Signed By:Hunter Story
--- NOTE | 2023-03-02 00:46 | MHC.EDTECH ---
PATIENT EKG DONE AND WAS READ BY PROVIDER .
[2023-03-02 01:18] VITALS: BP 128/87; PULSE 74; RESP 16; TEMP 36.8; O2SAT 99; BMI 24.4
[2023-03-02 01:34] LABS: Basophils Percent Auto 0.6 % (0-2); Eosinophils Absolute Auto 0.1 X10*3/uL (0.0-0.4); Eosinophils Percent Auto 2.2 % (0-4); Hematocrit 40.9 % (42.0-52.0); Imm Gran Abs Auto 0.01 X10*3/uL (0.00-0.03); Imm Gran Pct Auto 0.2 % (0.0-0.4); Lymphocytes Absolute Auto 3.1 X10*3/uL (1.2-4.9); Lymphocytes Percent Auto 47.2 % (20-40); MANUAL DIFF FLAG NO; Mean Corpuscular HGB Conc 31.8 g/dl (31.0-36.0); Mean Corpuscular Hemoglobin 22.4 pg (27.0-33.0); Mean Corpuscular Volume 70.5 fL (80.0-98.0); Mean Platelet Volume 10.8 fL (9.4-12.4); Monocytes Absolute Auto 0.5 X10*3/uL (0.1-1.2); Monocytes Percent Auto 8.1 % (2-11); Neutrophils Absolute Auto 2.7 x10*3/uL (2.0-8.3); Neutrophils Percent Auto 41.7 % (45-73); Platelet Count 233 X10*3/uL (160-400); Red Cell Distribution Width 12.5 % (11.0-16.0); White Blood Count 6.5 X10*3/uL (4.8-10.8)
[2023-03-02 01:52] LABS: Alanine Aminotransferase 25 U/L (0-40); Albumin Level 4.2 g/dL (3.5-5.0); Alkaline Phosphatase 89 U/L (39-117); Anion Gap 17 (12-20); Aspartate Amino Transferase 19 U/L (5-37); Bilirubin Total 0.3 mg/dL (0.0-1.0); Blood Urea Nitrogen 24 mg/dL (9-16); Calcium 9.5 mg/dL (8.4-10.2); Carbon Dioxide 23 mmol/L (22-29); Chloride 103 mmol/L (96-108); Creatinine Clr Calc Pharmacy 119.2; Estimated Glomerular Filt Rate > 60; Glucose Random 120 mg/dL (60-115); Potassium 4.5 mmol/L (3.3-5.1); Sodium 138 mmol/L (135-145)
[2023-03-02 01:59] LABS: Troponin-I High Sensitivity < 2.7 ng/L (<3.5-35.0)
[2023-03-02 02:03] VITALS: BP 133/85; PULSE 68; RESP 19; TEMP 36.4; O2SAT 98
--- NOTE | 2023-03-02 02:05 | ED.CHESTPAIN ---
HPI - Chest Pain General Chief Complaint: Chest Pain Stated Complaint: chest pain Time Seen by Provider: 03/02/23 01:54 Source: patient Mode of arrival: ambulatory Limitations: no limitations History of Present Illness HPI narrative: Patient diabetic, hypertension comes here for pain in left side of the chest started at 14:00 but slightly heavy pain lasts for few minutes off and on no relation with exertion no shortness of breath history of anxiety anxious no cough no near syncope/syncope felt slightly dizzy never had similar pain in the past Related Data Previous Rx's Medication Instructions Recorded cephalexin 500 mg capsule (Keflex) 500 mg PO QID #28 caps 12/17/20 doxycycline monohydrate 100 mg 100 mg PO BID #20 caps 12/17/20 capsule ibuprofen 600 mg tablet 600 mg PO Q8H PRN pain #20 tabs 02/24/21 penicillin V potassium 500 mg 500 mg PO BID #20 tabs 02/24/21 tablet tramadol 50 mg tablet 50 mg PO BID PRN pain #5 tabs 02/24/21 hydrochlorothiazide 12.5 mg tablet 12.5 mg PO DAILY 14 days #14 tabs 04/19/21 acetaminophen 500 mg tablet 1,000 mg PO QID PRN fever or pain 05/29/21 (Tylenol Extra Strength) #14 tabs amoxicillin 875 mg-potassium 1 tab PO BID 10 days #20 tabs 05/29/21 clavulanate 125 mg tablet (Augmentin) ibuprofen 800 mg tablet 800 mg PO Q8H PRN pain #14 tabs 05/29/21 oxycodone 5 mg tablet 5 mg PO BID PRN pain #10 tabs 05/29/21 omeprazole 40 mg capsule,delayed 40 mg PO DAILY #15 caps 03/11/22 release ondansetron 4 mg disintegrating 4 mg PO BEDTIME PRN nausea and 03/11/22 tablet vomiting 4 days #8 tabs lisinopril 10 mg tablet 10 mg PO DAILY #90 tabs 01/05/23 hydrochlorothiazide 12.5 mg tablet 12.5 mg PO QAM #30 tabs 02/09/23 lisinopril 20 mg tablet 20 mg PO DAILY #30 tabs 02/09/23 Allergies Allergy/AdvReac Type Severity Reaction Status Date / Time No Known Allergies Allergy Verified 02/14/23 09:50 Review of Systems Review of Systems: Yes all other systems are reviewed and are negative [facility] Past Medical History Medical History Diabetes Social History Social History Alcohol intake: never Substance Use Type: Marijuana Advance Directives: No Advance Directives Information Provided: Yes Physical Exam Vital Signs: Vital Signs: Last Vital Signs Temp 97.5 F 03/02/23 02:03 Pulse 68 03/02/23 02:03 Resp 19 03/02/23 02:03 BP 133/85 03/02/23 02:03 Pulse Ox 98 03/02/23 02:03 O2 Del Method Room Air 03/02/23 02:03 BMI result Body Mass Index 24.4 Appearance: Alert. Oriented X3. No acute distress. Eyes: No pallor/ icterus ENT: Pharynx normal. Oral Mucosa moist Neck: Normal inspection. Neck supple. CVS: Normal heart rate and rhythm. Pulses normal. Respiratory: No respiratory distress. Equal air entry bilateral, no wheezing/rales/rhonchi Abdomen: Soft and nontender. Bowel sounds are present, no mass palpable, no CVA tenderness Skin: Skin warm and dry. Normal skin color. Normal skin turgor. Extremities: No lower extremity edema. No calf tenderness Neuro: Oriented X 3. No motor deficit. No sensory deficit.No cerebellar signs , cranial nerves II-XII intact Medical Decision Making Medical Decision Making MDM Narrative: Pain with atypical chest pain no acute EKG changes troponin negative will discharge patient back Lab Data [facility] Lab Attestation statement: I reviewed the patient's lab results. 03/02/23 01:29 03/02/23 01:29 Labs: Lab Results 03/02/23 03/02/23 03/02/23 Range/Units 01:29 01:29 01:29 WBC 6.5 (4.8-10.8) X10*3/uL RBC 5.80 (4.60-5.80) X10*6/uL Hgb 13.0 L (14.0-18.0) g/dl Hct 40.9 L (42.0-52.0) % MCV 70.5 L (80.0-98.0) fL MCH 22.4 L (27.0-33.0) pg MCHC 31.8 (31.0-36.0) g/dl RDW 12.5 (11.0-16.0) % Plt Count 233 (160-400) X10*3/uL MPV 10.8 (9.4-12.4) fL Immature Gran % (Auto) 0.2 (0.0-0.4) % Neut % (Auto) 41.7 L (45-73) % Lymph % (Auto) 47.2 H (20-40) % [place] % (Auto) 8.1 (2-11) % Eos % (Auto) 2.2 (0-4) % Baso % (Auto) 0.6 (0-2) % Lymph # (Auto) 3.1 (1.2-4.9) X10*3/uL [place] # (Auto) 0.5 (0.1-1.2) X10*3/uL Eos # (Auto) 0.1 (0.0-0.4) X10*3/uL Baso # (Auto) 0.0 (0.0-0.2) X10*3/uL Abs Immat Gran (auto) 0.01 (0.00-0.03) X10*3/uL Absolute Neuts (auto) 2.7 (2.0-8.3) x10*3/uL Absolute Nucleated RBC 0.000 (0.0-0.012) X10*3/uL Nucleated RBC % (auto) 0.0 (0.0-0.2) /100WBC Sodium 138 (135-145) mmol/L Potassium 4.5 (3.3-5.1) mmol/L Chloride 103 (96-108) mmol/L Carbon Dioxide 23 (22-29) mmol/L Anion Gap 17 (12-20) BUN 24 H (9-16) mg/dL Creatinine 0.94 (0.5-1.4) mg/dL Estim Creat Clear Calc 119.2 Estimated GFR > 60 Random Glucose 120 H (60-115) mg/dL Calcium 9.5 (8.4-10.2) mg/dL Total Bilirubin 0.3 (0.0-1.0) mg/dL AST 19 (5-37) U/L ALT 25 (0-40) U/L Alkaline Phosphatase 89 (39-117) U/L Troponin I High Sens < 2.7 D (<3.5-35.0) ng/L Total Protein 7.0 (6.5-8.0) g/dL Albumin 4.2 (3.5-5.0) g/dL Independent Interpretation I performed an independent interpretation of an: EKG Interpretation: Normal sinus rhythm heart rate 72 beats per minute nonspecific T-wave changes no acute ischemia normal intervals Discharge Plan Discharge Clinical Impression: Atypical chest pain Patient Disposition: Home, Self-Care Instructions: Chest Pain (ED) Additional Instructions: Your chest pain is likely noncardiac Follow with PCP if any concern Prescriptions: No Action doxycycline monohydrate 100 mg capsule 100 mg PO BID Qty: 20 0RF cephalexin [Keflex] 500 mg capsule 500 mg PO QID Qty: 28 0RF ibuprofen 600 mg tablet 600 mg PO Q8H PRN (Reason: pain) Qty: 20 0RF penicillin V potassium 500 mg tablet 500 mg PO BID Qty: 20 0RF tramadol 50 mg tablet 50 mg PO BID PRN (Reason: pain) Qty: 5 0RF Rx Instructions: for 3 days hydrochlorothiazide 12.5 mg tablet 12.5 mg PO DAILY 14 Days Qty: 14 0RF ibuprofen 800 mg tablet 800 mg PO Q8H PRN (Reason: pain) Qty: 14 0RF acetaminophen [Tylenol Extra Strength] 500 mg tablet 1,000 mg PO QID PRN (Reason: fever or pain) Qty: 14 0RF amoxicillin-pot clavulanate [Augmentin] 875-125 mg tablet 1 tab PO BID 10 Days Qty: 20 0RF oxycodone 5 mg tablet 5 mg PO BID PRN (Reason: pain) Qty: 10 0RF omeprazole 40 mg capsule,delayed release(DR/EC) 40 mg PO DAILY Qty: 15 0RF ondansetron 4 mg tablet,disintegrating 4 mg PO BEDTIME PRN (Reason: nausea and vomiting) 4 Days Qty: 8 0RF lisinopril 20 mg tablet 20 mg PO DAILY Qty: 30 3RF hydrochlorothiazide 12.5 mg tablet 12.5 mg PO QAM Qty: 30 3RF lisinopril 10 mg tablet 10 mg PO DAILY Qty: 90 1RF Interventions: ED Discharge Assessment Last Done: 03/02/23 02:29 Discharge Date/Time: 03/02/23 02:30
== END 2023-03-02 02:30 | disposition home or self-care (01) ==
PROVIDERS: Emergency Provider Internal Medicine
DX: R07.89 Other chest pain (principal); F41.9 Anxiety disorder, unspecified; Z79.899 Other long term (current) drug therapy
CPT/HCPCS: 36415; 71045; 80053; 84484; 85025; 93005; 99283; 99284

== ENCOUNTER → 2023-04-13 08:33 | Outpatient (BNVA) | payer MEDICAID, SELFPAY | PROVIDERS: PCP Internal Medicine; Referring Provider Registered Nurse; Visit Provider Internal Medicine | DX: R07.2 Precordial pain (principal); I10 Essential (primary) hypertension; R94.31 Abnormal electrocardiogram [ECG] [EKG]; E11.9 Type 2 diabetes mellitus without complications; Z79.899 Other long term (current) drug therapy | CPT/HCPCS: 99202 ==

== ENCOUNTER → 2023-04-26 14:45 | Outpatient (REF) | payer MEDICAID, SELFPAY ==
--- NOTE | 2023-04-26 14:47 | CA_ITS ---
Transthoracic Echocardiogram Patient (Last, First, Middle): Raji Nagel, Gender: Male Date of : 1985 Age: 38 Procedure Date: 04/26/2023 Procedure Type: Transthoracic Echocardiogram Location: OP Height: 182.88 cm Weight: 83.92 kg BSA: 2.06 m2 Heart Rate: bpm BP: 114 / 68 mmHg County [employer] Welfare: [place] Referring MD: Cesar Felix MD Clip Wrapper: Frederic Huizar MD Symptoms: I25.10 - Atherosclerotic heart disease of [place] coronary artery without... Study Quality: Adequate ECG Rhythm: Sinus Conclusions: - Essentially normal study Findings Left Ventricle Normal left ventricular size, thickness, and systolic function. The visually estimated ejection fraction is between 60-65%. Spectral Doppler is indicative of a normal filling pattern. Peak GLS is -17%, which is borderline low. Right Ventricle Normal right ventricular cavity size and systolic function. Atria Both atria are normal in size. There is no evidence of interatrial shunt. Aortic Valve Normal aortic valve structure and function. There is no aortic valve stenosis. There is no aortic valve regurgitation. Mitral Valve Normal mitral valve structure and function. There is trace mitral valve regurgitation. There is no mitral valve stenosis. Pulmonic Valve The pulmonic valve is likely normal. Tricuspid Valve Likely normal tricuspid valve structure and function. Tricuspid regurgitation envelope is inadequate for calculation of right ventricular systolic pressure. Normal right atrial pressure. Great Vessels All visible segments of the aorta are normal in size. The pulmonary artery was not well visualized. Venous The inferior vena cava is normal in size and collapses greater than 50% with inspiration. Pericardium/Pleural There is no evidence of pericardial effusion. Prior Study Comparison No prior study available for comparison. Measurements 2D Linear Measurements IVSd: 1.06 0.6-0.9/0.6-1.0 cm LVIDd: 4.23 3.9-5.3/4.2-5.9 cm LVIDd Index: 2.05 2.4-3.2/2.2-3.1 cm/m2 LVIDs: 2.83 2.0-3.6 cm LVPWd: 1.08 0.7-1.1 cm LA Diam: 3.00 2.7-3.8/3.0-4.0 cm LAIDs Index: 1.46 1.5-2.3 cm/m2 LV Mass: 190.10 67-162/88-224 g LV Mass Index: 92.28 43-95/49-115 g/m2 LVOT Diam: 2.20 3.0+(-)1.3 cm 2D Systolic Function EF 4C: 68.60 >55% EF 2C: 63.60 >55% EF BiP: 65.00 >55% Mitral Valve MV Pk E: 0.60 MV PK A: 0.57 MV Decel Time: 309.00 E/A: 1.00 E'Lateral: 10.40 E'Medial: 7.62 E/E' Med: 7.90 E/E' Lat: 5.80 PHT: 90.00 MVA PHT: 2.44 Decel [place]: 1.94 Aortic Valve AoV Pk Greg: 1.21 AoV Mn Greg: 0.97 AoV VTI: 0.23 AoV Pk Grad: 6.00 Aov Mn Grad: 4.00 MEDHAT Cont.VTI: 3.39 LVOT LVOT Pk Greg: 1.15 LVOT Mn Greg: 0.78 LVOT VTI: 0.21 LVOT Pk Grad: 5.00 LVOT Mn Grad: 3.00 LVOT Diam: 2.20 LVOT Area: 3.80 Diastolic Function MV Pk E: 0.60 MV Pk A: 0.57 E/A: 1.00 E'Medial: 7.62 E/E' Med: 7.90 E' Laterial: 10.40 E/E' Lat: 5.80 Right Ventricle TAPSE (mm): 23.50 TVS' Greg: 13.20 Tricuspid Valve RA Press: 3.00 Great Vessels Aorta Sinus of Valsalva: 3.14 2.0-3.[address] [place]: 2.49 1.7-3.4 cm Ao Asc: 2.80 2.1-3.4 cm Ao Arch: 2.50 Updated in Other Vendor System with Status of Final Frederic Huizar MD electronically signed on 04/27/2023 4:55:56 PM with status of Final
== END ==
LOC: HO.CARD 14:45
PROVIDERS: Visit Provider Internal Medicine
DX: R07.2 Precordial pain (principal); I25.10 Atherosclerotic heart disease of native coronary artery without angina pectoris
CPT/HCPCS: 93306; 93356

== ENCOUNTER → 2023-05-23 10:54 | Outpatient (REF) | payer MEDICAID, SELFPAY ==
--- NOTE | 2023-05-23 10:56 | CA_ITS ---
Acquisition Time: 2023-05-23 10:58:16 Total Exercise Time: 00:08:01 Test Indications: CP, ABN EKG Medications: SEE H Protocol: LESLEY Max HR: 179 BPM 97% of Pred: 183 BPM Max BP: 138/080 mmHG Max Work Load: 10.1 METS Exercise stress test exercise 8 min 1 sec of Lesley protocol achieivng 96% MPHR, without anginal symptoms, without arrhythmias, with normotensive response to exerice, without EKG changes meeting criteria for ischemia with t wave inversions at baseline which improved with exercise and returned in recovery. Echo images obtained at rest and immediately post peak exercise. Definity contrast used. Test reviewed with Dr. Felix. Referred By: Cesar Felix Overread By: RAVEN NOLASCO
== END ==
LOC: HO.CARD 10:54
PROVIDERS: Visit Provider Internal Medicine
DX: R07.2 Precordial pain (principal)
CPT/HCPCS: 93350; Q9957

== ENCOUNTER 2023-09-11 10:01 | Emergency (ER) | payer MEDICAID, SELFPAY ==
--- NOTE | ~2023-09-11 | XR_ITS ---
EXAMINATION: XR chest 2V CLINICAL INFORMATION: Reason for Exam cp COMPARISON: No prior chest x-ray available in our system for comparison at the time of this dictation. TECHNIQUE: XR chest 2V, 2 Views Lungs and Jamila: Both lungs are clear. Pleura: Normal. Costophrenic angles are sharp. No pneumothorax. Heart: The heart is normal in size. Mediastinum: The mediastinum is within normal limits.. Bones: Skeletal structures included are normal for patient's age. XR/XR chest 2V IMPRESSION: Normal chest x-ray.
--- NOTE | 2023-09-11 10:04 | ECG_ITS ---
Test Reason : CHEST PAIN Blood Pressure : / mmHG Vent. Rate : 098 BPM Atrial Rate : 098 BPM P-R Int : 158 ms QRS Dur : 080 ms QT Int : 328 ms P-R-T Axes : 070 013 020 degrees QTc Int : 418 ms Normal sinus rhythm Nonspecific ST and T wave abnormality Abnormal ECG When compared with ECG of 02-MAR-2023 00:38, Nonspecific T wave abnormality has replaced inverted T waves in Inferior leads Heart rate has increased Referred By: Teodora Mcallister Electronically Signed By:MANE WALTERS MD
--- NOTE | 2023-09-11 10:15 | ED_ITS ---
HPI - Chest Pain General Chief Complaint: Chest Pain Stated Complaint: severe chest pain Related Data Home Medications Medication Instructions Recorded Confirmed hydrochlorothiazide 12.5 mg tablet 12.5 mg PO QAM 04/13/23 04/13/23 lisinopril 10 mg tablet 10 mg PO DAILY 04/13/23 04/13/23 metformin 500 mg tablet,extended 500 mg PO QPM 04/13/23 04/13/23 release 24 hr Previous Rx's Medication Instructions Recorded ibuprofen 600 mg tablet 600 mg PO Q8H PRN pain #20 tabs 02/24/21 acetaminophen 500 mg tablet 1,000 mg (2 x 500 mg) PO QID PRN 05/29/21 (Tylenol Extra Strength) fever or pain #14 tabs ibuprofen 800 mg tablet 800 mg PO Q8H PRN pain #14 tabs 05/29/21 Allergies Allergy/AdvReac Type Severity Reaction Status Date / Time No Known Allergies Allergy Verified 04/13/23 08:57 [facility] Past Medical History Medical History (Updated 09/11/23 @ 17:30 by Teodora Mcallister NP) Essential hypertension Type 2 diabetes mellitus Diabetes Family History Family History Mother No problems noted. Social History Social History Alcohol intake: never Substance Use Type: Marijuana Advance Directives: No Advance Directives Information Provided: No Physical Exam 2 Vital Signs: Vital Signs: Last Vital Signs Temp 99 F 09/11/23 10:17 Pulse 99 09/11/23 10:17 Resp 16 09/11/23 10:17 BP 124/78 09/11/23 10:17 Pulse Ox 98 09/11/23 10:17 O2 Del Method Room Air 09/11/23 10:17 BMI result Body Mass Index 27.3 Course Course Course Narrative: This is a rapid medical exam. Deferred additional HPI, ROS, PE to primary provider. 38 yo male with history of HTN, DM, tobacco smoking here with left sided chest pain since yesterday worsened with arm movement (left arm). No shortness of breath/vomiting/diaphoresis. Will obtain labs, CXR, EKG VSS Medical Decision Making Lab Data 09/11/23 10:41 09/11/23 10:41 Labs: Lab Results 09/11/23 Range/Units 10:41 WBC 6.8 (4.8-10.8) X10*3/uL RBC 5.28 (4.60-5.80) X10*6/uL Hgb 12.2 L (14.0-18.0) g/dl Hct 39.2 L (42.0-52.0) % MCV 74.2 L (80.0-98.0) fL MCH 23.1 L (27.0-33.0) pg MCHC 31.1 (31.0-36.0) g/dl RDW 13.1 (11.0-16.0) % Plt Count 253 (160-400) X10*3/uL MPV 10.3 (9.4-12.4) fL Immature Gran % (Auto) 0.1 (0.0-0.4) % Neut % (Auto) 67.7 (45-73) % Lymph % (Auto) 24.2 (20-40) % [place] % (Auto) 6.6 (2-11) % Eos % (Auto) 1.0 (0-4) % Baso % (Auto) 0.4 (0-2) % Lymph # (Auto) 1.7 (1.2-4.9) X10*3/uL [place] # (Auto) 0.5 (0.1-1.2) X10*3/uL Eos # (Auto) 0.1 (0.0-0.4) X10*3/uL Baso # (Auto) 0.0 (0.0-0.2) X10*3/uL Abs Immat Gran (auto) 0.01 (0.00-0.03) X10*3/uL Absolute Neuts (auto) 4.6 (2.0-8.3) x10*3/uL Absolute Nucleated RBC 0.000 (0.0-0.012) X10*3/uL Nucleated RBC % (auto) 0.0 (0.0-0.2) /100WBC PT 12.2 (11.1-13.3) SEC INR 1.0 (0.9-1.1) Sodium 140 (135-145) mmol/L Potassium 4.1 (3.3-5.1) mmol/L Chloride 105 (96-108) mmol/L Carbon Dioxide 25 (22-29) mmol/L Anion Gap 14 (12-20) BUN 12 (9-16) mg/dL Creatinine 0.88 (0.5-1.4) mg/dL Estim Creat Clear Calc 126.1 Estimated GFR > 60 Random Glucose 217 H (60-115) mg/dL Calcium 9.6 (8.4-10.2) mg/dL Total Bilirubin 0.4 (0.0-1.0) mg/dL Direct Bilirubin 0.2 (0.0-0.5) mg/dL AST 15 (5-37) U/L ALT 15 (0-40) U/L Alkaline Phosphatase 60 (39-117) U/L Troponin I High Sens < 2.7 (<3.5-35.0) ng/L Total Protein 7.9 (6.5-8.0) g/dL Albumin 4.5 (3.5-5.0) g/dL Discharge Plan Discharge Clinical Impression: Chest pain Patient Disposition: Left W/O Completing Treatment Prescriptions: No Action ibuprofen 600 mg tablet 600 mg PO Q8H PRN (Reason: pain) Qty: 20 0RF ibuprofen 800 mg tablet 800 mg PO Q8H PRN (Reason: pain) Qty: 14 0RF acetaminophen [Tylenol Extra Strength] 500 mg tablet 1,000 mg PO QID PRN (Reason: fever or pain) Qty: 14 0RF lisinopril 10 mg tablet 10 mg PO DAILY hydrochlorothiazide 12.5 mg tablet 12.5 mg PO QAM metformin 500 mg tablet extended release 24 hr 500 mg PO QPM Discharge Date/Time: 09/11/23 15:09
[2023-09-11 10:17] VITALS: BP 124/78; PULSE 99; RESP 16; TEMP 37.2; O2SAT 98; BMI 27.3
[2023-09-11 10:45] LABS: MANUAL DIFF FLAG NO
[2023-09-11 10:50] LABS: Basophils Percent Auto 0.4 % (0-2); Eosinophils Absolute Auto 0.1 X10*3/uL (0.0-0.4); Hematocrit 39.2 % (42.0-52.0); Hemoglobin 12.2 g/dl (14.0-18.0); Imm Gran Abs Auto 0.01 X10*3/uL (0.00-0.03); Imm Gran Pct Auto 0.1 % (0.0-0.4); Lymphocytes Absolute Auto 1.7 X10*3/uL (1.2-4.9); Lymphocytes Percent Auto 24.2 % (20-40); Mean Corpuscular HGB Conc 31.1 g/dl (31.0-36.0); Mean Corpuscular Hemoglobin 23.1 pg (27.0-33.0); Mean Corpuscular Volume 74.2 fL (80.0-98.0); Mean Platelet Volume 10.3 fL (9.4-12.4); Monocytes Absolute Auto 0.5 X10*3/uL (0.1-1.2); Monocytes Percent Auto 6.6 % (2-11); Neutrophils Absolute Auto 4.6 x10*3/uL (2.0-8.3); Neutrophils Percent Auto 67.7 % (45-73); Platelet Count 253 X10*3/uL (160-400); Red Blood Count 5.28 X10*6/uL (4.60-5.80); Red Cell Distribution Width 13.1 % (11.0-16.0); White Blood Count 6.8 X10*3/uL (4.8-10.8)
[2023-09-11 10:51] LABS: Prothrombin Time 12.2 SEC (11.1-13.3)
[2023-09-11 11:00] LABS: Alanine Aminotransferase 15 U/L (0-40); Albumin Level 4.5 g/dL (3.5-5.0); Alkaline Phosphatase 60 U/L (39-117); Anion Gap 14 (12-20); Aspartate Amino Transferase 15 U/L (5-37); Bilirubin Direct 0.2 mg/dL (0.0-0.5); Bilirubin Total 0.4 mg/dL (0.0-1.0); Blood Urea Nitrogen 12 mg/dL (9-16); Calcium 9.6 mg/dL (8.4-10.2); Carbon Dioxide 25 mmol/L (22-29); Chloride 105 mmol/L (96-108); Creatinine Clr Calc Pharmacy 126.1; Estimated Glomerular Filt Rate > 60; Glucose Random 217 mg/dL (60-115); Potassium 4.1 mmol/L (3.3-5.1); Sodium 140 mmol/L (135-145); Total Protein 7.9 g/dL (6.5-8.0)
[2023-09-11 11:11] LABS: Troponin-I High Sensitivity < 2.7 ng/L (<3.5-35.0)
== END 2023-09-11 15:09 | disposition left against medical advice (07) ==
PROVIDERS: Nurse Practitioner Family; Emergency Provider Emergency Medicine; PCP Internal Medicine
DX: R07.89 Other chest pain (principal); Z79.899 Other long term (current) drug therapy
CPT/HCPCS: 36415; 71046; 80048; 80076; 84484; 85025; 85610; 93005; 99283

== ENCOUNTER 2023-10-16 12:48 | Emergency (ER) | payer MEDICAID, SELFPAY ==
[2023-10-16 13:02] VITALS: BP 118/85; PULSE 98; RESP 18; TEMP 36.7; O2SAT 99; BMI 26.2
--- NOTE | 2023-10-16 13:07 | ED_ITS ---
HPI - Chest Pain General Chief Complaint: Chest Pain Stated Complaint: HBP History of Present Illness HPI narrative: Left before being seen by ED provider. Related Data Home Medications Medication Instructions Recorded Confirmed hydrochlorothiazide 12.5 mg tablet 12.5 mg PO QAM 04/13/23 04/13/23 lisinopril 10 mg tablet 10 mg PO DAILY 04/13/23 04/13/23 metformin 500 mg tablet,extended 500 mg PO QPM 04/13/23 04/13/23 release 24 hr Previous Rx's Medication Instructions Recorded ibuprofen 600 mg tablet 600 mg PO Q8H PRN pain #20 tabs 02/24/21 acetaminophen 500 mg tablet 1,000 mg (2 x 500 mg) PO QID PRN 05/29/21 (Tylenol Extra Strength) fever or pain #14 tabs ibuprofen 800 mg tablet 800 mg PO Q8H PRN pain #14 tabs 05/29/21 Allergies Allergy/AdvReac Type Severity Reaction Status Date / Time No Known Allergies Allergy Verified 10/16/23 13:02 [facility] Past Medical History Medical History (Updated 10/17/23 @ 13:35 by HAYDEN Mandujano) Essential hypertension Type 2 diabetes mellitus Diabetes Family History Family History Mother No problems noted. Social History Social History Alcohol intake: never Substance Use Type: Marijuana Advance Directives: No Physical Exam Vital Signs: Vital Signs: Last Vital Signs Temp 98.0 F 10/16/23 13:02 Pulse 98 10/16/23 13:02 Resp 18 10/16/23 13:02 BP 118/85 10/16/23 13:02 Pulse Ox 99 10/16/23 13:02 O2 Del Method Room Air 10/16/23 13:02 BMI result Body Mass Index 26.2 Course Course Course Narrative: RME: 38 yold male presents to the ED resolved chest pain after thinking his blood pressure was high. patient was smoking marijuana. EKG, chest xray and labs normal. Blood pressure normal. no nuero deficits. Discharge Plan Discharge Clinical Impression: Chest pain Patient Disposition: Elopement Prescriptions: No Action ibuprofen 600 mg tablet 600 mg PO Q8H PRN (Reason: pain) Qty: 20 0RF ibuprofen 800 mg tablet 800 mg PO Q8H PRN (Reason: pain) Qty: 14 0RF acetaminophen [Tylenol Extra Strength] 500 mg tablet 1,000 mg PO QID PRN (Reason: fever or pain) Qty: 14 0RF lisinopril 10 mg tablet 10 mg PO DAILY hydrochlorothiazide 12.5 mg tablet 12.5 mg PO QAM metformin 500 mg tablet extended release 24 hr 500 mg PO QPM Discharge Date/Time: 10/16/23 16:43
--- NOTE | 2023-10-16 13:38 | MHC.EDTECH ---
No answer at 1310 and 1338. Registration stated taht he walked out.
== END 2023-10-16 16:43 | disposition left against medical advice (07) ==
PROVIDERS: Emergency Provider Emergency Medicine; PCP Internal Medicine
DX: R07.89 Other chest pain (principal); Z79.899 Other long term (current) drug therapy
CPT/HCPCS: 99281

== ENCOUNTER 2023-10-24 00:31 | Emergency (ER) | payer MEDICAID, SELFPAY ==
--- NOTE | 2023-10-24 | ECG_ITS ---
Test Reason : DIZZINESS Blood Pressure : / mmHG Vent. Rate : 065 BPM Atrial Rate : 065 BPM P-R Int : 174 ms QRS Dur : 090 ms QT Int : 382 ms P-R-T Axes : 063 014 005 degrees QTc Int : 397 ms Normal sinus rhythm Nonspecific ST and T wave abnormality Abnormal ECG When compared with ECG of 11-SEP-2023 10:07, Vent. rate has decreased BY 33 BPM Referred By: Generic ED Physician Electronically Signed By:MANE WALTERS MD
[2023-10-24 00:43] VITALS: BP 134/87; PULSE 76; RESP 18; TEMP 36.4; O2SAT 100; BMI 26.8
[2023-10-24 00:55] LABS: Glucose, Whole Blood 163 mg/dL (60-115)
--- NOTE | 2023-10-24 01:16 | MHC.EDTECH ---
Patient brought from triage area,EKG taken per order and labs were drawn and sent to lab,patient brought into room.
[2023-10-24 01:23] LABS: Basophils Percent Auto 0.4 % (0-2); Eosinophils Absolute Auto 0.3 X10*3/uL (0.0-0.4); Eosinophils Percent Auto 3.1 % (0-4); Hematocrit 38.9 % (42.0-52.0); Hemoglobin 12.1 g/dl (14.0-18.0); Imm Gran Abs Auto 0.02 X10*3/uL (0.00-0.03); Imm Gran Pct Auto 0.3 % (0.0-0.4); Lymphocytes Percent Auto 37.5 % (20-40); MANUAL DIFF FLAG NO; Mean Corpuscular HGB Conc 31.1 g/dl (31.0-36.0); Mean Corpuscular Volume 74.1 fL (80.0-98.0); Mean Platelet Volume 10.4 fL (9.4-12.4); Monocytes Absolute Auto 0.5 X10*3/uL (0.1-1.2); Monocytes Percent Auto 6.3 % (2-11); Neutrophils Absolute Auto 4.2 x10*3/uL (2.0-8.3); Neutrophils Percent Auto 52.4 % (45-73); Platelet Count 248 X10*3/uL (160-400); Red Blood Count 5.25 X10*6/uL (4.60-5.80); Red Cell Distribution Width 13.2 % (11.0-16.0)
[2023-10-24 01:42] LABS: Alanine Aminotransferase 13 U/L (0-40); Albumin Level 4.1 g/dL (3.5-5.0); Alkaline Phosphatase 76 U/L (39-117); Anion Gap 12 (12-20); Aspartate Amino Transferase 12 U/L (5-37); Bilirubin Direct < 0.2 mg/dL (0.0-0.5); Bilirubin Total 0.2 mg/dL (0.0-1.0); Blood Urea Nitrogen 11 mg/dL (9-16); Calcium 8.9 mg/dL (8.4-10.2); Carbon Dioxide 26 mmol/L (22-29); Chloride 104 mmol/L (96-108); Estimated Glomerular Filt Rate > 60; Glucose Random 155 mg/dL (60-115); Lipase 22 U/L (8-78); Potassium 3.4 mmol/L (3.3-5.1); Sodium 139 mmol/L (135-145); Total Protein 7.4 g/dL (6.5-8.0)
[2023-10-24 02:00] VITALS: BP 123/86; PULSE 66; RESP 16; TEMP 36.7; O2SAT 98
--- NOTE | 2023-10-24 02:58 | ED.DIZZY ---
HPI - Dizziness General Chief Complaint: Recheck/Abnormal Lab/Rx Stated Complaint: problem with sugars ? Time Seen by Provider: 10/24/23 02:46 Source: patient Mode of arrival: ambulatory Limitations: no limitations History of Present Illness HPI Narrative: 38-year-old male no history diabetes mellitus and hypertension who presents emergency department for evaluation of room spinning dizziness. Patient states the symptoms came on suddenly. He states that he felt his entire body was cramping up. He denied being ill in any way prior to the onset of his symptoms. He states he has had similar symptoms in the past and was diagnosed with vertigo. He denied fever, chills, rhinorrhea, sore throat, shortness of breath, dyspnea exertion, changes bowel movements, dark stools, bloody stools, frequency urgency or dysuria. Related Data Home Medications Medication Instructions Recorded Confirmed hydrochlorothiazide 12.5 mg tablet 12.5 mg PO QAM 04/13/23 04/13/23 lisinopril 10 mg tablet 10 mg PO DAILY 04/13/23 04/13/23 metformin 500 mg tablet,extended 500 mg PO QPM 04/13/23 04/13/23 release 24 hr Previous Rx's Medication Instructions Recorded ibuprofen 600 mg tablet 600 mg PO Q8H PRN pain #20 tabs 02/24/21 acetaminophen 500 mg tablet 1,000 mg (2 x 500 mg) PO QID PRN 05/29/21 (Tylenol Extra Strength) fever or pain #14 tabs ibuprofen 800 mg tablet 800 mg PO Q8H PRN pain #14 tabs 05/29/21 meclizine 25 mg tablet (Dramamine 25 mg PO TID PRN dizziness #20 tabs 10/24/23 Less Drowsy) Allergies Allergy/AdvReac Type Severity Reaction Status Date / Time No Known Allergies Allergy Verified 10/16/23 13:02 Review of Systems Review of Systems: Yes all other systems are reviewed and are negative COUNT INCLUDES THE [facility] Past Medical History COUNT INCLUDES THE [facility] Narrative: Social history: Denies tobacco and alcohol use. He does smoke marijuana. Medical History Essential hypertension Type 2 diabetes mellitus Diabetes Family History Family History Mother No problems noted. Social History Alcohol intake: never Substance Use Type: Marijuana Advance Directives: No Advance Directives Information Provided: Yes Physical Exam Vital Signs: Vital Signs: Last Vital Signs Temp 98.1 F 10/24/23 02:00 Pulse 66 10/24/23 02:00 Resp 16 10/24/23 02:00 BP 123/86 10/24/23 02:00 Pulse Ox 98 10/24/23 02:00 O2 Del Method Room Air 10/24/23 02:00 BMI result Body Mass Index 26.8 Vital signs were normal Exam General: Awake, alert in no distress Head: Normocephalic, atraumatic EENT: PERRL, Lids normal, sclera normal, conjunctiva normal, nose normal , ears normal, throat without erythema or exudates, lateral nystagmus Neck: Supple, no adenopathy, no trachea midline or C-spine tenderness Lung: breath sounds symmetric, no wheezing, rales or rhonchi Chest: symmetric movement, nontender Heart: regular rate and rhythm, normal S1, S2 no murmurs or rubs Abdomen: soft, non-tender, nondistended, normal bowel sounds Back: no vertebral tenderness, no CVAT Extremities: no deformities, moves all extremities symmetrically Neuro: Awake, alert, oriented, normal speech, cranial nerves intact, moves all extremities symmetrically Psych: Pleasant, cooperative Medical Decision Making Medical Decision Making MDM Narrative: 38-year-old male no history diabetes mellitus and hypertension who presents emergency department for evaluation of room spinning dizziness. Patient vital signs were normal. Physical examination did reveal lateral nystagmus otherwise was unremarkable. Following evaluation was ordered: CBC, BMP, liver panel, lipase, 12 EKG Patient was treated with meclizine 25 mg orally 03:03 My interpretation patient's laboratory evaluation is as follows: CBC was normal. Glucose elevated 155. LFTs were normal. Lipase was normal. Patient's 12 EKG was unremarkable. Patient's presentation is consistent with positional vertigo. Patient was treated with meclizine and given a prescription for meclizine 25 mg 3 times a day as needed for dizziness. He was given printed and verbal instructions discharged home. Differential Diagnosis Differential Diagnoses: The differential diagnosis associated with the presentation includes Differential diagnosis includes was not limited to myocardial infarction, myocardial ischemia, electrolyte abnormality, anemia, vertigo, stroke, anxiety Admission/Observation Consideration of admission/observation: Escalation of care including admission/observation considered Lab Data [facility] Lab Attestation statement: I reviewed the patient's lab results. Please see [facility] for interpretation 10/24/23 01:16 10/24/23 01:16 Labs: Lab Results 10/24/23 10/24/23 Range/Units 00:48 01:16 WBC 8.0 (4.8-10.8) X10*3/uL RBC 5.25 (4.60-5.80) X10*6/uL Hgb 12.1 L (14.0-18.0) g/dl Hct 38.9 L (42.0-52.0) % MCV 74.1 L (80.0-98.0) fL MCH 23.0 L (27.0-33.0) pg MCHC 31.1 (31.0-36.0) g/dl RDW 13.2 (11.0-16.0) % Plt Count 248 (160-400) X10*3/uL MPV 10.4 (9.4-12.4) fL Immature Gran % (Auto) 0.3 (0.0-0.4) % Neut % (Auto) 52.4 (45-73) % Lymph % (Auto) 37.5 (20-40) % [place] % (Auto) 6.3 (2-11) % Eos % (Auto) 3.1 (0-4) % Baso % (Auto) 0.4 (0-2) % Lymph # (Auto) 3.0 (1.2-4.9) X10*3/uL [place] # (Auto) 0.5 (0.1-1.2) X10*3/uL Eos # (Auto) 0.3 (0.0-0.4) X10*3/uL Baso # (Auto) 0.0 (0.0-0.2) X10*3/uL Abs Immat Gran (auto) 0.02 (0.00-0.03) X10*3/uL Absolute Neuts (auto) 4.2 (2.0-8.3) x10*3/uL Absolute Nucleated RBC 0.000 (0.0-0.012) X10*3/uL Nucleated RBC % (auto) 0.0 (0.0-0.2) /100WBC Sodium 139 (135-145) mmol/L Potassium 3.4 (3.3-5.1) mmol/L Chloride 104 (96-108) mmol/L Carbon Dioxide 26 (22-29) mmol/L Anion Gap 12 (12-20) BUN 11 (9-16) mg/dL Creatinine 0.81 (0.5-1.4) mg/dL Estim Creat Clear Calc 137.0 Estimated GFR > 60 POC Glucose 163 H (60-115) mg/dL Random Glucose 155 H (60-115) mg/dL Calcium 8.9 D (8.4-10.2) mg/dL Total Bilirubin 0.2 (0.0-1.0) mg/dL Direct Bilirubin < 0.2 (0.0-0.5) mg/dL AST 12 (5-37) U/L ALT 13 (0-40) U/L Alkaline Phosphatase 76 (39-117) U/L Total Protein 7.4 (6.5-8.0) g/dL Albumin 4.1 (3.5-5.0) g/dL Lipase 22 (8-78) U/L Independent Interpretation I performed an independent interpretation of an: EKG Interpretation: My independent interpretation the patient's 12 EKG done at 00:05 hours is as follows: Normal sinus rhythm with a rate of 65, normal ND interval, QRS duration QTC interval, no ST segment elevation, no ST segment depression, no PACs, no PVCs nonspecific T-wave abnormalities Prescription Management I considered prescription management with: Other (Meclizine) Chronic Conditions Patient?s care impacted by: Diabetes and Hypertension Discharge Plan Discharge Clinical Impression: Vertigo Patient Disposition: Home, Self-Care Instructions: Vertigo (ED) Additional Instructions: Your blood work was normal pain Your EKG was normal. Your symptoms are consistent with vertigo Take meclizine 25 mg pills, 1 pill 3 times a day for the next 3 days for dizziness then as needed for dizziness. This medication will make you sleepy. Do not drive or work while taking this medication. Follow-up with your doctor in 2 days. Please return to the emergency department if your symptoms get worse or if you develop any symptoms that are concerning to you. Please see work note Prescriptions: New meclizine [Dramamine Less Drowsy] 25 mg tablet 25 mg PO TID PRN (Reason: dizziness) Qty: 20 0RF No Action ibuprofen 600 mg tablet 600 mg PO Q8H PRN (Reason: pain) Qty: 20 0RF ibuprofen 800 mg tablet 800 mg PO Q8H PRN (Reason: pain) Qty: 14 0RF acetaminophen [Tylenol Extra Strength] 500 mg tablet 1,000 mg PO QID PRN (Reason: fever or pain) Qty: 14 0RF lisinopril 10 mg tablet 10 mg PO DAILY hydrochlorothiazide 12.5 mg tablet 12.5 mg PO QAM metformin 500 mg tablet extended release 24 hr 500 mg PO QPM Stand Alone Forms: Work/School Release
[2023-10-24] MEDS: Meclizine HCl 25 MG TABLET PO (03:12)
== END 2023-10-24 03:17 | disposition home or self-care (01) ==
PROVIDERS: Emergency Provider Emergency Medicine Emergency Medical Services; PCP Internal Medicine
DX: R42 Dizziness and giddiness (principal); E11.9 Type 2 diabetes mellitus without complications; I10 Essential (primary) hypertension; F12.90 Cannabis use, unspecified, uncomplicated; Z79.899 Other long term (current) drug therapy; Z79.84 Long term (current) use of oral hypoglycemic drugs
CPT/HCPCS: 36415; 80048; 80076; 82947; 83690; 85025; 93005; 99283; 99284

== ENCOUNTER 2023-10-26 19:50 | Emergency (ER) | payer MEDICAID, SELFPAY ==
[2023-10-26 20:11] VITALS: BP 132/85; PULSE 85; RESP 18; TEMP 36.2; O2SAT 99; BMI 28.5
--- NOTE | 2023-10-26 20:11 | ED_ITS ---
HPI - General Adult General Chief complaint: General Medical Stated complaint: high blood sugar Related Data Home Medications Medication Instructions Recorded Confirmed hydrochlorothiazide 12.5 mg tablet 12.5 mg PO QAM 04/13/23 04/13/23 lisinopril 10 mg tablet 10 mg PO DAILY 04/13/23 04/13/23 metformin 500 mg tablet,extended 500 mg PO QPM 04/13/23 04/13/23 release 24 hr Previous Rx's Medication Instructions Recorded ibuprofen 600 mg tablet 600 mg PO Q8H PRN pain #20 tabs 02/24/21 acetaminophen 500 mg tablet 1,000 mg (2 x 500 mg) PO QID PRN 05/29/21 (Tylenol Extra Strength) fever or pain #14 tabs ibuprofen 800 mg tablet 800 mg PO Q8H PRN pain #14 tabs 05/29/21 meclizine 25 mg tablet (Dramamine 25 mg PO TID PRN dizziness #20 tabs 10/24/23 Less Drowsy) Allergies Allergy/AdvReac Type Severity Reaction Status Date / Time No Known Allergies Allergy Verified 10/26/23 20:11 PENDING SALE TO [facility] Past Medical History Medical History Essential hypertension Type 2 diabetes mellitus Diabetes Family History Family History Mother No problems noted. Social History Social History Alcohol intake: never Substance Use Type: Marijuana Advance Directives: No Advance Directives Information Provided: No Physical Exam ED Vital Signs: BMI result Body Mass Index 28.5 Course Course Course Narrative: This is an RME: Additional HPI, ROS, PE not included below will be deferred to primary provider. This is a 29-wugh-gdy-male, with a hx of diabetes mellitus and hypertension presenting to the ER with complaints of hyperglycemia. Reports that he ate taco espinosa this evening and took his blood glucose level and it was high - 230s. Reports that he is not on insulin Has been compliant with metformin. Has headache otherwise feeling ok. Plan: Labs Reevaluation(s) Reevaluation #1: Patient eloped prior to being fully evaluated. Medical Decision Making Lab Data 10/26/23 20:44 10/26/23 20:44 Labs: Lab Results 10/26/23 Range/Units 20:44 WBC 9.0 (4.8-10.8) X10*3/uL RBC 5.57 (4.60-5.80) X10*6/uL Hgb 13.0 L (14.0-18.0) g/dl Hct 40.9 L (42.0-52.0) % MCV 73.4 L (80.0-98.0) fL MCH 23.3 L (27.0-33.0) pg MCHC 31.8 (31.0-36.0) g/dl RDW 13.0 (11.0-16.0) % Plt Count 271 (160-400) X10*3/uL MPV 10.7 (9.4-12.4) fL Immature Gran % (Auto) 0.2 (0.0-0.4) % Neut % (Auto) 62.7 (45-73) % Lymph % (Auto) 29.5 (20-40) % [place] % (Auto) 5.9 (2-11) % Eos % (Auto) 1.1 (0-4) % Baso % (Auto) 0.6 (0-2) % Lymph # (Auto) 2.7 (1.2-4.9) X10*3/uL [place] # (Auto) 0.5 (0.1-1.2) X10*3/uL Eos # (Auto) 0.1 (0.0-0.4) X10*3/uL Baso # (Auto) 0.1 (0.0-0.2) X10*3/uL Abs Immat Gran (auto) 0.02 (0.00-0.03) X10*3/uL Absolute Neuts (auto) 5.7 (2.0-8.3) x10*3/uL Absolute Nucleated RBC 0.000 (0.0-0.012) X10*3/uL Nucleated RBC % (auto) 0.0 (0.0-0.2) /100WBC Sodium 141 (135-145) mmol/L Potassium 3.8 (3.3-5.1) mmol/L Chloride 104 (96-108) mmol/L Carbon Dioxide 28 (22-29) mmol/L Anion Gap 13 (12-20) BUN 13 (9-16) mg/dL Creatinine 0.90 (0.5-1.4) mg/dL Estim Creat Clear Calc 134.5 Estimated GFR > 60 Random Glucose 148 H (60-115) mg/dL Calcium 9.7 D (8.4-10.2) mg/dL Total Bilirubin 0.2 (0.0-1.0) mg/dL Direct Bilirubin < 0.2 (0.0-0.5) mg/dL AST 14 (5-37) U/L ALT 15 (0-40) U/L Alkaline Phosphatase 70 (39-117) U/L Total Protein 7.8 (6.5-8.0) g/dL Albumin 4.4 (3.5-5.0) g/dL Beta-Hydroxybutyrate 0.08 (0.02-0.27) mmol/L Discharge Plan Discharge Clinical Impression: Hyperglycemia Patient Disposition: Left W/O Completing Treatment Prescriptions: No Action ibuprofen 600 mg tablet 600 mg PO Q8H PRN (Reason: pain) Qty: 20 0RF ibuprofen 800 mg tablet 800 mg PO Q8H PRN (Reason: pain) Qty: 14 0RF acetaminophen [Tylenol Extra Strength] 500 mg tablet 1,000 mg PO QID PRN (Reason: fever or pain) Qty: 14 0RF meclizine [Dramamine Less Drowsy] 25 mg tablet 25 mg PO TID PRN (Reason: dizziness) Qty: 20 0RF lisinopril 10 mg tablet 10 mg PO DAILY hydrochlorothiazide 12.5 mg tablet 12.5 mg PO QAM metformin 500 mg tablet extended release 24 hr 500 mg PO QPM Discharge Date/Time: 10/27/23 00:45
[2023-10-26 20:49] LABS: MANUAL DIFF FLAG NO
[2023-10-26 20:53] LABS: Basophils Absolute Auto 0.1 X10*3/uL (0.0-0.2); Basophils Percent Auto 0.6 % (0-2); Eosinophils Absolute Auto 0.1 X10*3/uL (0.0-0.4); Eosinophils Percent Auto 1.1 % (0-4); Hematocrit 40.9 % (42.0-52.0); Imm Gran Abs Auto 0.02 X10*3/uL (0.00-0.03); Imm Gran Pct Auto 0.2 % (0.0-0.4); Lymphocytes Absolute Auto 2.7 X10*3/uL (1.2-4.9); Lymphocytes Percent Auto 29.5 % (20-40); Mean Corpuscular HGB Conc 31.8 g/dl (31.0-36.0); Mean Corpuscular Hemoglobin 23.3 pg (27.0-33.0); Mean Corpuscular Volume 73.4 fL (80.0-98.0); Mean Platelet Volume 10.7 fL (9.4-12.4); Monocytes Absolute Auto 0.5 X10*3/uL (0.1-1.2); Monocytes Percent Auto 5.9 % (2-11); Neutrophils Absolute Auto 5.7 x10*3/uL (2.0-8.3); Neutrophils Percent Auto 62.7 % (45-73); Platelet Count 271 X10*3/uL (160-400); Red Blood Count 5.57 X10*6/uL (4.60-5.80)
[2023-10-26 22:25] LABS: Alanine Aminotransferase 15 U/L (0-40); Albumin Level 4.4 g/dL (3.5-5.0); Alkaline Phosphatase 70 U/L (39-117); Anion Gap 13 (12-20); Aspartate Amino Transferase 14 U/L (5-37); Bilirubin Direct < 0.2 mg/dL (0.0-0.5); Bilirubin Total 0.2 mg/dL (0.0-1.0); Blood Urea Nitrogen 13 mg/dL (9-16); Calcium 9.7 mg/dL (8.4-10.2); Carbon Dioxide 28 mmol/L (22-29); Chloride 104 mmol/L (96-108); Creatinine Clr Calc Pharmacy 134.5; Estimated Glomerular Filt Rate > 60; Glucose Random 148 mg/dL (60-115); Potassium 3.8 mmol/L (3.3-5.1); Sodium 141 mmol/L (135-145); Total Protein 7.8 g/dL (6.5-8.0)
[2023-10-26 23:16] LABS: Beta-Hydroxybutyrate 0.08 mmol/L (0.02-0.27)
== END 2023-10-27 00:45 | disposition left against medical advice (07) ==
PROVIDERS: Physician Assistant Medical; Emergency Provider Emergency Medicine
DX: E11.65 Type 2 diabetes mellitus with hyperglycemia (principal); Z79.899 Other long term (current) drug therapy; Z79.84 Long term (current) use of oral hypoglycemic drugs
CPT/HCPCS: 36415; 80048; 80076; 82010; 85025; 99281; 99283

== ENCOUNTER 2023-11-06 23:39 | Emergency (ER) | payer MEDICAID, SELFPAY ==
--- NOTE | 2023-11-06 | ECG_ITS ---
Test Reason : HYPERTENSION Blood Pressure : / mmHG Vent. Rate : 078 BPM Atrial Rate : 078 BPM P-R Int : 170 ms QRS Dur : 088 ms QT Int : 362 ms P-R-T Axes : 070 034 -02 degrees QTc Int : 412 ms Normal sinus rhythm Nonspecific ST and T wave abnormality Abnormal ECG When compared with ECG of 24-OCT-2023 01:12, No significant change was found Referred By: Generic ED Physician Electronically Signed By:Hunter Story
[2023-11-06 23:40] VITALS: BP 172/101; PULSE 103; RESP 20; TEMP 36.8; O2SAT 100; BMI 28.5
[2023-11-06 23:45] VITALS: BP 169/100
[2023-11-07 00:05] LABS: Basophils Absolute Auto 0.1 X10*3/uL (0.0-0.2); Basophils Percent Auto 0.6 % (0-2); Eosinophils Absolute Auto 0.4 X10*3/uL (0.0-0.4); Hematocrit 39.2 % (42.0-52.0); Hemoglobin 12.2 g/dl (14.0-18.0); Imm Gran Abs Auto 0.01 X10*3/uL (0.00-0.03); Imm Gran Pct Auto 0.1 % (0.0-0.4); Lymphocytes Absolute Auto 3.8 X10*3/uL (1.2-4.9); Lymphocytes Percent Auto 39.6 % (20-40); MANUAL DIFF FLAG NO; Mean Corpuscular HGB Conc 31.1 g/dl (31.0-36.0); Mean Corpuscular Hemoglobin 22.8 pg (27.0-33.0); Mean Corpuscular Volume 73.1 fL (80.0-98.0); Mean Platelet Volume 10.4 fL (9.4-12.4); Monocytes Absolute Auto 0.6 X10*3/uL (0.1-1.2); Monocytes Percent Auto 6.5 % (2-11); Neutrophils Absolute Auto 4.7 x10*3/uL (2.0-8.3); Neutrophils Percent Auto 49.2 % (45-73); Platelet Count 253 X10*3/uL (160-400); Red Blood Count 5.36 X10*6/uL (4.60-5.80); White Blood Count 9.6 X10*3/uL (4.8-10.8)
[2023-11-07 00:20] LABS: Alanine Aminotransferase 14 U/L (0-40); Albumin Level 4.4 g/dL (3.5-5.0); Alkaline Phosphatase 90 U/L (39-117); Anion Gap 16 (12-20); Aspartate Amino Transferase 15 U/L (5-37); Bilirubin Total 0.2 mg/dL (0.0-1.0); Blood Urea Nitrogen 16 mg/dL (9-16); Calcium 9.3 mg/dL (8.4-10.2); Carbon Dioxide 25 mmol/L (22-29); Chloride 103 mmol/L (96-108); Creatinine Clr Calc Pharmacy 139.2; Estimated Glomerular Filt Rate > 60; Glucose Random 240 mg/dL (60-115); Sodium 140 mmol/L (135-145); Total Protein 7.6 g/dL (6.5-8.0)
--- NOTE | 2023-11-07 00:26 | ED_ITS ---
HPI - General Adult General Chief complaint: General Medical Stated complaint: High blood pressure Time Seen by Provider: 11/07/23 00:26 Source: patient and old records reviewed Mode of arrival: ambulatory Limitations: no limitations History of Present Illness HPI narrative: 38 yo male with PMH of HTN, DM here with c/o not taking medications x 2 days as he ran out he will see his doctor on Tuesday. He is unhappy at his job it gives him pain in his hands. He feels tense at times and can feel headaches and tense in his body he had some chest pain earlier. He is asking for his medications. MD complaint: HTN, chest pain, stress Onset (ago): day(s) Location: head and chest Radiation: non-radiation Severity: mild Quality: other (tense, tightening) Pain Consistency: intermittent Relieving factors: none Exacerbating factors: other (stress, work, lack of meds) Associated symptoms: chest pain Treatments prior to arrival: none Related Data Home Medications Medication Instructions Recorded Confirmed hydrochlorothiazide 12.5 mg tablet 12.5 mg PO QAM 04/13/23 04/13/23 lisinopril 10 mg tablet 10 mg PO DAILY 04/13/23 04/13/23 metformin 500 mg tablet,extended 500 mg PO QPM 04/13/23 04/13/23 release 24 hr Previous Rx's Medication Instructions Recorded ibuprofen 600 mg tablet 600 mg PO Q8H PRN pain #20 tabs 02/24/21 acetaminophen 500 mg tablet 1,000 mg (2 x 500 mg) PO QID PRN 05/29/21 (Tylenol Extra Strength) fever or pain #14 tabs ibuprofen 800 mg tablet 800 mg PO Q8H PRN pain #14 tabs 05/29/21 meclizine 25 mg tablet (Dramamine 25 mg PO TID PRN dizziness #20 tabs 10/24/23 Less Drowsy) hydrochlorothiazide 12.5 mg capsule 12.5 mg PO DAILY #30 caps 11/07/23 lisinopril 20 mg tablet 20 mg PO DAILY #30 tabs 11/07/23 metformin 500 mg tablet,extended 500 mg PO DAILY #30 tabs 11/07/23 release 24 hr Allergies Allergy/AdvReac Type Severity Reaction Status Date / Time No Known Allergies Allergy Verified 11/06/23 23:44 Review of Systems 2 Review of Systems: Constitutional : No Weight loss, No Fever, No Chills ENT/Mouth : No sore throat, No Rhinorrhea Eyes: No Eye Pain, No Swelling Cardiovascular : pos Chest Pain, no SOB, no Dyspnea on Exertion, No Orthopnea, No Edema, No Palpitations Respiratory : No Cough, No Sputum Gastrointestinal : no Nausea, No Vomiting, No Diarrhea, No abdominal Pain, No Hematochezia, No Melena Genitourinary : No Dysuria, No Urinary Frequency Musculoskeletal : No joint pain, No Myalgias, No Joint Swelling Skin : No Skin Lesions, No rash Neuro : No Weakness, No Numbness, No Dizziness, pos Headache Psych : No Anxiety/Panic, No Depression Heme/Lymph: No Bruising, No Lymphadenopathy Endocrine : No Polyuria, No Polydipsia All other systems reviewed and are negative [facility] Past Medical History Attestation statement: The following information was validated with the patient. Source: old records reviewed Medical History Essential hypertension Type 2 diabetes mellitus Diabetes Family History Family History Mother No problems noted. Social History Social History Alcohol intake: never Substance Use Type: Marijuana Physical Exam ED Vital Signs: Vital Signs - 24 hr 11/06/23 23:40 11/06/23 23:45 Temperature 98.2 F Pulse Rate 103 H Respiratory Rate 20 Blood Pressure 172/101 H 169/100 H Pulse Oximetry 100 Oxygen Delivery Method Room Air BMI result Body Mass Index 28.5 Appearance: Alert. Oriented X3. No acute distress. Eyes: Pupils equal, round and reactive to light. ENT: Pharynx normal. Neck: Normal inspection. Neck supple. CVS: Normal heart rate and rhythm. Pulses normal. Respiratory: No respiratory distress. Breath sounds normal. Abdomen: Soft and non-tender. Skin: Skin warm and dry. Normal skin color. Normal skin turgor. Extremities: No lower extremity edema. No calf ttp Neuro: Oriented X 3. No motor deficit. No sensory deficit. Medical Decision Making Medical Decision Making MDM Narrative: 38 yo male with PMH of HTN, DM here with c/o lack of medications for a couple of days now with headaches, feeling his pressure is up, job stress, atypical chest pain with no associated symptoms - distal pulses intact, PERC negative, doubt dissection. Will obtain EKG, trop and basic labs, start back on medications and DC home to PCP follow up Differential Diagnosis Differential Diagnoses: The differential diagnosis associated with the presentation includes uncontrolled HTN, stress, atypical chest pain Admission/Observation Consideration of admission/observation: Escalation of care including admission/observation considered Lab Data MDM Lab Attestation statement: I reviewed the patient's lab results. 11/06/23 23:58 11/06/23 23:58 Labs: Lab Results 11/06/23 Range/Units 23:58 WBC 9.6 (4.8-10.8) X10*3/uL RBC 5.36 (4.60-5.80) X10*6/uL Hgb 12.2 L (14.0-18.0) g/dl Hct 39.2 L (42.0-52.0) % MCV 73.1 L (80.0-98.0) fL MCH 22.8 L (27.0-33.0) pg MCHC 31.1 (31.0-36.0) g/dl RDW 13.0 (11.0-16.0) % Plt Count 253 (160-400) X10*3/uL MPV 10.4 (9.4-12.4) fL Immature Gran % (Auto) 0.1 (0.0-0.4) % Neut % (Auto) 49.2 (45-73) % Lymph % (Auto) 39.6 (20-40) % [place] % (Auto) 6.5 (2-11) % Eos % (Auto) 4.0 (0-4) % Baso % (Auto) 0.6 (0-2) % Lymph # (Auto) 3.8 (1.2-4.9) X10*3/uL [place] # (Auto) 0.6 (0.1-1.2) X10*3/uL Eos # (Auto) 0.4 (0.0-0.4) X10*3/uL Baso # (Auto) 0.1 (0.0-0.2) X10*3/uL Abs Immat Gran (auto) 0.01 (0.00-0.03) X10*3/uL Absolute Neuts (auto) 4.7 (2.0-8.3) x10*3/uL Absolute Nucleated RBC 0.000 (0.0-0.012) X10*3/uL Nucleated RBC % (auto) 0.0 (0.0-0.2) /100WBC Sodium 140 (135-145) mmol/L Potassium 4.0 (3.3-5.1) mmol/L Chloride 103 (96-108) mmol/L Carbon Dioxide 25 (22-29) mmol/L Anion Gap 16 (12-20) BUN 16 (9-16) mg/dL Creatinine 0.87 (0.5-1.4) mg/dL Estim Creat Clear Calc 139.2 Estimated GFR > 60 Random Glucose 240 H (60-115) mg/dL Calcium 9.3 (8.4-10.2) mg/dL Total Bilirubin 0.2 (0.0-1.0) mg/dL AST 15 (5-37) U/L ALT 14 (0-40) U/L Alkaline Phosphatase 90 (39-117) U/L Troponin I High Sens < 2.7 (<3.5-35.0) ng/L Total Protein 7.6 (6.5-8.0) g/dL Albumin 4.4 (3.5-5.0) g/dL Independent Interpretation I performed an independent interpretation of an: EKG Interpretation: Rate: 78 Rhythm: NSR [place]: normal Normal P waves. Normal [place]. Normal QRS complex. ST T wave : no PETRA, inverted t waves III and aVF qTC: normal prior studies: no acute ischemia The study has been interpreted contemporaneously by me. . External Record Review External record reviewed: Office record Prescription Management I considered prescription management with: Other Chronic Conditions Patient?s care impacted by: Diabetes and Hypertension Discharge Plan Discharge Clinical Impression: Atypical chest pain HTN (hypertension) Qualifiers: Hypertension type: unspecified Qualified Code(s): I10 - Essential (primary) hypertension Patient Disposition: Home, Self-Care Instructions: Chest Pain (ED), Hypertension (ED) Additional Instructions: labs normal, EKG unchanged, please follow up with your doctor as planned on Tuesday. return for worsening pain, numbness, weakness or any other concerns. Prescriptions: New lisinopril 20 mg tablet 20 mg PO DAILY Qty: 30 0RF hydrochlorothiazide 12.5 mg capsule 12.5 mg PO DAILY Qty: 30 0RF metformin 500 mg tablet extended release 24 hr 500 mg PO DAILY Qty: 30 0RF No Action ibuprofen 600 mg tablet 600 mg PO Q8H PRN (Reason: pain) Qty: 20 0RF ibuprofen 800 mg tablet 800 mg PO Q8H PRN (Reason: pain) Qty: 14 0RF acetaminophen [Tylenol Extra Strength] 500 mg tablet 1,000 mg PO QID PRN (Reason: fever or pain) Qty: 14 0RF meclizine [Dramamine Less Drowsy] 25 mg tablet 25 mg PO TID PRN (Reason: dizziness) Qty: 20 0RF lisinopril 10 mg tablet 10 mg PO DAILY hydrochlorothiazide 12.5 mg tablet 12.5 mg PO QAM metformin 500 mg tablet extended release 24 hr 500 mg PO QPM Stand Alone Forms: Work/School Release
[2023-11-07 00:31] LABS: Troponin-I High Sensitivity < 2.7 ng/L (<3.5-35.0)
[2023-11-07] MEDS: lisinopriL 20 MG TABLET PO (00:49)
[2023-11-07] MEDS: hydroCHLOROthiazide 12.5 MG TABLET PO (00:49)
[2023-11-07 00:53] VITALS: BP 121/69; PULSE 70; RESP 16; TEMP 36.7; O2SAT 98
== END 2023-11-07 00:56 | disposition home or self-care (01) ==
LOC: HO.ED 11-07 00:44
PROVIDERS: Emergency Provider Emergency Medicine; PCP Internal Medicine
DX: R07.89 Other chest pain (principal); I10 Essential (primary) hypertension; E11.9 Type 2 diabetes mellitus without complications; Z79.84 Long term (current) use of oral hypoglycemic drugs; Z79.899 Other long term (current) drug therapy
CPT/HCPCS: 36415; 80053; 84484; 85025; 93005; 99283; 99284

== ENCOUNTER → 2023-11-06 23:54 | Outpatient (BNV) | payer MEDICAID, SELFPAY | PROVIDERS: Emergency Provider Emergency Medicine; PCP Internal Medicine; Visit Provider Internal Medicine Cardiovascular Disease | DX: R94.31 Abnormal electrocardiogram [ECG] [EKG] (principal); I10 Essential (primary) hypertension | CPT/HCPCS: 93010 ==

== ENCOUNTER 2023-11-07 10:01 | Outpatient (REF) | payer MEDICAID, SELFPAY ==
[2023-11-07 11:36] LABS: Immature Retic Fraction 5.1 % (2.3-13.4); Retic HGB Equivalent 28.1 pg (30.0-35.0); Reticulocyte Percent 0.9 % (0.5-1.8); Reticulocytes Absolute 0.052 X10*6/uL (0.026-0.095)
[2023-11-07 12:26] LABS: Iron 69 mcg/dL (45-160); Percent Iron Saturation 21 % (15-50); Total Iron Binding Capacity 321 mcg/dL (228-428); Unsaturated Iron Binding 252 ug/dL
[2023-11-07 12:31] LABS: Ferritin 94 ng/mL (20-250); Vitamin D 25-OH Total 27.2 ng/mL (>30)
[2023-11-07 12:51] LABS: Folate 13.8 ng/mL (> or = 4.0); Vitamin B12 973 pg/mL (200-900)
== END 2023-11-07 10:02 | disposition home or self-care (01) ==
LOC: HO.HHCL 10:01
PROVIDERS: Visit Provider Emergency Medicine
DX: D50.9 Iron deficiency anemia, unspecified (principal)
CPT/HCPCS: 36415; 82306; 82607; 82728; 82746; 83540; 85045

== ENCOUNTER 2023-11-15 12:22 | Emergency (ER) | payer MEDICAID, SELFPAY ==
--- NOTE | 2023-11-15 12:25 | ECG_ITS ---
Test Reason : cp Blood Pressure : / mmHG Vent. Rate : 105 BPM Atrial Rate : 105 BPM P-R Int : 162 ms QRS Dur : 072 ms QT Int : 306 ms P-R-T Axes : 070 041 033 degrees QTc Int : 404 ms Sinus tachycardia Otherwise normal ECG When compared with ECG of 06-NOV-2023 23:54, No significant change was found Referred By: Generic ED Physician Electronically Signed By:BEL VANG MD
[2023-11-15 12:50] VITALS: BP 129/82; PULSE 115; RESP 17; TEMP 36.8; O2SAT 98; BMI 25.4
[2023-11-15 13:08] LABS: MANUAL DIFF FLAG NO
[2023-11-15 13:11] LABS: Basophils Percent Auto 0.4 % (0-2); Eosinophils Percent Auto 0.4 % (0-4); Hemoglobin 13.2 g/dl (14.0-18.0); Imm Gran Abs Auto 0.03 X10*3/uL (0.00-0.03); Imm Gran Pct Auto 0.3 % (0.0-0.4); Lymphocytes Absolute Auto 1.7 X10*3/uL (1.2-4.9); Lymphocytes Percent Auto 15.8 % (20-40); Mean Corpuscular HGB Conc 31.4 g/dl (31.0-36.0); Mean Corpuscular Hemoglobin 22.9 pg (27.0-33.0); Mean Corpuscular Volume 72.8 fL (80.0-98.0); Mean Platelet Volume 10.6 fL (9.4-12.4); Monocytes Absolute Auto 0.6 X10*3/uL (0.1-1.2); Monocytes Percent Auto 5.6 % (2-11); Neutrophils Absolute Auto 8.2 x10*3/uL (2.0-8.3); Neutrophils Percent Auto 77.5 % (45-73); Platelet Count 282 X10*3/uL (160-400); Red Blood Count 5.77 X10*6/uL (4.60-5.80); Red Cell Distribution Width 13.2 % (11.0-16.0); White Blood Count 10.5 X10*3/uL (4.8-10.8)
[2023-11-15 13:34] LABS: Anion Gap 14 (12-20); Blood Urea Nitrogen 12 mg/dL (9-16); Calcium 9.5 mg/dL (8.4-10.2); Carbon Dioxide 23 mmol/L (22-29); Chloride 104 mmol/L (96-108); Creatinine Clr Calc Pharmacy 130.6; Estimated Glomerular Filt Rate > 60; Glucose Random 174 mg/dL (60-115); Potassium 4.2 mmol/L (3.3-5.1); Sodium 137 mmol/L (135-145)
[2023-11-15 13:46] LABS: Troponin-I High Sensitivity < 2.7 ng/L (<3.5-35.0)
== END 2023-11-15 22:19 | disposition left against medical advice (07) ==
PROVIDERS: Emergency Provider Emergency Medicine; PCP Internal Medicine
DX: R07.89 Other chest pain (principal); R00.2 Palpitations; Z79.899 Other long term (current) drug therapy
CPT/HCPCS: 36415; 80048; 84484; 85025; 93005; 99283

== ENCOUNTER → 2023-11-15 12:25 | Outpatient (BNV) | payer MEDICAID, SELFPAY | PROVIDERS: PCP Internal Medicine; Visit Provider Internal Medicine Cardiovascular Disease | DX: R00.0 Tachycardia, unspecified (principal) | CPT/HCPCS: 93010 ==

== ENCOUNTER 2024-01-24 19:22 | Emergency (ER) | payer MEDICAID, SELFPAY ==
--- NOTE | 2024-01-24 19:40 | ED_ITS ---
HPI - General Adult General Chief complaint: Dental/Oral Stated complaint: tooth pain/headache Time Seen by Provider: 01/24/24 22:19 Source: patient Mode of arrival: ambulatory Limitations: no limitations History of Present Illness HPI narrative: 38-year-old male with a history of diabetes mellitus, hypertension who presents emergency department for evaluation of 2 days of dental pain. Patient states that he has 2 teeth on the right side of his mouth 1 upper 1 lower that are decayed and have been bothering for 2 days. He states that the right side of his face swollen. He had a subjective fever and occasional chills. He denied headache, neck pain, nausea, vomiting, fatigue. States he has been taking Tylenol and ibuprofen with no relief his pain. The pain got worse this evening therefore came to emergency department for evaluation. Patient states he was taking Tylenol every 2-3 hours as well as taking ibuprofen every 2-3 hours for his pain without any relief. Related Data Home Medications Medication Instructions Recorded Confirmed hydrochlorothiazide 12.5 mg tablet 12.5 mg PO QAM 04/13/23 04/13/23 lisinopril 10 mg tablet 10 mg PO DAILY 04/13/23 04/13/23 metformin 500 mg tablet,extended 500 mg PO QPM 04/13/23 04/13/23 release 24 hr Previous Rx's Medication Instructions Recorded ibuprofen 600 mg tablet 600 mg PO Q8H PRN pain #20 tabs 02/24/21 acetaminophen 500 mg tablet 1,000 mg (2 x 500 mg) PO QID PRN 05/29/21 (Tylenol Extra Strength) fever or pain #14 tabs ibuprofen 800 mg tablet 800 mg PO Q8H PRN pain #14 tabs 05/29/21 meclizine 25 mg tablet (Dramamine 25 mg PO TID PRN dizziness #20 tabs 10/24/23 Less Drowsy) hydrochlorothiazide 12.5 mg capsule 12.5 mg PO DAILY #30 caps 11/07/23 lisinopril 20 mg tablet 20 mg PO DAILY #30 tabs 11/07/23 metformin 500 mg tablet,extended 500 mg PO DAILY #30 tabs 11/07/23 release 24 hr acetaminophen 500 mg tablet 1,000 mg (2 x 500 mg) PO Q6H PRN 01/24/24 (Tylenol Extra Strength) fever or pain #20 tabs amoxicillin 500 mg tablet 1,000 mg (2 x 500 mg) PO BID 7 01/24/24 days #28 tabs ibuprofen 400 mg tablet 400 mg PO TID PRN fever or pain 01/24/24 #30 tabs morphine 15 mg immediate release 15 mg PO Q6H PRN pain #10 tabs 01/24/24 tablet Allergies Allergy/AdvReac Type Severity Reaction Status Date / Time No Known Allergies Allergy Verified 11/06/23 23:44 Review of Systems 2 Review of Systems: Yes all other systems are reviewed and are negative [facility] Past Medical History [facility] Narrative: Social history: He denies tobacco use, alcohol use. He states he does smoke marijuana. Medical History Essential hypertension Type 2 diabetes mellitus Diabetes Family History Family History Mother No problems noted. Social History Social History Alcohol intake: never Smoked in Last 30 Days: No Use of substances other than those prescribed or required for medical reasons: Yes Substance Use Type: Marijuana Last Used Substance: Hours (ago) Advance Directives: No Advance Directives Information Provided: No Physical Exam ED Vital Signs: Vital Signs - 24 hr 01/24/24 19:43 01/24/24 22:00 01/24/24 23:00 Temperature 98.6 F 98.2 F 98.4 F Pulse Rate 96 91 88 Respiratory Rate 14 17 16 Blood Pressure 132/84 125/81 138/83 Pulse Oximetry 99 97 98 Oxygen Delivery Method Room Air Room Air Room Air BMI result Body Mass Index 26.8 Vital signs were normal Exam: General: Awake, alert in no distress Head: Normocephalic, atraumatic, patient does have tenderness palpation of the left upper and lower jaw, there has no obvious facial swelling. Mouth exam: Patient does have dental caries, he has tenderness palpation of the right upper and lower gingiva with no obvious apical abscess on palpation. Patient has a tooth in the upper jaw which is decayed below the gum line as well as 1 on the lower jaw which decayed below the gum line as well. Neuro: Awake, alert, oriented, normal speech Psych: Pleasant, cooperative Course Course Course Narrative: This is a rapid medical exam: Additional HPI, ROS, PE not included below will be deferred to primary provider. Patient is a 38-year-old male with history of HTN, T2DM presenting to the ED with complaint of pain and swelling to right lower jaw for the past week. Known broken molars, has not seen a dentist in many years. States he has gone through 2 bottles of Tylenol in the past 2 days, has been taking it every 2 hours. Advised patient of dangers of taking this amount of Tylenol. Plan: labs including tylenol level Medications Administered Discontinued Medications Generic Name Dose Route Start Last Admin Trade Name Freq PRN Reason Stop Dose Admin Amoxicillin 1,000 mg 01/24/24 22:36 01/24/24 22:57 Amoxicillin 500 Mg Capsule PO 01/24/24 22:37 1,000 mg ONCE ONE Administration Morphine Sulfate 15 mg 01/24/24 22:36 01/24/24 22:57 Morphine Sulfate Immed Release 15 Mg Tablet PO 01/24/24 22:37 15 mg ONCE ONE Administration Medical Decision Making Medical Decision Making [facility] Narrative: 38-year-old male with history of diabetes mellitus and hypertension who presents emergency department for evaluation of dental pain x2 days, patient has subjective fever with no other systemic symptoms. Vital signs were normal exam did reveal dental caries with a tooth in both the upper and lower jaw decayed below the gumline with gingival tenderness on the upper and lower right jaw. Differential diagnosis: ?Includes but is not limited to dental caries, dental infection, dental abscess, gingivitis Patient was initially treated with the following: Amoxicillin 1000 mg orally and morphine 15 mg orally Course: My interpretation patient's laboratory evaluation is as follows: WBC elevated 12,800, H&H was normal 12.7 and 40.4. Glucose was elevated 160. LFTs were normal, acetaminophen level was below detectable limits-no evidence for Tylenol toxicity at this time. Patient's presentation and findings are consistent with dental infection secondary to severely decayed teeth in both the upper and lower right jaw area with significant tenderness palpation of the gingiva with no obvious apical abscess. Patient was prescribed amoxicillin 500 mg pills, 2 pills every 12 hours for 7 days for a dental infection. Patient was prescribed Tylenol 1000 mg every 6 hours as needed for pain, ibuprofen 400 mg every 6 hours as needed for pain and for pain not relieved by these medications he was prescribed morphine 15 mg every 6 hours as needed for pain. Patient was advised to follow-up with a dentist at [facility] for re- evaluation in 5-7 days. He was given printed and verbal instructions and discharged home Admission/Observation Consideration of admission/observation: Escalation of care including admission/observation considered Lab Data MDM Lab Attestation statement: I reviewed the patient's lab results. 01/24/24 20:03 01/24/24 20:03 Labs: Lab Results 01/24/24 01/24/24 Range/Units 20:03 20:04 WBC 12.8 H (4.8-10.8) X10*3/uL RBC 5.51 (4.60-5.80) X10*6/uL Hgb 12.7 L (14.0-18.0) g/dl Hct 40.4 L (42.0-52.0) % MCV 73.3 L (80.0-98.0) fL MCH 23.0 L (27.0-33.0) pg MCHC 31.4 (31.0-36.0) g/dl RDW 14.5 (11.0-16.0) % Plt Count 295 (160-400) X10*3/uL MPV 10.1 (9.4-12.4) fL Immature Gran % (Auto) 0.4 (0.0-0.4) % Neut % (Auto) 68.7 (45-73) % Lymph % (Auto) 22.6 (20-40) % [place] % (Auto) 7.3 (2-11) % Eos % (Auto) 0.7 (0-4) % Baso % (Auto) 0.3 (0-2) % Lymph # (Auto) 2.9 (1.2-4.9) X10*3/uL [place] # (Auto) 0.9 (0.1-1.2) X10*3/uL Eos # (Auto) 0.1 (0.0-0.4) X10*3/uL Baso # (Auto) 0.0 (0.0-0.2) X10*3/uL Abs Immat Gran (auto) 0.05 H (0.00-0.03) X10*3/uL Absolute Neuts (auto) 8.8 H (2.0-8.3) x10*3/uL Absolute Nucleated RBC 0.000 (0.0-0.012) X10*3/uL Nucleated RBC % (auto) 0.0 (0.0-0.2) /100WBC Sodium 142 (135-145) mmol/L Potassium 3.4 (3.3-5.1) mmol/L Chloride 104 (96-108) mmol/L Carbon Dioxide 28 (22-29) mmol/L Anion Gap 13 (12-20) BUN 12 (9-16) mg/dL Creatinine 0.92 (0.5-1.4) mg/dL Estim Creat Clear Calc 120.6 Estimated GFR > 60 Random Glucose 160 H (60-115) mg/dL Calcium 10.2 D (8.4-10.2) mg/dL Total Bilirubin 0.2 (0.0-1.0) mg/dL AST 10 (5-37) U/L ALT 9 (0-40) U/L Alkaline Phosphatase 74 (39-117) U/L Total Protein 8.3 H (6.5-8.0) g/dL Albumin 4.6 (3.5-5.0) g/dL Acetaminophen < 3 (<30) mcg/mL Prescription Management I considered prescription management with: Pain Medication and Antibiotic Chronic Conditions Patient?s care impacted by: Diabetes and Hypertension Discharge Plan Discharge Clinical Impression: Dental infection, Dental caries Patient Disposition: Home, Self-Care Instructions: Dental Abscess (ED) Additional Instructions: You have 2 teeth that are decayed below the gum line and they will need to be removed otherwise she will continue to get dental infections. Take amoxicillin 500 mg pills, 2 pills every 12 hours for 7 days. Take ibuprofen 200 mg pills, 3 pills every 6 hours as needed for pain. Take Tylenol (acetaminophen) 2 pills every 4-6 hours as needed for pain. For pain not relieved by ibuprofen or Tylenol take morphine 15 mg pills, 1 pill every 4 hours as needed for pain. This medication will make you sleepy, do not drive or work while taking this medication. Morphine is a narcotic medication and can be addicting. If you are concerned about addiction you can ask the pharmacist for less pills or do not get this prescription filled. Follow-up with a dentist at [facility] for re-evaluation in 7-10 days. Please return to the emergency department if your symptoms get worse or if you develop any symptoms that are concerning to you. Prescriptions: New acetaminophen [Tylenol Extra Strength] 500 mg tablet 1,000 mg PO Q6H PRN (Reason: fever or pain) Qty: 20 0RF ibuprofen 400 mg tablet 400 mg PO TID PRN (Reason: fever or pain) Qty: 30 0RF morphine 15 mg tablet 15 mg PO Q6H PRN (Reason: pain) Qty: 10 0RF Rx Instructions: The patient may ask for partial fill; Partial Fill upon patient request. amoxicillin 500 mg tablet 1,000 mg PO BID 7 Days Qty: 28 0RF No Action ibuprofen 600 mg tablet 600 mg PO Q8H PRN (Reason: pain) Qty: 20 0RF ibuprofen 800 mg tablet 800 mg PO Q8H PRN (Reason: pain) Qty: 14 0RF acetaminophen [Tylenol Extra Strength] 500 mg tablet 1,000 mg PO QID PRN (Reason: fever or pain) Qty: 14 0RF meclizine [Dramamine Less Drowsy] 25 mg tablet 25 mg PO TID PRN (Reason: dizziness) Qty: 20 0RF lisinopril 20 mg tablet 20 mg PO DAILY Qty: 30 0RF hydrochlorothiazide 12.5 mg capsule 12.5 mg PO DAILY Qty: 30 0RF metformin 500 mg tablet extended release 24 hr 500 mg PO DAILY Qty: 30 0RF lisinopril 10 mg tablet 10 mg PO DAILY hydrochlorothiazide 12.5 mg tablet 12.5 mg PO QAM metformin 500 mg tablet extended release 24 hr 500 mg PO QPM Interventions: ED Discharge Assessment Last Done: 01/24/24 23:02 Discharge Date/Time: 01/24/24 23:03
[2024-01-24 19:43] VITALS: BP 132/84; PULSE 96; RESP 14; TEMP 37; O2SAT 99; BMI 26.8
[2024-01-24 20:07] LABS: MANUAL DIFF FLAG NO
[2024-01-24 20:09] LABS: Basophils Percent Auto 0.3 % (0-2); Eosinophils Absolute Auto 0.1 X10*3/uL (0.0-0.4); Eosinophils Percent Auto 0.7 % (0-4); Hematocrit 40.4 % (42.0-52.0); Hemoglobin 12.7 g/dl (14.0-18.0); Imm Gran Abs Auto 0.05 X10*3/uL (0.00-0.03); Imm Gran Pct Auto 0.4 % (0.0-0.4); Lymphocytes Absolute Auto 2.9 X10*3/uL (1.2-4.9); Lymphocytes Percent Auto 22.6 % (20-40); Mean Corpuscular HGB Conc 31.4 g/dl (31.0-36.0); Mean Corpuscular Volume 73.3 fL (80.0-98.0); Mean Platelet Volume 10.1 fL (9.4-12.4); Monocytes Absolute Auto 0.9 X10*3/uL (0.1-1.2); Monocytes Percent Auto 7.3 % (2-11); Neutrophils Absolute Auto 8.8 x10*3/uL (2.0-8.3); Neutrophils Percent Auto 68.7 % (45-73); Platelet Count 295 X10*3/uL (160-400); Red Blood Count 5.51 X10*6/uL (4.60-5.80); Red Cell Distribution Width 14.5 % (11.0-16.0); White Blood Count 12.8 X10*3/uL (4.8-10.8)
[2024-01-24 20:22] LABS: Alanine Aminotransferase 9 U/L (0-40); Albumin Level 4.6 g/dL (3.5-5.0); Alkaline Phosphatase 74 U/L (39-117); Anion Gap 13 (12-20); Aspartate Amino Transferase 10 U/L (5-37); Bilirubin Total 0.2 mg/dL (0.0-1.0); Blood Urea Nitrogen 12 mg/dL (9-16); Calcium 10.2 mg/dL (8.4-10.2); Carbon Dioxide 28 mmol/L (22-29); Chloride 104 mmol/L (96-108); Creatinine Clr Calc Pharmacy 120.6; Estimated Glomerular Filt Rate > 60; Glucose Random 160 mg/dL (60-115); Potassium 3.4 mmol/L (3.3-5.1); Sodium 142 mmol/L (135-145); Total Protein 8.3 g/dL (6.5-8.0)
[2024-01-24 20:24] LABS: Acetaminophen LAB < 3 mcg/mL (<30)
[2024-01-24 22:00] VITALS: BP 125/81; PULSE 91; RESP 17; TEMP 36.8; O2SAT 97
--- NOTE | 2024-01-24 22:04 | PC.NURSE ---
pt from home reporting increasing tooth pain after getting two teeth pulled by the dentist. pt reports pain increases with eating. pt reports taking 2 tylenol every 2-3 hours without releif and reports needing more pain medication.
[2024-01-24] MEDS: Morphine Sulfate Immed Release 15 MG TABLET PO (22:57)
[2024-01-24] MEDS: Amoxicillin 500 MG CAPSULE 1000 MG PO (22:57)
[2024-01-24 23:00] VITALS: BP 138/83; PULSE 88; RESP 16; TEMP 36.9; O2SAT 98
== END 2024-01-24 23:03 | disposition home or self-care (01) ==
PROVIDERS: Registered Nurse Emergency; Emergency Provider Emergency Medicine Emergency Medical Services; PCP Internal Medicine
DX: K02.9 Dental caries, unspecified (principal); Z79.899 Other long term (current) drug therapy
CPT/HCPCS: 36415; 80053; 80143; 85025; 99283; 99284

== ENCOUNTER 2024-06-23 21:16 | Emergency (ER) | payer MEDICAID, SELFPAY ==
[2024-06-23 21:20] VITALS: BP 145/91; PULSE 86; RESP 16; TEMP 36.9; O2SAT 99; BMI 25.8
--- NOTE | 2024-06-23 23:25 | PC.NURSE ---
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 instructed against continued walking unassisted if pt cannot see, bed rails raised for safety and call espinosa placed within reach.
[2024-06-23] MEDS: Ketorolac Tromethamine 60 MG/2 ML VIAL IM (23:47)
[2024-06-23] MEDS: Penicillin V Potassium 250 MG TABLET 500 MG PO (23:48)
--- NOTE | 2024-06-24 | ED.DENTAL ---
HPI - Dental/Oral General Chief complaint: Dental/Oral Stated complaint: tooth pain rt side/head Time Seen by Provider: 06/23/24 23:17 Source: patient Mode of arrival: ambulatory Limitations: no limitations History of Present Illness ED Provider: Dr. Eloise Dang HPI Narrative: Patient comes to the emergency room complaining of dental pain for couple of days. Patient has had this happened multiple times before. Patient known to have poor dentition, patient does not have a dentist. Patient denies fever chills. Related Data Home Medications ?Medication ?Instructions ?Recorded ?Confirmed hydrochlorothiazide 12.5 mg tablet 12.5 mg PO QAM 04/13/23 04/13/23 lisinopril 10 mg tablet 10 mg PO DAILY 04/13/23 04/13/23 metformin 500 mg tablet,extended 500 mg PO QPM 04/13/23 04/13/23 release 24 hr Previous Rx's ?Medication ?Instructions ?Recorded ibuprofen 600 mg tablet 600 mg PO Q8H PRN pain #20 tabs 02/24/21 acetaminophen 500 mg tablet 1,000 mg (2 x 500 mg) PO QID PRN 05/29/21 (Tylenol Extra Strength) fever or pain #14 tabs ibuprofen 800 mg tablet 800 mg PO Q8H PRN pain #14 tabs 05/29/21 meclizine 25 mg tablet (Dramamine 25 mg PO TID PRN dizziness #20 tabs 10/24/23 Less Drowsy) hydrochlorothiazide 12.5 mg capsule 12.5 mg PO DAILY #30 caps 11/07/23 lisinopril 20 mg tablet 20 mg PO DAILY #30 tabs 11/07/23 metformin 500 mg tablet,extended 500 mg PO DAILY #30 tabs 11/07/23 release 24 hr acetaminophen 500 mg tablet 1,000 mg (2 x 500 mg) PO Q6H PRN 01/24/24 (Tylenol Extra Strength) fever or pain #20 tabs amoxicillin 500 mg tablet 1,000 mg (2 x 500 mg) PO BID 7 01/24/24 days #28 tabs ibuprofen 400 mg tablet 400 mg PO TID PRN fever or pain 01/24/24 #30 tabs morphine 15 mg immediate release 15 mg PO Q6H PRN pain #10 tabs 01/24/24 tablet chlorhexidine gluconate 0.12 % 15 ml buccal BID #473 mL 06/24/24 mouthwash ketorolac 10 mg tablet 10 mg PO Q8H PRN pain #12 tabs 06/24/24 penicillin V potassium 500 mg 500 mg PO TID 10 days #30 tabs 06/24/24 tablet Allergies Allergy/AdvReac Type Severity Reaction Status Date / Time No Known Allergies Allergy Verified 06/23/24 21:21 Review of Systems Review of Systems: Constitutional : No Weight loss, No Fever, No Chills, No Night Sweats, No Fatigue, No Malaise ENT/Mouth : Complaining of chronic dental pain, worse on the right side , mandible and maxilla. No Hearing loss, No Ear Pain, No Nasal Congestion, No Sinus Pain, No Hoarseness, No sore throat, No Rhinorrhea, No Swallowing Difficulty Eyes: No Eye Pain, No Swelling, No Redness, No Foreign Body, No Discharge, No Vision Changes Cardiovascular : No Chest Pain, No SOB, No Dyspnea on Exertion, No Orthopnea, No Edema, No Palpitations Respiratory : No Cough, No Sputum, No Wheezing, No Smoke Exposure, No Dyspnea Gastrointestinal : No Nausea, No Vomiting, No Diarrhea, No Constipation, No abdominal Pain, No Hematochezia, No Melena Genitourinary : no irregular bleeding, No Dysuria, No Urinary Frequency, No Hematuria, No Urinary Incontinence, No Urgency, No Flank Pain, No Urinary Flow Changes, No Hesitancy Musculoskeletal : No joint pain, No Myalgias, No Joint Swelling Skin : No Skin Lesions, No rash Neuro : No Weakness, No Numbness, No Paresthesias, No Loss of Consciousness, No Dizziness, No Headache Psych : No Anxiety/Panic, No Depression, No SI/HI/AH/VH, No Social Issues, Heme/Lymph: No Bruising, No Bleeding,No Lymphadenopathy Endocrine : No Polyuria, No Polydipsia, No Temperature Intolerance PMFSH Past Medical History Medical History Essential hypertension Type 2 diabetes mellitus Diabetes Family History Family History Mother No problems noted. Social History Social History Alcohol intake: never Smoked in Last 30 Days: No Substance Use Type: Marijuana Advance Directives: No Advance Directives Information Provided: No Do you have a plan to hurt others: No Plan Physical Exam Vital Signs: Vital Signs: Last Vital Signs Temp 98.4 F 06/23/24 21:20 Pulse 86 06/23/24 21:20 Resp 16 06/23/24 21:20 BP 145/91 H 06/23/24 21:20 Pulse Ox 99 06/23/24 21:20 O2 Del Method Room Air 06/23/24 21:20 BMI result Body Mass Index 25.8 Const: Other: Appearance: Alert. Oriented X3. No acute distress. Eyes: Pupils equal, round and reactive to light. ENT: Pharynx normal. Patient has generalized dentition, several after ulcers in the mouth, her edematous gingiva in axilla. Poor dentition overall, no obvious abscess that could be drained Neck: Normal inspection. Neck supple. No lymph nodes noted. No crepitus CVS: Normal heart rate and rhythm. Pulses normal. Normal S1 and S2 Respiratory: No respiratory distress. Breath sounds normal. No Wheezing. No rales Abdomen: Soft and nontender. No rigidity. No distention. Skin: Skin warm and dry. Normal skin color. Normal skin turgor. Extremities: No lower extremity edema. No Lacerations. No Rash Neuro: Oriented X 3. No motor deficit. No sensory deficit. Moving all extremities. No slurred speech. CN 2 through 12 grossly intact Psych: calm, cooperative, normal affect Medications Administered Discontinued Medications Generic Name Dose Route Start Last Admin Trade Name Freq PRN Reason Stop Dose Admin Ketorolac Tromethamine 60 mg 06/23/24 23:38 06/23/24 23:47 Ketorolac Tromethamine 60 Mg/2 Ml Vial IM 06/23/24 23:39 60 mg ONCE ONE Administration Penicillin V Potassium 500 mg 06/23/24 23:38 06/23/24 23:48 Penicillin V Potassium 250 Mg Tablet PO 06/23/24 23:39 500 mg ONCE ONE Administration Medical Decision Making Medical Decision Making [facility] Narrative: I discussed the physical exam with the patient, patient has poor dentition Patient given IM Toradol and p.o. penicillin Patient aware that he needs to be seen by his dentist. Discharge Plan Discharge Clinical Impression: Pain, dental Patient Disposition: Home, Self-Care Instructions: Toothache (ED) Additional Instructions: Please follow-up with your primary care physician tomorrow. If you have any worsening or new symptoms, please return to the emergency room or call 911 Prescriptions: New penicillin V potassium 500 mg tablet 500 mg PO TID 10 Days Qty: 30 0RF ketorolac 10 mg tablet 10 mg PO Q8H PRN (Reason: pain) Qty: 12 0RF Rx Instructions: Do not use this medication with NSAIDs. Only Tylenol if needed chlorhexidine gluconate 0.12 % mouthwash 15 ml buccal BID Qty: 473 0RF No Action ibuprofen 600 mg tablet 600 mg PO Q8H PRN (Reason: pain) Qty: 20 0RF ibuprofen 800 mg tablet 800 mg PO Q8H PRN (Reason: pain) Qty: 14 0RF acetaminophen [Tylenol Extra Strength] 500 mg tablet 1,000 mg PO QID PRN (Reason: fever or pain) Qty: 14 0RF meclizine [Dramamine Less Drowsy] 25 mg tablet 25 mg PO TID PRN (Reason: dizziness) Qty: 20 0RF lisinopril 20 mg tablet 20 mg PO DAILY Qty: 30 0RF hydrochlorothiazide 12.5 mg capsule 12.5 mg PO DAILY Qty: 30 0RF metformin 500 mg tablet extended release 24 hr 500 mg PO DAILY Qty: 30 0RF acetaminophen [Tylenol Extra Strength] 500 mg tablet 1,000 mg PO Q6H PRN (Reason: fever or pain) Qty: 20 0RF ibuprofen 400 mg tablet 400 mg PO TID PRN (Reason: fever or pain) Qty: 30 0RF morphine 15 mg tablet 15 mg PO Q6H PRN (Reason: pain) Qty: 10 0RF Rx Instructions: The patient may ask for partial fill; Partial Fill upon patient request. amoxicillin 500 mg tablet 1,000 mg PO BID 7 Days Qty: 28 0RF lisinopril 10 mg tablet 10 mg PO DAILY hydrochlorothiazide 12.5 mg tablet 12.5 mg PO QAM metformin 500 mg tablet extended release 24 hr 500 mg PO QPM Print Language: Tajik
[2024-06-24 00:20] VITALS: BP 132/76; PULSE 81; RESP 16; TEMP 37; O2SAT 98
== END 2024-06-24 00:22 | disposition home or self-care (01) ==
PROVIDERS: Emergency Provider Emergency Medicine; PCP Internal Medicine
DX: K08.89 Other specified disorders of teeth and supporting structures (principal); E11.9 Type 2 diabetes mellitus without complications; I10 Essential (primary) hypertension; Z79.84 Long term (current) use of oral hypoglycemic drugs; Z79.899 Other long term (current) drug therapy
CPT/HCPCS: 96372; 99284; J1885